=== PATIENT | male | born 1950 | race Caucasian/White ===

== ENCOUNTER 2016-03-21 11:06 | Outpatient (CLI) | payer MEDICARE | END 2016-03-21 11:07 | disposition home or self-care (01) | DX: I48.91 Unspecified atrial fibrillation (principal); I51.7 Cardiomegaly ==

== ENCOUNTER 2016-06-30 17:04 | Outpatient (CLI) | payer MEDICARE | END 2016-06-30 17:05 | disposition EMS.NT | DX: R00.2 Palpitations (principal); R53.83 Other fatigue; R53.1 Weakness ==

== ENCOUNTER 2019-05-25 17:08 | Outpatient (CLI) | payer MEDICARE | END 2019-05-25 17:09 | disposition critical access hospital (66) | LOC: EMS 17:08 | PROVIDERS: ATTEND Surgery | DX: R53.1 Weakness (principal); R29.810 Facial weakness | CPT/HCPCS: A0425; A0427 ==

== ENCOUNTER 2019-05-25 17:23 | Inpatient (IN) | payer MEDICARE, MEDICAID ==
[2019-05-25 17:42] LABS: BASOPHILS # (AUTO) 0.1 10^3/uL (0.0-0.1); BASOPHILS % (AUTO) 0.5 %; EOSINOPHILS # (AUTO) 0.1 10^3/uL (0.0-0.7); EOSINOPHILS % (AUTO) 0.9 %; HGB - HEMOGLOBIN 16.6 g/dL (14.0-18.0); LYMPHOCYTES # (AUTO) 1.1 10^3/uL (1.5-3.5); LYMPHOCYTES % (AUTO) 12.1 %; MEAN CORPUSCULAR HEMOGLOBIN 28.9 pg (27.0-31.0); MEAN CORPUSCULAR HGB CONC 31.9 g/dL (32.0-36.0); MEAN CORPUSCULAR VOLUME 90.6 fL (80.0-94.0); MEAN PLATELET VOLUME 11.2 fL (7.4-11.4); MONOCYTES # (AUTO) 0.8 10^3/uL (0.0-1.0); MONOCYTES % (AUTO) 8.3 %; NEUTROPHILS # (AUTO) 7.1 10^3/uL (1.5-6.6); PLT - PLATELET COUNT 243 10^3/uL (130-450); RED BLOOD COUNT 5.75 10^6/uL (4.70-6.10); RED CELL DISTRIBUTION WIDTH 15.3 % (12.0-15.0); WHITE BLOOD COUNT 9.1 x10^3/uL (4.8-10.8)
--- NOTE | 2019-05-25 17:43 | ED Physician Documentation ---
PD HPI FOCAL NEURO - Stated complaint Stated Complaint: POSS STROKE - Chief complaint Chief Complaint: Neuro - History obtained from History obtained from: Patient, EMS - History of Present Illness Timing - onset: Last night Timing - duration: Hours (19) Timing - details: Abrupt onset Severity of deficit: Severe Weakness: Face, Arm, Hand, Leg, Foot, Left Numbness: No: Face, Arm, Hand, Leg, Foot, Right, Left Associated symptoms: Fall. No: Headache, Nausea / vomiting, Seizure, Syncope, Head injury, Chest pain, Neck pain, Back pain, Fever Contributing factors: positive: Anticoagulated (pt unsure what medication he takes), Atrial fibrillation Baseline status: positive: A&OX3, ambulatory, indep Similar symptoms before: Diagnosis (R sided stroke in 2009 in [place]) Recently seen: Not recently seen Review of Systems Ten Systems: 10 systems reviewed and negative Constitutional: denies: Fever, Chills Ears: denies: Ear pain Nose: denies: Rhinorrhea / runny nose, Congestion GI: denies: Vomiting, Diarrhea Skin: denies: Rash Musculoskeletal: denies: Neck pain, Back pain Neurologic: reports: Focal weakness. denies: Seizure, Confused, Headache PD PAST MEDICAL HISTORY - Past Medical History Past Medical History: Yes Cardiovascular: Hypertension, Atrial fibrillation Neuro: CVA - Present Medications Home Medications: Ambulatory Orders Medication Instructions Recorded Confirmed Amlodipine Besylate 10 mg PO DAILY 01/18/15 01/18/15 lisinopriL [Lisinopril] 20 mg PO DAILY 01/18/15 05/25/19 Carvedilol 12.5 mg PO DAILY 05/25/19 05/25/19 Furosemide 40 mg PO DAILY 05/25/19 05/25/19 Levothyroxine [Synthroid] 100 mcg PO DAILY 05/25/19 05/25/19 Warfarin Sodium 5 mg PO DAILY 05/25/19 05/25/19 amLODIPine [Norvasc] 10 mg PO DAILY 05/25/19 05/25/19 - Allergies Allergies/Adverse Reactions: Allergies Allergy/AdvReac Type Severity Reaction Status Date / Time erythromycin base Allergy Unknown Verified 05/25/19 17:32 - Living Situation Living Arrangement: reports: At home - Social History Does the pt smoke?: No Smoking Status: Never smoker Does the pt have substance abuse?: No - Family History Family history: reports: Non contributory PD ED PE NORMAL - Vitals Vital signs reviewed: Yes - General General: Alert and oriented X 3, No acute distress, Well developed/nourished - HEENT HEENT: PERRL, Ears normal, Moist mucous membranes - Neck Neck: Supple, no meningeal sign - Cardiac Cardiac: RRR, Strong equal pulses - Respiratory Respiratory: No respiratory distress, Clear bilaterally - Abdomen Abdomen: Soft, Non tender, Non distended - Back Back: No spinal TTP - Derm Derm: Warm and dry - Extremities Extremities: No tenderness to palpate - Neuro Neuro: Alert and oriented X 3, No sensory deficit, Other (see NIHSS) Eye Opening: Spontaneous Motor: Obeys Commands Verbal: Oriented GCS Score: 15 - Psych Psych: Normal mood, Normal affect NIHSS - Time Time: 17:40 - Level of Consciousness Level of consciousness: (0) Alert, Keenly responsive LOC Questions: (0) Answers both Q's correct LOC Commands: (0) Performs both correctly - Gaze Best Gaze: (0) Normal - Visual Visual: (0) No loss - Facial Palsy Facial Palsy: (2) Partial paralysis - Motor Arms (both separate) Motor Arm (right): (0) No drift Motor Arm (left): (3) No effort against gravity - Motor Legs (both separate) Motor Leg (right): (0) No drift Motor Leg (left): (2) Some effort against gravity - Limb Ataxia Limb Ataxia: (2) Present in 2 limbs - Sensory Sensory: (0) Normal - Best Language Best Language: (1) [id number] - Dysarthria Dysarthria: (1) [id number] dysarthria - Extinction and Inattention (formally neg Extinction and inattention: (0) No abnormality - Total Score/Results Total Score/Result: 11 Results - Vitals Vitals: Vital Signs - 24 hr 05/25/19 05/25/19 17:32 18:12 Temperature 36.3 C L Heart Rate 134 H 108 H Respiratory 20 14 Rate Blood Pressure 195/156 H O2 Saturation 100 97 Oxygen O2 Source Room air - EKG (time done) 1734 Rate: Rate (enter#) (113) Rhythm: Atrial fibrillation (with RVR) [place]: Normal QRS: LVH - Labs Labs: Laboratory Tests 05/25/19 05/25/19 05/25/19 17:25 17:25 17:25 WBC 9.1 RBC 5.75 Hgb 16.6 Hct 52.1 H MCV 90.6 MCH 28.9 MCHC 31.9 L RDW 15.3 H Plt Count 243 MPV 11.2 Neut # (Auto) 7.1 H Lymph # (Auto) 1.1 L Calloway # (Auto) 0.8 Eos # (Auto) 0.1 Baso # (Auto) 0.1 Absolute Nucleated RBC 0.00 Nucleated RBC % 0.0 PT 14.3 H INR 1.3 H APTT 28.4 Anti-Xa Level Sodium 142 Potassium 3.3 L Chloride 106 Carbon Dioxide 26 Anion Gap 10.0 BUN 33 H Creatinine 1.9 H Estimated GFR (MDRD) 35 L Glucose 82 Calcium 9.1 Magnesium Total Bilirubin 2.1 H AST 19 ALT 15 Alkaline Phosphatase 55 Troponin I High Sens Total Protein 7.6 Albumin 3.9 Globulin 3.7 Albumin/Globulin Ratio 1.1 Lipase 23 Urine Color Urine Clarity Urine pH Ur Specific Terrell Urine Protein Urine Glucose (UA) Urine Ketones Urine Occult Blood Urine Nitrite Urine Bilirubin Urine Urobilinogen Ur Leukocyte Esterase Urine RBC Urine WBC Ur Squamous Epith Cells Urine Bacteria Ur Microscopic Review Urine Culture Comments 05/25/19 05/25/19 05/25/19 17:25 17:25 17:25 WBC RBC Hgb Hct MCV MCH MCHC RDW Plt Count MPV Neut # (Auto) Lymph # (Auto) Calloway # (Auto) Eos # (Auto) Baso # (Auto) Absolute Nucleated RBC Nucleated RBC % PT INR APTT Anti-Xa Level 0.0 Sodium Potassium Chloride Carbon Dioxide Anion Gap BUN Creatinine Estimated GFR (MDRD) Glucose Calcium Magnesium 2.5 Total Bilirubin AST ALT Alkaline Phosphatase Troponin I High Sens 138.9 H* Total Protein Albumin Globulin Albumin/Globulin Ratio Lipase Urine Color Urine Clarity Urine pH Ur Specific Terrell Urine Protein Urine Glucose (UA) Urine Ketones Urine Occult Blood Urine Nitrite Urine Bilirubin Urine Urobilinogen Ur Leukocyte Esterase Urine RBC Urine WBC Ur Squamous Epith Cells Urine Bacteria Ur Microscopic Review Urine Culture Comments 05/25/19 19:15 WBC RBC Hgb Hct MCV MCH MCHC RDW Plt Count MPV Neut # (Auto) Lymph # (Auto) Calloway # (Auto) Eos # (Auto) Baso # (Auto) Absolute Nucleated RBC Nucleated RBC % PT INR APTT Anti-Xa Level Sodium Potassium Chloride Carbon Dioxide Anion Gap BUN Creatinine Estimated GFR (MDRD) Glucose Calcium Magnesium Total Bilirubin AST ALT Alkaline Phosphatase Troponin I High Sens Total Protein Albumin Globulin Albumin/Globulin Ratio Lipase Urine Color YELLOW Urine Clarity CLEAR Urine pH 6.0 Ur Specific Terrell >=1.030 H Urine Protein 100 H Urine Glucose (UA) NEGATIVE Urine Ketones TRACE Urine Occult Blood SMALL H Urine Nitrite NEGATIVE Urine Bilirubin NEGATIVE Urine Urobilinogen 0.2 (NORMAL) Ur Leukocyte Esterase NEGATIVE Urine RBC 0-5 Urine WBC 0-3 Ur Squamous Epith Cells RARE Squamous Urine Bacteria Rare Ur Microscopic Review INDICATED Urine Culture Comments NOT INDICATED - Rads (name of study) head CT Radiology: Prelim report reviewed, EMP read contemporaneously, See rad report (1. There is a small region of white matter abnormality involving the posterior right frontal lobe measuring 15 x 15 mm that may represent a region of late acute to subacute infarct. Consider MR brain for further evaluation. 2. No acute intracranial hemorrhage, mass, hydrocephalus, or midline shift. 3. Small-volume encephalomalacia and gliosis of the right frontal lobe that may represent region of prior infarct. 4. Old chronic lacunar infarcts are seen, as detailed above. There is additional mild to moderate white matter changes that appear chronic suggesting potential sequela of chronic small vessel ischemic disease. ) PD MEDICAL DECISION MAKING - ED course Complexity details: reviewed results, re-evaluated patient, considered differential, d/w patient, d/w [facility] consultant ED course: 69-year-old male with a dense left-sided hemiparesis that occurred approximately 19 to 20 hours prior to arrival. His CT scan shows evidence of a subacute infarct. Discussed the case with [facility] neurology, we will admit the patient here for further evaluation and care. He is also found to be in atrial fibrillation with rapid ventricular response. A diltiazem drip was going to be started, but his rate became controlled on its own. He does not appear to be taking his warfarin at home. Discussed the case with Dr. Call, hospitalist who accepts This document was made in part using voice recognition software. While efforts are made to proofread this document, sound alike and grammatical errors may occur. His friend came to the emergency department and went home to get his medications and his medication list. She states that his warfarin bottle is full and the pills do not appear to have been taken. She states he has a history of depression as well. Departure - Departure Disposition: 66 [facility] DC/Xfer Clinical Impression: Atrial fibrillation with rapid ventricular response Cerebrovascular accident (CVA) Qualifiers: CVA mechanism: unspecified Qualified Code(s): I63.9 - Cerebral infarction, unspecified Hypertension Qualifiers: Hypertension type: essential hypertension Qualified Code(s): I10 - Essential (primary) hypertension Condition: Stable
[2019-05-25 17:48] LABS: INR 1.3 (0.8-1.2); PT - PROTHROMBIN TIME 14.3 secs (9.9-12.6)
[2019-05-25 17:54] LABS: ALBUMIN 3.9 g/dL (3.2-5.5); ALBUMIN/GLOBULIN RATIO 1.1 (1.0-2.2); BILIRUBIN,TOTAL 2.1 mg/dL (0.2-1.0); CALCIUM 9.1 mg/dL (8.5-10.3); CREATININE 1.9 mg/dL (0.6-1.2); TOTAL PROTEIN 7.6 g/dL (6.7-8.2)
[2019-05-25 17:55] LABS: PARTIAL THROMBOPLASTIN TIME 28.4 secs (24.9-33.3)
[2019-05-25] MEDS ORDERED: diltiaZEM INJ 125 MG in DEXTROSE 5% 100 ML IV STA (18:10)
--- NOTE | 2019-05-25 18:12 | CT Report ---
Reason: L sided weakness Procedure Date: 05/25/2019 Accession Number: [id number] / [id number] Procedure: CT - Head W/O Stroke Protocol CPT Code: Final Report FULL RESULT: EXAM: CT HEAD. EXAM DATE: 05/25/2019 05:53 PM. CLINICAL HISTORY: 69-year-old presenting with left-sided weakness and facial droop since 2200 hours on 05/24/2019. Evaluate for intracranial pathology. COMPARISON: HEAD 04/03/2007 1:23 PM. TECHNIQUE: Multiaxial CT images were obtained from the foramen magnum to the vertex. Reformats: Sagittal and coronal. IV contrast: None. In accordance with CT protocol optimization, one or more of the following dose reduction techniques were utilized for this exam: automated exposure control, adjustment of mA and/or KV based on patient size, or use of iterative reconstructive technique. FINDINGS: Parenchyma: There is a region of white matter normality involving the posterior right frontal lobe measuring 15 x 15 mm (series 3, image 20). Small volume encephalomalacia and gliosis of the right frontal lobe. There is old chronic lacunar infarct involving the left thalamus, right putamen, right anterior limb of the right internal capsule, right centrum semiovale, and left centrum semiovale. There is additional mild bilateral areas of white matter hypoattenuation seen that are age-indeterminate but appear chronic. No acute parenchymal hemorrhage, mass, or midline shift. Extraaxial Spaces: Normal for age. No subdural or epidural collections identified. Ventricles: Normal in size and position. Sinuses and Orbits: Imaged paranasal sinuses, orbits, and mastoids show no significant abnormality. Bones: No evidence of fracture or calvarial defect. Other: Vascular calcifications of the cavernous and supraclinoid ICA segments. IMPRESSION: 1. There is a small region of white matter abnormality involving the posterior right frontal lobe measuring 15 x 15 mm that may represent a region of late acute to subacute infarct. Consider MR brain for further evaluation. 2. No acute intracranial hemorrhage, mass, hydrocephalus, or midline shift. 3. Small-volume encephalomalacia and gliosis of the right frontal lobe that may represent region of prior infarct. 4. Old chronic lacunar infarcts are seen, as detailed above. There is additional mild to moderate white matter changes that appear chronic suggesting potential sequela of chronic small vessel ischemic disease. RADIA The critical test notification system was initiated by Dr. Julien Benson at 06:11 PM on 05/25/2019. The above critical test findings were discussed with Sy Schuster by Dr. Julien Benson at 06:12 PM on 05/25/2019.
[2019-05-25] MEDS ORDERED: ACETAMINOPHEN 325 MG TABLET PO PRN (19:23)
[2019-05-25 19:24] LABS: BILIRUBIN,URINE NEGATIVE (NEGATIVE); GLUCOSE, URINE (UA) NEGATIVE (NEGATIVE); KETONES,URINE (UA) TRACE mg/dL (NEGATIVE); LEUKOCYTE ESTERASE, URINE NEGATIVE (NEGATIVE); NITRITE,URINE NEGATIVE (NEGATIVE); OCCULT BLOOD,URINE SMALL (NEGATIVE); PROTEIN,URINE 100 mg/dL (NEGATIVE); UROBILINOGEN,URINE 0.2 (NORMAL) E.U./dL (NORMAL)
[2019-05-25] MEDS ORDERED: ASPIRIN CHEW 81 MG TABLET PO STA (19:27)
[2019-05-25] MEDS ORDERED: POTASSIUM CHLORIDE 20 MEQ TABLET PO STA (19:34)
[2019-05-25 19:36] LABS: CLARITY,URINE CLEAR (CLEAR)
[2019-05-25 19:40] LABS: BACTERIA,URINE Rare /HPF (None Seen); RBC,URINE 0-5 /HPF (0-5); SQUAMOUS EPITHELIAL CELL,UR RARE Squamous (<= Few)
--- NOTE | 2019-05-25 19:40 | HISTORY & PHYSICAL EXAMINATION ---
Chief Complaint - Chief Complaint Chief Complaint: Left side weakness History of Present Illness - Admitted From Admitted From:: Home - History Obtained From Records Reviewed: Yes History obtained from: Patient, ER Physician, EMR - History of Present Illness HPI Comment/Other: This is a 69-year-old male with a past medical history significant for atrial fibrillation, hypertension, hypothyroidism, chronic kidney disease stage III, prior history of stroke who presents today complaining of left-sided weakness that began yesterday at 10 PM. He states he is a prior history of stroke about 10 years ago but has no residual deficits from that. At baseline, he ambulates on his own without a cane or walker. He states his symptoms have not improved today and that is why he sought medical attention. He reports feeling weak in his left arm and left leg. He is unable to move his left upper extremity except for squeezing his hand. He is barely able to lift his left leg off of the bed. He states he kept on falling at home because of the weakness. He reports no headache, blurry vision, numbness. He reports no right-sided weakness. He denies any chest pain, dyspnea. He states he does have hypertension and he is on antihypertensives but he did not take them today. States he is also on Coumadin but he is not always compliant with the medication. A family friend told the emergency department provider that his prescription for warfarin had a full bottle still. She also told the emergency department provider that he has not been himself this past few weeks and that he appears depressed. In the emergency department, he was found to be afebrile with temperature of 36.3 C. He was tachycardic with a heart rate of 134 and in atrial fibrillation. He was also hypertensive with a blood pressure of 195/156. He was not tachypneic and saturating well on room air. CT of the head was obtained which was concerning for an acute subacute 15 x 15 mm infarct in the right posterior frontal lobe. Given these findings, medicine was consulted for admission. I did discuss goals of care with the patient and he would like to be a full code . History - Past Medical History Cardiovascular: reports: Hypertension, Atrial fibrillation Neuro: reports: CVA Endocrine/Autoimmune: reports: HyPOthyroidism : reports: Renal insuffiency MRSA Hx?: No - Family & Social History Family History Comment/Other: He does not recall any family history to his knowledge. He reports both of his parents are . Living arrangement: At home Living Situation: Alone Social History Notes: He lives at home alone. He is now retired but was previously [place] an auto insurance follow [place] He [place]. He also denies alcohol use. - Substance History Use: Uses substance without health or social issues: NONE Meds/Allgy - Home Medications Home Medications: Ambulatory Orders Medication Instructions Recorded Confirmed Amlodipine Besylate 10 mg PO DAILY 01/18/15 01/18/15 lisinopriL [Lisinopril] 20 mg PO DAILY 01/18/15 05/25/19 Carvedilol 12.5 mg PO DAILY 05/25/19 05/25/19 Furosemide 40 mg PO DAILY 05/25/19 05/25/19 Levothyroxine [Synthroid] 100 mcg PO DAILY 05/25/19 05/25/19 Warfarin Sodium 5 mg PO DAILY 05/25/19 05/25/19 amLODIPine [Norvasc] 10 mg PO DAILY 05/25/19 05/25/19 - Allergies Allergies/Adverse Reactions: Allergies Allergy/AdvReac Type Severity Reaction Status Date / Time erythromycin base Allergy Unknown Verified 05/25/19 17:32 Review of Systems - Constitutional Constitutional: reports: Weakness - Eyes Eyes: denies: Blurred vision - Ears, Nose & Throat Ears, Nose & Throat: denies: Nasal congestion, Sore throat - Cardiovascular Cariovascular: reports: Edema. denies: Palpitations, Chest pain, Exertional dyspnea, Decr. exercise tolerance - Respiratory Respiratory: denies: Cough, SOB at rest, SOB with exertion - Gastrointestinal Gastrointestinal: denies: Abdominal pain, Nausea, Vomiting - Genitourinary Genitourinary: denies: Dysuria, Frequency, Hematuria - Musculoskeletal Musculoskeletal: reports: Muscle weakness. denies: Muscle pain - Integumentary Integumentary: denies: Rash - Neurological Neurological: reports: Focal weakness. denies: Headache, Dizziness, Numbness - Hematologic/Lymphatic Hematologic/Lymphatic: denies: Anemia, Bleeding tendencies - All Other Systems All Other Systems: reports: Reviewed and negative Prior Level of Functionality: He was independent with his ADLs prior to this admission. Exam - Vital Signs Reviewed Vital Signs: Yes Vital Signs: Vital Signs x48h Temp Pulse Resp BP Pulse Ox 05/25/19 18:12 108 H 14 97 05/25/19 17:32 36.3 C L 134 H 20 195/156 H 100 - Physical Exam General Appearance: positive: Alert, Mild distress, Other Eyes Bilateral: positive: PERRL, Conjunctivae nml, No scleral icterus Neck: positive: Thyroid nml Respiratory: positive: No respiratory distress, Other (Diminished breath sounds). negative: Wheezes, Rales, Rhonchi Cardiovascular: positive: Irregularly irregular, Tachycardia. negative: Regular rate & rhythm, Bradycardia, Systolic murmur, Diastolic murmur Abdomen: positive: Non-tender, Nml bowel sounds, No distention. negative: Tenderness Skin: positive: Warm, Dry, Other (He has chronic venous stasis changes over his bilateral lower extremities) Extremities: positive: Pedal edema (He has about +2 pitting edema in the bilateral lower extremities.) Neurologic/Psychiatric: positive: Weakness (He has 5 out of 5 motor strength in the right upper and lower extremities. He has 3 out of 5 motor strength in his left lower extremity. He has 1 out of 5 motor strength in left upper extremity. He is able to squeeze his left hand but is unable to shrug his left shoulder or move the extremity otherwise.), Facial droop (He has a left-sided facial droop.), Slurred/abnml speech (Speech is slurred.), Other (There appears to be a cranial nerve VII deficit as he is unable to elevate his left eyebrow. Reports facial sensation is intact.). negative: CN's nml (2-12), Motor nml (He has 5 out of 5 motor strength in his right upper and lower extremities. He has about 1 out of 5 motor strength in his left upper extremity. He is able to squeeze his hands but is unable to shrug his left shoulder or move the hand otherwise. He has about 2 out of 5 motor strength in his left lower extremity. Sensation is intact.), Disoriented to person, Disoriented to place Conclusion/Plan - Problem List (1) Cerebrovascular accident (CVA) Conclusion/Plan: Presents with left-sided hemiparesis and facial droop that began on May 23 at 10 PM. Unfortunately, he did not seek medical evaluation until the following day. CT today shows concern for acute subacute infarct involving the posterior right frontal lobe measuring [id number]. He does have a history of hypertension and atrial fibrillation. He supposed be on Coumadin but his INR is subtherapeutic. No history of diabetes he does not appear to be on a statin at home. We will administer aspirin 325 mg once. Start him on Lipitor 80 mg. Wi ll be continued on aspirin 81 mg daily. Given his symptoms began yesterday, we will allow for permissive hypertension over the next few hours and resume his home antihypertensives in the morning. We will hold off on resuming anticoagulation until MRI of the brain is obtained to evaluate for the size of the stroke. Given he was subtherapeutic on Coumadin, he may benefit from Eliquis or Xarelto on discharge. We will check an A1c and lipid panel in the morning. Obtain echocardiogram and carotid Dopplers. PT and OT have been consulted. We will also consult speech therapy. We will put him on a mechanical soft diet for the time being. Neurochecks every 2 hours. Qualifiers: CVA mechanism: unspecified Qualified Code(s): I63.9 - Cerebral infarction, unspecified (2) Atrial fibrillation with rapid ventricular response Conclusion/Plan: He has a history of atrial fibrillation for which he is taking Coumadin and carvedilol. He presented in rapid regular response with a heart rate in the 130 s and his INR is subtherapeutic at 1.3. He received diltiazem IV in the emerge department with improvement of his heart rate to the 80s to 100s. Given the concern for acute stroke, we would like to allow for permissive hypertension but if it becomes difficult to rate control, we may need to use IV Lopressor or Cardizem. We can also consider digoxin if need be although given his renal insufficiency at baseline, this would only be used in the acute setting. We will check a troponin and monitor him on telemetry. Obtain echocardiogram. (3) Hypertension Conclusion/Plan: He does have a history of hypertension and his blood pressure on arrival to emergency department was 195/156. Given the stroke and the fact that her symptoms began less than 24 hours ago, will allow for permissive hypertension. As he did not receive alteplase, he will keep his systolic blood pressure less than 220 and his diastolic less than 120. His diastolic was in the 150s on arrival and we will recheck this. If it remains elevated, we will administer labetalol IV. We will look to resume his oral antihypertensives tomorrow as long as he remains neurologically stable. Qualifiers: Hypertension type: essential hypertension Qualified Code(s): I10 - Essential (primary) hypertension (4) Chronic kidney disease, stage III (moderate) Conclusion/Plan: He has CKD stage III which appears be secondary to hypertension. His creatinine is currently 1.9 his baseline appears to be around 1.6. We will resume his lisinopril in the morning and continue to monitor his renal function and urine output. (5) Hypokalemia Conclusion/Plan: Potassium is decreased at 3.3. This may be contributing to his atrial fibrillation with rapid ventricular response. We will replace and monitor. (6) Hypothyroidism Conclusion/Plan: We will continue his home Synthroid. Check TSH in the morning. - Lab Results Lab results reviewed: Yes Fish Bones: 05/25/19 17:25 05/25/19 17:25 - Diagnostic Imaging Results Diagnostic Imaging Results: positive: Final report reviewed - EKG Results EKG Interpreted Independently: Yes EKG Comparison: Changed from prior EKG (Prior EKG showed a sinus rhythm. LVH was also present at that time.) EKG Findings: His EKG shows atrial fibrillation with a heart rate in the 110s. There is LVH present. No obvious ST segment changes. There is a PVC. Core Measures - Anticipated LOS I expect patient to be DC'd or transferred within 96 hours.: Yes - Issues Hospital Issues and Management Plan: 69-year-old male with history of atrial fibrillation and prior stroke admitted for new left-sided weakness found to have acute to subacute stroke on CT. He is also in atrial fibrillation with rapid ventricular response. Will admit for MRI, echo, Dopplers. Rate control and resume anticoagulation when appropriate. - DVT/VTE - Prophylaxis VTE/DVT Device ordered at admit?: Yes VTE/DVT Prophylaxis med ordered at admit?: Yes
[2019-05-25] MEDS ORDERED: LABETALOL 20 MG/4 ML SYRINGE IVP STA ×2 (20:26→21:32)
[2019-05-25] MEDS: ATORVASTATIN 40 MG TABLET PO SCH (21:13)
[2019-05-25] MEDS: POTASSIUM CHLOR 10 MEQ/100 ML 10 MEQ/100 ML BAG IV SCH ×2 (21:14→22:21)
[2019-05-25] MEDS: HEPARIN 5,000 UNIT/ML VIAL SUBQ SCH (22:17)
[2019-05-26] MEDS: SODIUM CHLORIDE FLUSH 0.9% 10 ML SYRINGE IVP PRN (00:40)
[2019-05-26] MEDS: SODIUM CHLORIDE FLUSH 0.9% 10 ML SYRINGE IVP SCH ×3 (00:40→20:44)
[2019-05-26] MEDS: MIN OIL/DIMETHICON/COCONUT OIL 92 GM TUBE TOP PRN (03:19)
[2019-05-26 05:22] LABS: BASOPHILS % (AUTO) 0.4 %; EOSINOPHILS # (AUTO) 0.1 10^3/uL (0.0-0.7); EOSINOPHILS % (AUTO) 0.9 %; HGB - HEMOGLOBIN 16.3 g/dL (14.0-18.0); LYMPHOCYTES # (AUTO) 1.2 10^3/uL (1.5-3.5); LYMPHOCYTES % (AUTO) 16.4 %; MEAN CORPUSCULAR HEMOGLOBIN 28.4 pg (27.0-31.0); MEAN CORPUSCULAR VOLUME 88.7 fL (80.0-94.0); MEAN PLATELET VOLUME 11.5 fL (7.4-11.4); MONOCYTES # (AUTO) 0.5 10^3/uL (0.0-1.0); MONOCYTES % (AUTO) 6.6 %; NEUTROPHILS # (AUTO) 5.7 10^3/uL (1.5-6.6); PLT - PLATELET COUNT 240 10^3/uL (130-450); RED BLOOD COUNT 5.74 10^6/uL (4.70-6.10); WHITE BLOOD COUNT 7.5 x10^3/uL (4.8-10.8)
[2019-05-26 05:26] LABS: INR 1.2 (0.8-1.2); PT - PROTHROMBIN TIME 13.5 secs (9.9-12.6)
[2019-05-26 05:40] LABS: HEMOGLOBIN A1C 0.58 g/dL; HEMOGLOBIN A1C % 5.3 % (4.6-6.2)
[2019-05-26 05:45] LABS: BUN - BLOOD UREA NITROGEN 34 mg/dL (6-20); CARBON DIOXIDE - CO2 24 mmol/L (21-32); CHLORIDE 106 mmol/L (101-111); CHOLESTEROL 191 mg/dL; CREATININE 1.8 mg/dL (0.6-1.2); GLUCOSE 94 mg/dL (70-100); HDL CHOLESTEROL 38 mg/dL; MAGNESIUM 2.5 mg/dL (1.7-2.8); PHOSPHORUS 4.2 mg/dL (2.5-4.6); SODIUM 140 mmol/L (135-145)
[2019-05-26 06:04] LABS: LDL CHOLESTEROL,CALCULATED 139 mg/dL; LDL/HDL RATIO 3.7 (<3.6); VLDL CHOLESTEROL 14 mg/dL
[2019-05-26] MEDS: LEVOTHYROXINE 100 MCG TABLET PO SCH (06:32)
[2019-05-26] MEDS ORDERED: POTASSIUM CHLORIDE 20 MEQ TABLET PO ONE (06:56)
[2019-05-26] MEDS: POTASSIUM CHLOR 10 MEQ/100 ML 10 MEQ/100 ML BAG IV SCH ×2 (08:09→09:17)
[2019-05-26] MEDS: lisinopriL 20 MG TABLET PO SCH (08:10)
[2019-05-26] MEDS: SENNA 8.6 MG TABLET PO SCH (08:10)
[2019-05-26] MEDS: ASPIRIN CHEW 81 MG TABLET PO SCH (08:10)
[2019-05-26] MEDS: carvediloL 12.5 MG TABLET PO SCH ×2 (08:10→20:44)
[2019-05-26] MEDS: polyethylene glycoL 3350 17 GM PACKET PO SCH (08:10)
[2019-05-26] MEDS: DOCUSATE SODIUM 250 MG CAPSULE PO SCH (08:10)
[2019-05-26] MEDS: HEPARIN 5,000 UNIT/ML VIAL SUBQ SCH ×2 (08:11→20:44)
[2019-05-26] MEDS: TAMSULOSIN 0.4 MG CAPSULE PO SCH ×2 (09:17→09:48)
--- NOTE | 2019-05-26 10:13 | Ultrasound Report ---
Reason: Stroke. Procedure Date: 05/26/2019 Accession Number: [id number] / [id number] Procedure: US - Carotid Doppler Complete CPT Code: Addended Final Report FULL RESULT: EXAM: BILATERAL CAROTID AND VERTEBRAL ARTERY DUPLEX DOPPLER ULTRASOUND: EXAM DATE: 05/26/2019 10:02 AM CLINICAL HISTORY: Stroke. COMPARISON: HEAD W/O STROKE PROTOCOL 05/25/2019 5:46 PM CAROTID 04/09/2007 11:33 AM. TECHNIQUE: Grayscale imaging, color Doppler, and duplex spectral Doppler were used to evaluate the carotid and vertebral arteries bilaterally. Static images were obtained. FINDINGS: Right internal carotid artery is occluded. There is scattered shadowing plaque within the bilateral carotid arteries. Normal antegrade flow is present in bilateral vertebral arteries. VELOCITIES (cm/s): Transcription to insert worksheet here ICA diameter stenosis: Right: Occluded. Left: IMPRESSION: 1. The right internal carotid artery is occluded. 2. No significant sonographic abnormalities are seen within the left common carotid artery. 3. Vertebral artery flow is antegrade. General Recommendations: Stenosis =50% ICA - Follow-up ultrasound 6-12 months Stenosis Normal Study but High Risk Patient - Follow-up ultrasound 3-5 years Management recommendations and diagnostic criteria are based on current IAC endorsed standards in Carotid Artery Stenosis: Grayscale and Doppler Ultrasound Diagnosis. Validated velocity measurements with angiographic measurements and velocity criteria are extrapolated from diameter data as defined by the Society of Radiologists in Ultrasound Consensus Conference Radiology 2003; 229;340-346. [facility] The call report notification system was initiated by Dr. Lauro Quiroga at 10:11 AM on 05/26/2019. ADDENDUM: 05/26/19 10:20 The above call report findings were discussed with Dr Jimenez by Dr. Lauro Quiroga at 10:20 AM on 05/26/2019.
--- NOTE | 2019-05-26 10:37 | PHARMACY PROGRESS NOTE ---
- Best Possible Medication History Admit Date and Time: 05/25/191922 Processed by: Nursing Medication History completed: Yes Patient Interview: Pt interview ONLY source As the person ultimately responsible for medication therapy, providers are able to order a medication from an existing home medication list in [facility] via the "Reconcile Routine" prior to Confirmation of that medication by production support supervisor. Such practice is discouraged except when the physician, in their clinical judgment, deems that a medical need exists for a medication without regard to previous use.
--- NOTE | 2019-05-26 16:55 | PROVIDER PROGRESS NOTE ---
Subjective - Prog Note Date Prog Note Date: 05/26/19 Prog Note Time: 16:53 - Subjective Pt reports feeling: No change (Patient feels about the same.Unable to move his left side.Denies any confusion, blurry vision, headache.) Current Medications - Current Medications Current Medications: Active Medications Acetaminophen (Tylenol) 650 mg PO Q4HR PRN PRN Reason: Pain 1 to 4 Aspirin ([facility] Ravi Aspirin) 81 mg PO DAILY [facility] Last Admin: 05/26/19 08:10 Dose: 81 mg Atorvastatin Calcium (Lipitor) 80 mg PO QPM [facility] Last Admin: 05/25/19 21:13 Dose: 80 mg Carvedilol (Coreg) 12.5 mg PO BID [facility] Last Admin: 05/26/19 08:10 Dose: 12.5 mg Docusate Sodium (Colace 250mg Capsule) 250 - 500 mg PO DAILY [facility] Last Admin: 05/26/19 08:10 Dose: 500 mg Heparin Sodium (Porcine) () 5,000 unit SUBQ BID [facility] Last Admin: 05/26/19 08:11 Dose: 5,000 unit Levothyroxine Sodium (Synthroid) 100 mcg PO QDAC [facility] Last Admin: 05/26/19 06:32 Dose: 100 mcg Lisinopril (Zestril) 20 mg PO DAILY [facility] Last Admin: 05/26/19 08:10 Dose: 20 mg Mineral Oil (Cavilon) 1 applic TOP PRN PRN PRN Reason: Skin Care Last Admin: 05/26/19 03:19 Dose: 1 applic Polyethylene Glycol (Miralax) 17 gm PO DAILY [facility] Last Admin: 05/26/19 08:10 Dose: 17 gm Senna (Senokot) 8.6 - 17.2 mg PO DAILY [facility] Last Admin: 05/26/19 08:10 Dose: 17.2 mg Sodium Chloride (Normal Saline Flush 0.9%) 10 ml IVP PRN PRN PRN Reason: NEEDED PER PROVIDER ORDERS Last Admin: 05/26/19 00:40 Dose: 10 ml Sodium Chloride (Normal Saline Flush 0.9%) 10 ml IVP 0100,0900,1700 [facility] Last Admin: 05/26/19 08:11 Dose: 10 ml Tamsulosin HCl (Flomax) 0.4 mg PO DAILY [facility] Last Admin: 05/26/19 09:48 Dose: Not Given Amlodipine Besylate 10 mg PO DAILY 01/18/15 lisinopriL [Lisinopril] 20 mg PO DAILY 01/18/15 Carvedilol 12.5 mg PO DAILY 05/25/19 Furosemide 40 mg PO DAILY 05/25/19 Levothyroxine [Synthroid] 100 mcg PO DAILY 05/25/19 Warfarin Sodium 5 mg PO DAILY 05/25/19 amLODIPine [Norvasc] 10 mg PO DAILY 05/25/19 Objective - Vital Signs/Intake & Output Reviewed Vital Signs: Yes Vital Signs: Vital Signs x48h Temp Pulse Pulse Resp BP BP Pulse Ox 05/26/19 13:49 113/73 05/26/19 13:00 37.2 C 96 14 115/86 H 98 05/26/19 11:00 76 135/98 H 05/26/19 10:30 76 135/98 H Intake & Output: Intake & Output 05/23/19 05/24/19 05/25/19 05/26/19 23:59 23:59 23:59 23:59 Intake Total 600 890 Balance 600 890 - Objective General Appearance: positive: Lethargic Eyes Bilateral: positive: Normal inspection Neck: positive: Nml inspection, Thyroid nml, No JVD Cardiovascular: positive: No murmur, No gallop, Irregularly irregular Abdomen: positive: Non-tender, No organomegaly, Nml bowel sounds Skin: positive: Color nml Neurologic/Psychiatric: positive: Oriented x3, Sensation nml, Weakness (Left- sided weakness, flaccid paralysis of the upper and lower extremity.Unable to perform shoulder shrug.Sensation to light touch is intact on left side despite motor weakness.), Slurred/abnml speech, Depressed mood/affect. negative: Motor nml, Mood/affect nml, Sensory loss, Facial droop - Lab Results Fish Bones: 05/26/19 05:03 05/26/19 05:03 Other Labs: Lab Results x24hrs 05/26/19 05/26/19 05/26/19 Range/Units 05:03 05:03 05:03 WBC (4.8-10.8) x10^3/uL RBC (4.70-6.10) 10^6/uL Hgb (14.0-18.0) g/dL Hct (42.0-52.0) % MCV (80.0-94.0) fL MCH (27.0-31.0) pg MCHC (32.0-36.0) g/dL RDW (12.0-15.0) % Plt Count (130-450) 10^3/uL MPV (7.4-11.4) fL Neut # (Auto) (1.5-6.6) 10^3/uL Lymph # (Auto) (1.5-3.5) 10^3/uL Walton # (Auto) (0.0-1.0) 10^3/uL Eos # (Auto) (0.0-0.7) 10^3/uL Baso # (Auto) (0.0-0.1) 10^3/uL Absolute Nucleated RBC x10^3/uL Nucleated RBC % /100WBC PT (9.9-12.6) secs INR (0.8-1.2) APTT (24.9-33.3) secs Anti-Xa Level ( - 0.7) U/mL Sodium 140 (135-145) mmol/L Potassium 3.3 L (3.5-5.0) mmol/L Chloride 106 (101-111) mmol/L Carbon Dioxide 24 (21-32) mmol/L Anion Gap 10.0 (6-13) BUN 34 H (6-20) mg/dL Creatinine 1.8 H (0.6-1.2) mg/dL Estimated GFR (MDRD) 37 L (>89) Glucose 94 (70-100) mg/dL Glycated Hemoglobin 5.3 (4.6-6.2) % Estim Average Glucose 105 H (70-100) Calcium 9.0 (8.5-10.3) mg/dL Phosphorus 4.2 (2.5-4.6) mg/dL Magnesium 2.5 (1.7-2.8) mg/dL Total Bilirubin (0.2-1.0) mg/dL AST (10-42) IU/L ALT (10-60) IU/L Alkaline Phosphatase (42-121) IU/L Troponin I High Sens (2.3-19.7) ng/L Total Protein (6.7-8.2) g/dL Albumin (3.2-5.5) g/dL Globulin (2.1-4.2) g/dL Albumin/Globulin Ratio (1.0-2.2) Triglycerides 70 ( - 149) mg/dL Cholesterol 191 ( - 199) mg/dL LDL Cholesterol, Calc 139 H ( - 129) mg/dL VLDL Cholesterol 14 mg/dL HDL Cholesterol 38 L (60 - ) mg/dL LDL/HDL Ratio 3.7 (<3.6) Cholesterol/HDL Ratio 5.0 (<5.0) Lipase (22-51) U/L TSH 9.51 H (0.34-5.60) uIU/mL Urine Color Urine Clarity (CLEAR) Urine pH (5.0-7.5) PH Ur Specific Bucklin (1.002-1.030) Urine Protein (NEGATIVE) mg/dL Urine Glucose (UA) (NEGATIVE) mg/dL Urine Ketones (NEGATIVE) mg/dL Urine Occult Blood (NEGATIVE) Urine Nitrite (NEGATIVE) Urine Bilirubin (NEGATIVE) Urine Urobilinogen (NORMAL) E.U./dL Ur Leukocyte Esterase (NEGATIVE) Urine RBC (0-5) /HPF Urine WBC (0-3) /HPF Ur Squamous Epith Cells (<= Few) Urine Bacteria (None Seen) /HPF Ur Microscopic Review Urine Culture Comments 05/26/19 05/26/19 05/25/19 Range/Units 05:03 05:03 21:05 WBC 7.5 (4.8-10.8) x10^3/uL RBC 5.74 (4.70-6.10) 10^6/uL Hgb 16.3 (14.0-18.0) g/dL Hct 50.9 (42.0-52.0) % MCV 88.7 (80.0-94.0) fL MCH 28.4 (27.0-31.0) pg MCHC 32.0 (32.0-36.0) g/dL RDW 16.0 H (12.0-15.0) % Plt Count 240 (130-450) 10^3/uL MPV 11.5 H (7.4-11.4) fL Neut # (Auto) 5.7 (1.5-6.6) 10^3/uL Lymph # (Auto) 1.2 L (1.5-3.5) 10^3/uL Walton # (Auto) 0.5 (0.0-1.0) 10^3/uL Eos # (Auto) 0.1 (0.0-0.7) 10^3/uL Baso # (Auto) 0.0 (0.0-0.1) 10^3/uL Absolute Nucleated RBC 0.00 x10^3/uL Nucleated RBC % 0.0 /100WBC PT 13.5 H (9.9-12.6) secs INR 1.2 (0.8-1.2) APTT (24.9-33.3) secs Anti-Xa Level ( - 0.7) U/mL Sodium (135-145) mmol/L Potassium (3.5-5.0) mmol/L Chloride (101-111) mmol/L Carbon Dioxide (21-32) mmol/L Anion Gap (6-13) BUN (6-20) mg/dL Creatinine (0.6-1.2) mg/dL Estimated GFR (MDRD) (>89) Glucose (70-100) mg/dL Glycated Hemoglobin (4.6-6.2) % Estim Average Glucose (70-100) Calcium (8.5-10.3) mg/dL Phosphorus (2.5-4.6) mg/dL Magnesium (1.7-2.8) mg/dL Total Bilirubin (0.2-1.0) mg/dL AST (10-42) IU/L ALT (10-60) IU/L Alkaline Phosphatase (42-121) IU/L Troponin I High Sens 134.5 H* (2.3-19.7) ng/L Total Protein (6.7-8.2) g/dL Albumin (3.2-5.5) g/dL Globulin (2.1-4.2) g/dL Albumin/Globulin Ratio (1.0-2.2) Triglycerides ( - 149) mg/dL Cholesterol ( - 199) mg/dL LDL Cholesterol, Calc ( - 129) mg/dL VLDL Cholesterol mg/dL HDL Cholesterol (60 - ) mg/dL LDL/HDL Ratio (<3.6) Cholesterol/HDL Ratio (<5.0) Lipase (22-51) U/L TSH (0.34-5.60) uIU/mL Urine Color Urine Clarity (CLEAR) Urine pH (5.0-7.5) PH Ur Specific Bucklin (1.002-1.030) Urine Protein (NEGATIVE) mg/dL Urine Glucose (UA) (NEGATIVE) mg/dL Urine Ketones (NEGATIVE) mg/dL Urine Occult Blood (NEGATIVE) Urine Nitrite (NEGATIVE) Urine Bilirubin (NEGATIVE) Urine Urobilinogen (NORMAL) E.U./dL Ur Leukocyte Esterase (NEGATIVE) Urine RBC (0-5) /HPF Urine WBC (0-3) /HPF Ur Squamous Epith Cells (<= Few) Urine Bacteria (None Seen) /HPF Ur Microscopic Review Urine Culture Comments 05/25/19 05/25/19 05/25/19 Range/Units 19:15 17:25 17:25 WBC (4.8-10.8) x10^3/uL RBC (4.70-6.10) 10^6/uL Hgb (14.0-18.0) g/dL Hct (42.0-52.0) % MCV (80.0-94.0) fL MCH (27.0-31.0) pg MCHC (32.0-36.0) g/dL RDW (12.0-15.0) % Plt Count (130-450) 10^3/uL MPV (7.4-11.4) fL Neut # (Auto) (1.5-6.6) 10^3/uL Lymph # (Auto) (1.5-3.5) 10^3/uL Walton # (Auto) (0.0-1.0) 10^3/uL Eos # (Auto) (0.0-0.7) 10^3/uL Baso # (Auto) (0.0-0.1) 10^3/uL Absolute Nucleated RBC x10^3/uL Nucleated RBC % /100WBC PT (9.9-12.6) secs INR (0.8-1.2) APTT (24.9-33.3) secs Anti-Xa Level ( - 0.7) U/mL Sodium (135-145) mmol/L Potassium (3.5-5.0) mmol/L Chloride (101-111) mmol/L Carbon Dioxide (21-32) mmol/L Anion Gap (6-13) BUN (6-20) mg/dL Creatinine (0.6-1.2) mg/dL Estimated GFR (MDRD) (>89) Glucose (70-100) mg/dL Glycated Hemoglobin (4.6-6.2) % Estim Average Glucose (70-100) Calcium (8.5-10.3) mg/dL Phosphorus (2.5-4.6) mg/dL Magnesium 2.5 (1.7-2.8) mg/dL Total Bilirubin (0.2-1.0) mg/dL AST (10-42) IU/L ALT (10-60) IU/L Alkaline Phosphatase (42-121) IU/L Troponin I High Sens 138.9 H* (2.3-19.7) ng/L Total Protein (6.7-8.2) g/dL Albumin (3.2-5.5) g/dL Globulin (2.1-4.2) g/dL Albumin/Globulin Ratio (1.0-2.2) Triglycerides ( - 149) mg/dL Cholesterol ( - 199) mg/dL LDL Cholesterol, Calc ( - 129) mg/dL VLDL Cholesterol mg/dL HDL Cholesterol (60 - ) mg/dL LDL/HDL Ratio (<3.6) Cholesterol/HDL Ratio (<5.0) Lipase (22-51) U/L TSH (0.34-5.60) uIU/mL Urine Color YELLOW Urine Clarity CLEAR (CLEAR) Urine pH 6.0 (5.0-7.5) PH Ur Specific Bucklin >=1.030 H (1.002-1.030) Urine Protein 100 H (NEGATIVE) mg/dL Urine Glucose (UA) NEGATIVE (NEGATIVE) mg/dL Urine Ketones TRACE (NEGATIVE) mg/dL Urine Occult Blood SMALL H (NEGATIVE) Urine Nitrite NEGATIVE (NEGATIVE) Urine Bilirubin NEGATIVE (NEGATIVE) Urine Urobilinogen 0.2 (NORMAL) (NORMAL) E.U./dL Ur Leukocyte Esterase NEGATIVE (NEGATIVE) Urine RBC 0-5 (0-5) /HPF Urine WBC 0-3 (0-3) /HPF Ur Squamous Epith Cells RARE Squamous (<= Few) Urine Bacteria Rare (None Seen) /HPF Ur Microscopic Review INDICATED Urine Culture Comments NOT INDICATED 05/25/19 05/25/19 05/25/19 Range/Units 17:25 17:25 17:25 WBC (4.8-10.8) x10^3/uL RBC (4.70-6.10) 10^6/uL Hgb (14.0-18.0) g/dL Hct (42.0-52.0) % MCV (80.0-94.0) fL MCH (27.0-31.0) pg MCHC (32.0-36.0) g/dL RDW (12.0-15.0) % Plt Count (130-450) 10^3/uL MPV (7.4-11.4) fL Neut # (Auto) (1.5-6.6) 10^3/uL Lymph # (Auto) (1.5-3.5) 10^3/uL Walton # (Auto) (0.0-1.0) 10^3/uL Eos # (Auto) (0.0-0.7) 10^3/uL Baso # (Auto) (0.0-0.1) 10^3/uL Absolute Nucleated RBC x10^3/uL Nucleated RBC % /100WBC PT 14.3 H (9.9-12.6) secs INR 1.3 H (0.8-1.2) APTT 28.4 (24.9-33.3) secs Anti-Xa Level 0.0 ( - 0.7) U/mL Sodium 142 (135-145) mmol/L Potassium 3.3 L (3.5-5.0) mmol/L Chloride 106 (101-111) mmol/L Carbon Dioxide 26 (21-32) mmol/L Anion Gap 10.0 (6-13) BUN 33 H (6-20) mg/dL Creatinine 1.9 H (0.6-1.2) mg/dL Estimated GFR (MDRD) 35 L (>89) Glucose 82 (70-100) mg/dL Glycated Hemoglobin (4.6-6.2) % Estim Average Glucose (70-100) Calcium 9.1 (8.5-10.3) mg/dL Phosphorus (2.5-4.6) mg/dL Magnesium (1.7-2.8) mg/dL Total Bilirubin 2.1 H (0.2-1.0) mg/dL AST 19 (10-42) IU/L ALT 15 (10-60) IU/L Alkaline Phosphatase 55 (42-121) IU/L Troponin I High Sens (2.3-19.7) ng/L Total Protein 7.6 (6.7-8.2) g/dL Albumin 3.9 (3.2-5.5) g/dL Globulin 3.7 (2.1-4.2) g/dL Albumin/Globulin Ratio 1.1 (1.0-2.2) Triglycerides ( - 149) mg/dL Cholesterol ( - 199) mg/dL LDL Cholesterol, Calc ( - 129) mg/dL VLDL Cholesterol mg/dL HDL Cholesterol (60 - ) mg/dL LDL/HDL Ratio (<3.6) Cholesterol/HDL Ratio (<5.0) Lipase 23 (22-51) U/L TSH (0.34-5.60) uIU/mL Urine Color Urine Clarity (CLEAR) Urine pH (5.0-7.5) PH Ur Specific Bucklin (1.002-1.030) Urine Protein (NEGATIVE) mg/dL Urine Glucose (UA) (NEGATIVE) mg/dL Urine Ketones (NEGATIVE) mg/dL Urine Occult Blood (NEGATIVE) Urine Nitrite (NEGATIVE) Urine Bilirubin (NEGATIVE) Urine Urobilinogen (NORMAL) E.U./dL Ur Leukocyte Esterase (NEGATIVE) Urine RBC (0-5) /HPF Urine WBC (0-3) /HPF Ur Squamous Epith Cells (<= Few) Urine Bacteria (None Seen) /HPF Ur Microscopic Review Urine Culture Comments 05/25/19 Range/Units 17:25 WBC 9.1 (4.8-10.8) x10^3/uL RBC 5.75 (4.70-6.10) 10^6/uL Hgb 16.6 (14.0-18.0) g/dL Hct 52.1 H (42.0-52.0) % MCV 90.6 (80.0-94.0) fL MCH 28.9 (27.0-31.0) pg MCHC 31.9 L (32.0-36.0) g/dL RDW 15.3 H (12.0-15.0) % Plt Count 243 (130-450) 10^3/uL MPV 11.2 (7.4-11.4) fL Neut # (Auto) 7.1 H (1.5-6.6) 10^3/uL Lymph # (Auto) 1.1 L (1.5-3.5) 10^3/uL Walton # (Auto) 0.8 (0.0-1.0) 10^3/uL Eos # (Auto) 0.1 (0.0-0.7) 10^3/uL Baso # (Auto) 0.1 (0.0-0.1) 10^3/uL Absolute Nucleated RBC 0.00 x10^3/uL Nucleated RBC % 0.0 /100WBC PT (9.9-12.6) secs INR (0.8-1.2) APTT (24.9-33.3) secs Anti-Xa Level ( - 0.7) U/mL Sodium (135-145) mmol/L Potassium (3.5-5.0) mmol/L Chloride (101-111) mmol/L Carbon Dioxide (21-32) mmol/L Anion Gap (6-13) BUN (6-20) mg/dL Creatinine (0.6-1.2) mg/dL Estimated GFR (MDRD) (>89) Glucose (70-100) mg/dL Glycated Hemoglobin (4.6-6.2) % Estim Average Glucose (70-100) Calcium (8.5-10.3) mg/dL Phosphorus (2.5-4.6) mg/dL Magnesium (1.7-2.8) mg/dL Total Bilirubin (0.2-1.0) mg/dL AST (10-42) IU/L ALT (10-60) IU/L Alkaline Phosphatase (42-121) IU/L Troponin I High Sens (2.3-19.7) ng/L Total Protein (6.7-8.2) g/dL Albumin (3.2-5.5) g/dL Globulin (2.1-4.2) g/dL Albumin/Globulin Ratio (1.0-2.2) Triglycerides ( - 149) mg/dL Cholesterol ( - 199) mg/dL LDL Cholesterol, Calc ( - 129) mg/dL VLDL Cholesterol mg/dL HDL Cholesterol (60 - ) mg/dL LDL/HDL Ratio (<3.6) Cholesterol/HDL Ratio (<5.0) Lipase (22-51) U/L TSH (0.34-5.60) uIU/mL Urine Color Urine Clarity (CLEAR) Urine pH (5.0-7.5) PH Ur Specific Bucklin (1.002-1.030) Urine Protein (NEGATIVE) mg/dL Urine Glucose (UA) (NEGATIVE) mg/dL Urine Ketones (NEGATIVE) mg/dL Urine Occult Blood (NEGATIVE) Urine Nitrite (NEGATIVE) Urine Bilirubin (NEGATIVE) Urine Urobilinogen (NORMAL) E.U./dL Ur Leukocyte Esterase (NEGATIVE) Urine RBC (0-5) /HPF Urine WBC (0-3) /HPF Ur Squamous Epith Cells (<= Few) Urine Bacteria (None Seen) /HPF Ur Microscopic Review Urine Culture Comments - Diagnostic Imaging Diagnostic Imaging Results: positive: Final report reviewed, Discussed with radiologist (Discussed with [facility] radiologist regarding the 100% occlusion of the right ICA. Discussed this finding also with neurologist at [facility]), Critical result Assessment/Plan - Problem List (1) Cerebrovascular accident (CVA) Impression: CT scan shows evidence of 1.5 cm x 1.5 cm white matter abnormality in the posterior right frontal lobe suggestive of an acute versus subacute infarct. There is also small volume encephalomalacia and gliosis of the right frontal lobe representing a region of prior infarct. In addition, there are old chronic lacunar infarct seen as well as findings of chronic small vessel ischemic disease. This coincides with the patient's physical exam findings of complete left-sided paralysis. Carotid ultrasound today revealed a 100% occluded right internal carotid artery above the bifurcation. I discussed these findings with the radiologist regarding the critical nature of the occlusion, and I also reached out to [facility] neurology on-call physician who recommended medical management at this point given that the onset of symptoms was more than 36 hours at the time of these findings and also because the patient presented about a day after the onset of weakness. He is not a candidate for any other interventional procedure and medical management is advised. Recommendation at this point is to continue aspirin, then if there is no significant increase in size on the MRI tomorrow, then the recommendation is 5 to 7 days from now, starting anticoagulation either with warfarin, or perhaps a DO AC given his history of poor compliance. In the meantime, we have reduced his home blood pressure medications in an at tempt at permissive hypertension, however despite this his blood pressure has been slowly dropping. We will continue to monitor closely Echocardiogram was done today and results are pending. Continue to work with physical therapy, Occupational Therapy, and speech therapy with for now recommendations of dysphasia diet. Ultimately he will likely require assisted facility or perhaps even Inpatient rehabilitation for placement. Qualifiers: CVA mechanism: unspecified Qualified Code(s): I63.9 - Cerebral infarction, unspecified (2) Atrial fibrillation with rapid ventricular response Impression: He had a brief episode of rapid ventricular response in the emergency room, but this was resolved with a single dose of diltiazem. Through the day, he had 1 run of V. tach of 7 beats, and mild tachycardia in the low 100s periodically but no clear rapid ventricular response though he continues to be in atrial fibrillation. Continue current medications Monitor closely, and perhaps resume home medication dosing by tomorrow which will help with rate control. (3) Acute myocardial ischemia Impression: Troponin level was elevated on admission, but then trended downward. This is likely related to the stroke, along with the atrial fibrillation with rapid ventricular response. Patient denies any chest pain. Continue telemetry monitoring and follow-up results of echocardiogram. (4) Chronic kidney disease, stage III (moderate) Impression: Kidney function is stable, avoid nephrotoxic agents. (5) Hypokalemia Impression: Potassium level unchanged today at 3.3, potassium replaced by IV, repeat labs in the morning. (6) Hypothyroidism Impression: Stable, continue Synthroid. (7) Malignant hypertension Impression: As above, permissive hypertension with gradual reduction in blood pressure over the next 24 hours.
[2019-05-26] MEDS: ATORVASTATIN 40 MG TABLET PO SCH (20:44)
[2019-05-27] MEDS: SODIUM CHLORIDE FLUSH 0.9% 10 ML SYRINGE IVP SCH ×3 (00:46→19:01)
[2019-05-27 05:38] LABS: BASOPHILS % (AUTO) 0.5 %; EOSINOPHILS # (AUTO) 0.1 10^3/uL (0.0-0.7); EOSINOPHILS % (AUTO) 0.8 %; HGB - HEMOGLOBIN 15.2 g/dL (14.0-18.0); LYMPHOCYTES # (AUTO) 0.8 10^3/uL (1.5-3.5); LYMPHOCYTES % (AUTO) 8.7 %; MEAN CORPUSCULAR HEMOGLOBIN 29.3 pg (27.0-31.0); MEAN CORPUSCULAR HGB CONC 32.5 g/dL (32.0-36.0); MONOCYTES # (AUTO) 0.6 10^3/uL (0.0-1.0); MONOCYTES % (AUTO) 6.9 %; NEUTROPHILS # (AUTO) 7.2 10^3/uL (1.5-6.6); NEUTROPHILS % (AUTO) 82.8 %; PLT - PLATELET COUNT 219 10^3/uL (130-450); RED BLOOD COUNT 5.19 10^6/uL (4.70-6.10); RED CELL DISTRIBUTION WIDTH 15.3 % (12.0-15.0); WHITE BLOOD COUNT 8.7 x10^3/uL (4.8-10.8)
[2019-05-27 05:52] LABS: MAGNESIUM 2.4 mg/dL (1.7-2.8); PHOSPHORUS 3.1 mg/dL (2.5-4.6)
[2019-05-27] MEDS: LEVOTHYROXINE 100 MCG TABLET PO SCH (06:29)
[2019-05-27] MEDS: ASPIRIN CHEW 81 MG TABLET PO SCH (09:00)
[2019-05-27] MEDS: lisinopriL 20 MG TABLET PO SCH (09:00)
[2019-05-27] MEDS: SENNA 8.6 MG TABLET PO SCH (09:00)
[2019-05-27] MEDS: polyethylene glycoL 3350 17 GM PACKET PO SCH (09:00)
[2019-05-27] MEDS: DOCUSATE SODIUM 250 MG CAPSULE PO SCH (09:00)
[2019-05-27] MEDS: TAMSULOSIN 0.4 MG CAPSULE PO SCH (09:01)
[2019-05-27] MEDS: carvediloL 12.5 MG TABLET PO SCH ×2 (09:01→20:47)
[2019-05-27] MEDS: HEPARIN 5,000 UNIT/ML VIAL SUBQ SCH ×2 (09:06→20:41)
--- NOTE | 2019-05-27 09:48 | XRAY Report ---
Reason: New lower abdominal pain, no BM 3 days Procedure Date: 05/27/2019 Accession Number: [id number] / [id number] Procedure: XR - Abdomen 1 View X-Ray CPT Code: 46791 Final Report FULL RESULT: EXAM: ABDOMEN RADIOGRAPHY EXAM DATE: 05/27/2019 09:19 AM. CLINICAL HISTORY: New lower abdominal pain, no BM 3 days. COMPARISON: None. TECHNIQUE: 1 view. FINDINGS: Bowel Gas Pattern: Within normal limits. No dilated loops. No abnormal stool volume. Other: None. IMPRESSION: Negative 1-view abdomen x-ray. [facility]
[2019-05-27] MEDS ORDERED: MAGNESIUM HYDROXIDE 2,400 MG/30 ML UDC PO ONE (10:06)
--- NOTE | 2019-05-27 10:55 | PROVIDER PROGRESS NOTE ---
Subjective - Prog Note Date Prog Note Date: 05/27/19 Prog Note Time: 10:45 - Subjective Pt reports feeling: No change Subjective: 69 yo M with past medical history of atrial fibrillation noncompliant with anticoagulation admitted on 12MAY for right frontal CVA with left hemiparesis. This morning he reports new lower belly pain - described as stiff. He denies fevers, chest pain, urge to have a bowel movement, pain with urination. He does report having trouble urinating but has improved. Nurse reports he is stable from yesterday. She is concerned by lack of participation from patient with nursing staff and PT/OT. She states he hasn't had a BM in 3 days. Objective - Vital Signs/Intake & Output Vital Signs: Vital Signs x48h Temp Pulse Resp BP Pulse Ox 05/27/19 07:49 37.4 C 119 H 20 144/119 H 96 05/27/19 06:21 136/92 H 05/27/19 05:00 36.4 C L 101 H 20 145/114 H 96 Intake & Output: Intake & Output 05/24/19 05/25/19 05/26/19 05/27/19 23:59 23:59 23:59 23:59 Intake Total 600 1550 712 Balance 600 1550 712 - Objective General Appearance: positive: No acute distress, Lethargic Eyes Bilateral: positive: Conjunctivae nml, Other (Pupils equal round. Patient did not track with eyes tot he left side.) Respiratory: positive: No respiratory distress Cardiovascular: positive: Regular rate & rhythm, No murmur, No gallop Abdomen: positive: No distention, Tenderness (tenderness to palpation of LLQ with deep palpation). 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, left shoulder, left elbow, left ankle dorsiflexion), Slurred/abnml speech, Depressed mood/affect (very flat affect) - Lab Results Fish Bones: 05/27/19 05:28 05/27/19 05:28 Other Labs: Lab Results x24hrs 05/27/19 05/27/19 Range/Units 05:28 05:28 WBC 8.7 (4.8-10.8) x10^3/uL RBC 5.19 (4.70-6.10) 10^6/uL Hgb 15.2 (14.0-18.0) g/dL Hct 46.7 (42.0-52.0) % MCV 90.0 (80.0-94.0) fL MCH 29.3 (27.0-31.0) pg MCHC 32.5 (32.0-36.0) g/dL RDW 15.3 H (12.0-15.0) % Plt Count 219 (130-450) 10^3/uL MPV 12.0 H (7.4-11.4) fL Neut # (Auto) 7.2 H (1.5-6.6) 10^3/uL Lymph # (Auto) 0.8 L (1.5-3.5) 10^3/uL [place] # (Auto) 0.6 (0.0-1.0) 10^3/uL Eos # (Auto) 0.1 (0.0-0.7) 10^3/uL Baso # (Auto) 0.0 (0.0-0.1) 10^3/uL Absolute Nucleated RBC 0.00 x10^3/uL Nucleated RBC % 0.0 /100WBC Sodium 140 (135-145) mmol/L Potassium 3.6 (3.5-5.0) mmol/L Chloride 110 (101-111) mmol/L Carbon Dioxide 23 (21-32) mmol/L Anion Gap 7.0 (6-13) BUN 33 H (6-20) mg/dL Creatinine 2.0 H (0.6-1.2) mg/dL Estimated GFR (MDRD) 33 L (>89) Glucose 111 H (70-100) mg/dL Calcium 9.0 (8.5-10.3) mg/dL Phosphorus 3.1 (2.5-4.6) mg/dL Magnesium 2.4 (1.7-2.8) mg/dL - Diagnostic Imaging Diagnostic Imaging Comments: Portable KUB - negative ABX Reporting Has patient been on IV antibiotics over the past 48 hours?: No Assessment/Plan - Problem List (1) Cerebrovascular accident (CVA) Impression: Left hemiparesis due to right frontal lobe CVA: stable - Unclear if thrombotic or embolic. 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 - Rads: MRI of brain today - if infarct is stable in size then consider start anticoagulation in 5-7 days; if enlarging then delay anticoagulation for 10-14 days. Consider switching to a DOAC to improve compliance. - Treatment: Continue physical therapy, occupational therapy, speech therapy - Medication: continue aspirin and statin therapy. -- Consider starting SSRI - fluoxetine 20mg daily with outpatient titration weekly. Qualifiers: CVA mechanism: thrombosis Laterality of affected vessel: right (2) Atrial fibrillation with rapid ventricular response Impression: persistent atrial fibrillation: CHADsVasc2 4pt. Rate controlled with carvedilol. - Stroke Prevention: currently aspirin and statin. Pending MRI result to determine when to initiate anticoagulation. I recommend switching to the DOAC to improve compliance. (3) Acute myocardial ischemia Impression: 69 yo M found to have an elevated troponin in the setting of A.fib with RVR concerning for NSTEMI due to demand. TTE from 12APR with mild concentric left ventricular hypertrophy; overall left ventricular systolic function severely impaired with ejection fraction of 25-30%. No atrial shunt. - Patient is currently asymptomatic and rate controlled. (4) Left ventricular dysfunction with reduced left ventricular function Impression: Left venticular dysfunction found to have EF 25-30% on admission: - Euvolemic on exam. Not in acute decompensated heart failure. - Continue neurohoromonal blockade - carvedilol, lisinopril. - As an outpatient recomend repeat TTE in 3-6 months. (5) Abdominal pain Impression: Left Lower Abdominal pain without signs of peritonitis: - Differential diagnoses include but are not limited to: symptomatic constipation, MSK abdominal pain, medication side effect, referred pain due to significant change in mobility. - Rads: Portable KUB - personal read normal bowel gas pattern no gas at rectal area. - Treatment: Fleets saline Enema X1 (6) Constipation Impression: Constipation: - Continue nurse driven bowel movement protocol - Fleets saline enema X1. (7) Hypertension Impression: Continue current medications. Does not need permissive hypertension anymore. Qualifiers: Hypertension type: essential hypertension Qualified Code(s): I10 - Essential (primary) hypertension (8) Chronic kidney disease, stage III (moderate) Impression: Continue to monitor renal function with daily BMPs.
[2019-05-27] MEDS ORDERED: SALINE ENEMA 133 ML BOTTLE RC SCH (13:00)
--- NOTE | 2019-05-27 16:59 | MRI Report ---
Reason: Neuro deficit. Stroke. Procedure Date: 05/27/2019 Accession Number: [id number] / [id number] Procedure: MRI - Brain W/O CPT Code: Addended Final Report FULL RESULT: EXAM: MRI BRAIN WITHOUT CONTRAST EXAM DATE: 05/27/2019 04:12 PM. CLINICAL HISTORY: Neuro deficit. Stroke. Left-sided weakness. Prior stroke 10 years ago. COMPARISON: HEAD W/O STROKE PROTOCOL 05/25/2019 5:46 PM. TECHNIQUE: Multiplanar, multisequence T1-weighted and fluid-sensitive MR sequences of the brain were performed. Sequences optimized for routine evaluation. Other: None. IV Contrast: None. FINDINGS: (Study is somewhat limited by motion artifact.) Brain Volume: Age-related volume loss is present. Parenchyma/Dura: Patchy acute infarct is seen in right anterior choroidal artery distribution. This involves the amygdala at the level of the uncus, genu and posterior limb of the internal capsule, and posterior body of the caudate nucleus. Associated decreased T1 with increased T2/FLAIR signal is present. No associated hemorrhage. Scattered cystic foci are seen in the basal ganglia and thalami bilaterally. Patchy involvement of the ramirez radiata is seen. Moderate patchy periventricular and deep white matter T2/FLAIR bright signal is seen. Wedge-shaped focus of encephalomalacia and hypointense magnetic susceptibility consistent with hemosiderin staining is seen anterolaterally in the right frontal lobe. Smaller foci of cortical based encephalomalacia are seen laterally in the right frontal lobe and operculum as well as anterior left parietal lobe. Ventricles/Cisterns: No hydrocephalus. No abnormal extra-axial fluid collection or hemorrhage. Orbits: Symmetric and unremarkable. Sella [place]: The pituitary gland, cavernous sinuses, suprasellar cistern and optic chiasm are unremarkable. IAC: Symmetric and unremarkable. Vasculature: Abnormal increased T2 and FLAIR signal are seen involving the visualized distal cervical and intracranial right ICA. Normal signal flow void is seen in right MCA and RANDY. Normal signal flow void is seen in left carotid and vertebrobasilar systems. The left vertebral artery is dominant. Sinuses: No acute appearing sinus disease. Bones: No focal pathologic appearing marrow signal changes. Other: The visualized nasopharynx and infratemporal fossa are unremarkable. IMPRESSION: 1. Acute infarct in right anterior choroidal artery vascular territory. This involves the amygdala, genu and posterior limb of the internal capsule, and posterior body of the caudate nucleus. 2. Abnormal increased T2/FLAIR signal involving visualized right ICA. This could be secondary to slow flow or occlusion. Age is indeterminate. 3. Scattered cystic foci in the deep nuclear region bilaterally. Moderate patchy T2/FLAIR bright white matter signal is seen. Cortical based areas of encephalomalacia are seen laterally in the cerebral hemispheres bilaterally. Findings are consistent with sequela of old ischemia. RADIA The call report notification system was initiated by Dr. Paul Casanova at 04:48 PM on 05/27/2019. ADDENDUM: 05/27/19 17:35 The above call report findings were discussed with Yarelis Benavidez by Dr. Paul Casanova at 05:35 PM on 05/27/2019.
[2019-05-27] MEDS: MIN OIL/DIMETHICON/COCONUT OIL 92 GM TUBE TOP PRN (19:02)
[2019-05-27] MEDS: ATORVASTATIN 40 MG TABLET PO SCH (20:47)
[2019-05-28] MEDS: SODIUM CHLORIDE FLUSH 0.9% 10 ML SYRINGE IVP SCH ×3 (00:02→19:19)
[2019-05-28 04:38] LABS: BASOPHILS % (AUTO) 0.3 %; EOSINOPHILS % (AUTO) 0.2 %; HGB - HEMOGLOBIN 15.1 g/dL (14.0-18.0); LYMPHOCYTES # (AUTO) 0.7 10^3/uL (1.5-3.5); LYMPHOCYTES % (AUTO) 5.2 %; MEAN CORPUSCULAR VOLUME 90.8 fL (80.0-94.0); MEAN PLATELET VOLUME 11.6 fL (7.4-11.4); MONOCYTES # (AUTO) 1.1 10^3/uL (0.0-1.0); MONOCYTES % (AUTO) 8.1 %; NEUTROPHILS # (AUTO) 11.3 10^3/uL (1.5-6.6); NEUTROPHILS % (AUTO) 85.4 %; PLT - PLATELET COUNT 192 10^3/uL (130-450); RED CELL DISTRIBUTION WIDTH 15.4 % (12.0-15.0); WHITE BLOOD COUNT 13.2 x10^3/uL (4.8-10.8)
[2019-05-28 04:45] LABS: CALCIUM 8.7 mg/dL (8.5-10.3); MAGNESIUM 2.4 mg/dL (1.7-2.8); PHOSPHORUS 3.5 mg/dL (2.5-4.6)
[2019-05-28] MEDS: LEVOTHYROXINE 100 MCG TABLET PO SCH (06:47)
[2019-05-28] MEDS: DOCUSATE SODIUM 250 MG CAPSULE PO SCH (09:22)
[2019-05-28] MEDS: polyethylene glycoL 3350 17 GM PACKET PO SCH (09:22)
[2019-05-28] MEDS: TAMSULOSIN 0.4 MG CAPSULE PO SCH (09:45)
[2019-05-28] MEDS: SENNA 8.6 MG TABLET PO SCH (09:45)
[2019-05-28] MEDS: ASPIRIN CHEW 81 MG TABLET PO SCH (09:45)
[2019-05-28] MEDS: lisinopriL 20 MG TABLET PO SCH (09:45)
[2019-05-28] MEDS: carvediloL 12.5 MG TABLET PO SCH ×2 (09:45→19:19)
[2019-05-28] MEDS: HEPARIN 5,000 UNIT/ML VIAL SUBQ SCH ×2 (09:49→20:57)
--- NOTE | 2019-05-28 10:18 | PROVIDER PROGRESS NOTE ---
Subjective - Prog Note Date Prog Note Date: 05/28/19 Prog Note Time: 10:16 - Subjective Pt reports feeling: No change Subjective: Patient is s/p CVA with left hemiplegia and is more somnolent per nursing. He is unable to give much history. He is eating pureed diet, but per HYDROGEOLOGY PROFESSOR report, pt is holding food in his mouth, no choking. He has a leukocytosis this morning on bloodwork but remains afebrile. He is waiting placement for rehabilitation facility, [facility] and are considering him, but require negative COVID testing for him to be placed. Per nursing, pt did have 2 solid BM's last night. He is urinating without any issue. Objective - Vital Signs/Intake & Output Vital Signs: Vital Signs x48h Temp Pulse Pulse Resp BP Pulse Ox 05/28/19 07:53 36.4 C L 99 22 147/110 H 98 05/28/19 05:00 36.3 C L 79 18 139/104 H 95 Intake & Output: Intake & Output 05/25/19 05/26/19 05/27/19 05/28/19 23:59 23:59 23:59 23:59 Intake Total 600 1550 772 0 Balance 600 1550 772 0 - Objective General Appearance: positive: No acute distress, Lethargic Eyes Bilateral: positive: Other (PT was sleeping) Neck: positive: Nml inspection Respiratory: positive: No respiratory distress Cardiovascular: positive: Irregularly irregular Abdomen: positive: Non-tender, Nml bowel sounds Neurologic/Psychiatric: positive: Weakness, Facial droop, Slurred/abnml speech - Lab Results Fish Bones: 05/28/19 04:20 05/28/19 04:20 Other Labs: Lab Results x24hrs 05/28/19 05/28/19 05/28/19 Range/Units 07:37 04:20 04:20 WBC 13.2 H (4.8-10.8) x10^3/uL RBC 5.20 (4.70-6.10) 10^6/uL Hgb 15.1 (14.0-18.0) g/dL Hct 47.2 (42.0-52.0) % MCV 90.8 (80.0-94.0) fL MCH 29.0 (27.0-31.0) pg MCHC 32.0 (32.0-36.0) g/dL RDW 15.4 H (12.0-15.0) % Plt Count 192 (130-450) 10^3/uL MPV 11.6 H (7.4-11.4) fL Neut # (Auto) 11.3 H (1.5-6.6) 10^3/uL Lymph # (Auto) 0.7 L (1.5-3.5) 10^3/uL [place] # (Auto) 1.1 H (0.0-1.0) 10^3/uL Eos # (Auto) 0.0 (0.0-0.7) 10^3/uL Baso # (Auto) 0.0 (0.0-0.1) 10^3/uL Absolute Nucleated RBC 0.00 x10^3/uL Nucleated RBC % 0.0 /100WBC Sodium 141 (135-145) mmol/L Potassium 3.5 (3.5-5.0) mmol/L Chloride 108 (101-111) mmol/L Carbon Dioxide 24 (21-32) mmol/L Anion Gap 9.0 (6-13) BUN 35 H (6-20) mg/dL Creatinine 2.0 H (0.6-1.2) mg/dL Estimated GFR (MDRD) 33 L (>89) Glucose 117 H (70-100) mg/dL POC Whole Bld Glucose 99 (70 - 100) mg/dL Calcium 8.7 (8.5-10.3) mg/dL Phosphorus 3.5 (2.5-4.6) mg/dL Magnesium 2.4 (1.7-2.8) mg/dL 05/27/19 05/27/19 05/27/19 Range/Units 20:34 16:33 11:01 WBC (4.8-10.8) x10^3/uL RBC (4.70-6.10) 10^6/uL Hgb (14.0-18.0) g/dL Hct (42.0-52.0) % MCV (80.0-94.0) fL MCH (27.0-31.0) pg MCHC (32.0-36.0) g/dL RDW (12.0-15.0) % Plt Count (130-450) 10^3/uL MPV (7.4-11.4) fL Neut # (Auto) (1.5-6.6) 10^3/uL Lymph # (Auto) (1.5-3.5) 10^3/uL [place] # (Auto) (0.0-1.0) 10^3/uL Eos # (Auto) (0.0-0.7) 10^3/uL Baso # (Auto) (0.0-0.1) 10^3/uL Absolute Nucleated RBC x10^3/uL Nucleated RBC % /100WBC Sodium (135-145) mmol/L Potassium (3.5-5.0) mmol/L Chloride (101-111) mmol/L Carbon Dioxide (21-32) mmol/L Anion Gap (6-13) BUN (6-20) mg/dL Creatinine (0.6-1.2) mg/dL Estimated GFR (MDRD) (>89) Glucose (70-100) mg/dL POC Whole Bld Glucose 115 H 121 H 118 H (70 - 100) mg/dL Calcium (8.5-10.3) mg/dL Phosphorus (2.5-4.6) mg/dL Magnesium (1.7-2.8) mg/dL 05/27/19 05/26/19 05/26/19 Range/Units 07:35 20:32 16:39 WBC (4.8-10.8) x10^3/uL RBC (4.70-6.10) 10^6/uL Hgb (14.0-18.0) g/dL Hct (42.0-52.0) % MCV (80.0-94.0) fL MCH (27.0-31.0) pg MCHC (32.0-36.0) g/dL RDW (12.0-15.0) % Plt Count (130-450) 10^3/uL MPV (7.4-11.4) fL Neut # (Auto) (1.5-6.6) 10^3/uL Lymph # (Auto) (1.5-3.5) 10^3/uL [place] # (Auto) (0.0-1.0) 10^3/uL Eos # (Auto) (0.0-0.7) 10^3/uL Baso # (Auto) (0.0-0.1) 10^3/uL Absolute Nucleated RBC x10^3/uL Nucleated RBC % /100WBC Sodium (135-145) mmol/L Potassium (3.5-5.0) mmol/L Chloride (101-111) mmol/L Carbon Dioxide (21-32) mmol/L Anion Gap (6-13) BUN (6-20) mg/dL Creatinine (0.6-1.2) mg/dL Estimated GFR (MDRD) (>89) Glucose (70-100) mg/dL POC Whole Bld Glucose 98 97 86 (70 - 100) mg/dL Calcium (8.5-10.3) mg/dL Phosphorus (2.5-4.6) mg/dL Magnesium (1.7-2.8) mg/dL 05/26/19 05/26/19 05/26/19 Range/Units 11:50 07:03 01:11 WBC (4.8-10.8) x10^3/uL RBC (4.70-6.10) 10^6/uL Hgb (14.0-18.0) g/dL Hct (42.0-52.0) % MCV (80.0-94.0) fL MCH (27.0-31.0) pg MCHC (32.0-36.0) g/dL RDW (12.0-15.0) % Plt Count (130-450) 10^3/uL MPV (7.4-11.4) fL Neut # (Auto) (1.5-6.6) 10^3/uL Lymph # (Auto) (1.5-3.5) 10^3/uL [place] # (Auto) (0.0-1.0) 10^3/uL Eos # (Auto) (0.0-0.7) 10^3/uL Baso # (Auto) (0.0-0.1) 10^3/uL Absolute Nucleated RBC x10^3/uL Nucleated RBC % /100WBC Sodium (135-145) mmol/L Potassium (3.5-5.0) mmol/L Chloride (101-111) mmol/L Carbon Dioxide (21-32) mmol/L Anion Gap (6-13) BUN (6-20) mg/dL Creatinine (0.6-1.2) mg/dL Estimated GFR (MDRD) (>89) Glucose (70-100) mg/dL POC Whole Bld Glucose 114 H 87 106 H (70 - 100) mg/dL Calcium (8.5-10.3) mg/dL Phosphorus (2.5-4.6) mg/dL Magnesium (1.7-2.8) mg/dL 05/25/19 05/25/19 05/25/19 Range/Units 21:23 21:21 21:00 WBC (4.8-10.8) x10^3/uL RBC (4.70-6.10) 10^6/uL Hgb (14.0-18.0) g/dL Hct (42.0-52.0) % MCV (80.0-94.0) fL MCH (27.0-31.0) pg MCHC (32.0-36.0) g/dL RDW (12.0-15.0) % Plt Count (130-450) 10^3/uL MPV (7.4-11.4) fL Neut # (Auto) (1.5-6.6) 10^3/uL Lymph # (Auto) (1.5-3.5) 10^3/uL [place] # (Auto) (0.0-1.0) 10^3/uL Eos # (Auto) (0.0-0.7) 10^3/uL Baso # (Auto) (0.0-0.1) 10^3/uL Absolute Nucleated RBC x10^3/uL Nucleated RBC % /100WBC Sodium (135-145) mmol/L Potassium (3.5-5.0) mmol/L Chloride (101-111) mmol/L Carbon Dioxide (21-32) mmol/L Anion Gap (6-13) BUN (6-20) mg/dL Creatinine (0.6-1.2) mg/dL Estimated GFR (MDRD) (>89) Glucose (70-100) mg/dL POC Whole Bld Glucose 84 58 L* 65 L (70 - 100) mg/dL Calcium (8.5-10.3) mg/dL Phosphorus (2.5-4.6) mg/dL Magnesium (1.7-2.8) mg/dL - Diagnostic Imaging Diagnostic Imaging Results: positive: Final report reviewed ABX Reporting Has patient been on IV antibiotics over the past 48 hours?: No Assessment/Plan - Problem List (1) Leukocytosis Impression: Will get CXR to r/o PNA, he is afebrile, but want to r/o any aspiration PNA with holding food while eating Pt will also need COVID test negative in order for rehab placement (2) Cerebrovascular accident (CVA) Impression: REviewed MRI results. He is on aspirin 325 mg, high dose statin. He has complete occlusion of right carotid artery. There was no progression on MRI noted, so could start eliquis or xarelto in 5-7 days or near discharge. No hemorrhagic findings. PT was also non-compliant with coumadin in the past. Qualifiers: CVA mechanism: thrombosis Laterality of affected vessel: right (3) Acute myocardial ischemia Impression: REviewed pts echo, he appears asymptomatic. Medical management to continue (4) Hypertension Impression: Given his lower systolic EF, his BP is not well controlled, will start low dose spironolactone for BP control as well. Monitor potassium. Qualifiers: Hypertension type: essential hypertension Qualified Code(s): I10 - Essential (primary) hypertension (5) Chronic kidney disease, stage III (moderate) Impression: This has been stable. Due to HTN. (6) Left ventricular dysfunction with reduced left ventricular function Impression: Given his Bp is slightly higher, will start low dose of spironolactone and monitor BP as well. Pts weight appears stable, euvolemic on exam. (7) Constipation Impression: Nursing reports pt had 2 BM's. He remains on bowel protocol and abdominal pain seems to have resolved with BM's. (8) Atrial fibrillation with rapid ventricular response Impression: Patient is rate controlled on carvedilol now.
--- NOTE | 2019-05-28 10:32 | XRAY Report ---
Reason: leukocytosis, CVA Procedure Date: 05/28/2019 Accession Number: [id number] / [id number] Procedure: XR - Chest 1 View X-Ray CPT Code: 44173 Final Report FULL RESULT: EXAM: CHEST RADIOGRAPHY EXAM DATE: 05/28/2019 10:24 AM. CLINICAL HISTORY: Leukocytosis, CVA. COMPARISON: CHEST 2 VIEW PA/LAT 01/17/2015 8:35 AM ABDOMEN 1 VIEW 05/27/2019 8:37 AM BRAIN W/O 05/27/2019 3:16 PM. TECHNIQUE: 1 view. FINDINGS: Lungs/Pleura: Lung volumes are within normal limits. The medial lung apices were not imaged. There is mild increased opacity within the right lung base. No evidence of pleural effusion. No pneumothorax. Mediastinum: There is cardiomegaly. There is a right infrahilar calcified lymph node. Other: None. IMPRESSION: 1. There is cardiomegaly. 2. There is increased opacity within the right lung base. Differential considerations include infiltrate or artifact secondary to overlapping structures. 3. No evidence of large effusion. 4. Visualized lungs demonstrate no pneumothorax. [facility]
[2019-05-28] MEDS ORDERED: SPIRONOLACTONE 25 MG TABLET PO SCH (11:00)
[2019-05-28] MEDS: DEXTROSE 5%-0.45% NACL 1,000 ML IV SCH (12:56)
[2019-05-28] MEDS: SODIUM CHLORIDE FLUSH 0.9% 10 ML SYRINGE IVP PRN (12:57)
[2019-05-28] MEDS ORDERED: levoFLOXacin 750 MG/150 ML 750 MG/150 ML BAG IV SCH (13:00)
--- NOTE | 2019-05-28 15:49 | CT Report ---
Reason: ALTERED, CONCERN FOR CVA Procedure Date: 05/28/2019 Accession Number: [id number] / [id number] Procedure: CT - HEAD WO CPT Code: Final Report FULL RESULT: EXAM: CT HEAD EXAM DATE: 05/28/2019 02:14 PM. CLINICAL HISTORY: ALTERED, CONCERN FOR CVA. COMPARISON: HEAD W/O STROKE PROTOCOL 05/25/2019 5:46 PM BRAIN W/O 05/27/2019 3:16 PM. TECHNIQUE: Multiaxial CT images were obtained from the foramen magnum to the vertex. Reformats: Sagittal and coronal. IV contrast: None. In accordance with CT protocol optimization, one or more of the following dose reduction techniques were utilized for this exam: automated exposure control, adjustment of mA and/or KV based on patient size, or use of iterative reconstructive technique. FINDINGS: Parenchyma: No intraparenchymal hemorrhage. No evidence of mass, midline shift, or CT findings of an acute territorial infarct. The small infarcts in the medial right temporal lobe and right basal ganglia are similar in appearance to the prior CT and better delineated on prior MR. Multiple old lacunar infarcts are similar in appearance. Old right frontal lobe infarct is unchanged. Garcia-white differentiation is otherwise distinct. Extraaxial Spaces: Mild volume loss. No subdural or epidural hemorrhage. Ventricles: Stable in size and position. Sinuses and Orbits: Imaged paranasal sinuses, orbits, and mastoids show no significant abnormality. Bones: No evidence of fracture or calvarial defect. Other: None. IMPRESSION: No significant change. No acute hemorrhage. RADIA
[2019-05-28] MEDS: ATORVASTATIN 40 MG TABLET PO SCH (19:19)
[2019-05-29] MEDS: DEXTROSE 5%-0.45% NACL 1,000 ML IV SCH ×2 (01:14→12:45)
[2019-05-29] MEDS: SODIUM CHLORIDE FLUSH 0.9% 10 ML SYRINGE IVP SCH ×3 (01:26→16:29)
[2019-05-29 04:59] LABS: BASOPHILS % (AUTO) 0.2 %; EOSINOPHILS % (AUTO) 0.1 %; HGB - HEMOGLOBIN 14.4 g/dL (14.0-18.0); LYMPHOCYTES # (AUTO) 0.8 10^3/uL (1.5-3.5); LYMPHOCYTES % (AUTO) 5.9 %; MEAN CORPUSCULAR HEMOGLOBIN 28.9 pg (27.0-31.0); MEAN CORPUSCULAR HGB CONC 31.8 g/dL (32.0-36.0); MEAN PLATELET VOLUME 12.5 fL (7.4-11.4); MONOCYTES # (AUTO) 1.1 10^3/uL (0.0-1.0); NEUTROPHILS # (AUTO) 11.9 10^3/uL (1.5-6.6); NEUTROPHILS % (AUTO) 85.2 %; PLT - PLATELET COUNT 178 10^3/uL (130-450); RED BLOOD COUNT 4.98 10^6/uL (4.70-6.10); RED CELL DISTRIBUTION WIDTH 15.7 % (12.0-15.0)
[2019-05-29 05:05] LABS: CALCIUM 7.9 mg/dL (8.5-10.3); CREATININE 2.2 mg/dL (0.6-1.2)
[2019-05-29] MEDS: POTASSIUM CHLOR 10 MEQ/100 ML 10 MEQ/100 ML BAG IV SCH ×3 (08:41→11:03)
[2019-05-29 08:43] LABS: INR 1.5 (0.8-1.2); PT - PROTHROMBIN TIME 16.4 secs (9.9-12.6)
[2019-05-29] MEDS ORDERED: ASPIRIN 300 MG SUPP PR SCH (09:00)
[2019-05-29] MEDS ORDERED: levoFLOXacin 750 MG/150 ML 750 MG/150 ML BAG IV SCH (09:00)
[2019-05-29] MEDS ORDERED: WARFARIN 5 MG TABLET PO SCH (09:00)
[2019-05-29] MEDS ORDERED: METOPROLOL 5 MG/5 ML VIAL IVP ONE (09:00)
[2019-05-29] MEDS: HEPARIN 5,000 UNIT/ML VIAL SUBQ SCH ×2 (11:05→20:42)
--- NOTE | 2019-05-29 11:23 | PROVIDER PROGRESS NOTE ---
Subjective - Prog Note Date Prog Note Date: 05/29/19 - Subjective Pt reports feeling: Worse Subjective: pt is alert but some confused today. pt denies fever, chill, chest pain. I called pt's person, to be notified in [facility], Ivelisse Parker, pt's caregiver, and she came to hospital to visit pt. I also consulted with Palliative care provider Cleo Zarate. As Ms. Parker report, pt has poor family support. hopefully we will figure out the best option for pt's care. 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 overall, his prognosis is poor. Current Medications - Current Medications Current Medications: Active Medications Acetaminophen (Tylenol) 650 mg PO Q4HR PRN PRN Reason: Pain 1 to 4 Last Admin: 05/28/19 10:32 Dose: 650 mg Aspirin () [address] DAILY [facility] Atorvastatin Calcium (Lipitor) 80 mg PO QPM [facility] Last Admin: 05/28/19 19:19 Dose: Not Given Docusate Sodium (Colace 250mg Capsule) 250 - 500 mg PO DAILY [facility] Last Admin: 05/28/19 09:22 Dose: Not Given Heparin Sodium (Porcine) () 5,000 unit SUBQ BID [facility] Last Admin: 05/29/19 11:05 Dose: 5,000 unit Hydralazine HCl (Apresoline Inj) 10 mg IVP QID PRN PRN Reason: Hypertensive Emergency Levofloxacin (Levaquin 750 Mg/150 Ml) 750 mg in 150 mls @ 100 mls/hr IV Q48H [facility] Last Infusion: 05/28/19 15:57 Dose: Infused Dextrose/Sodium Chloride (D5.45ns) 1,000 mls @ 83.333 mls/hr IV .Q12H [facility] Last Admin: 05/29/19 01:14 Dose: 83.333 mls/hr Levothyroxine Sodium (Synthroid) 100 mcg PO QDAC [facility] Last Admin: 05/28/19 06:47 Dose: Not Given Lisinopril (Zestril) 20 mg PO DAILY [facility] Last Admin: 05/28/19 09:45 Dose: 20 mg Metoprolol Tartrate (Lopressor Inj) 5 mg IVP Q6HR [facility] Mineral Oil (Cavilon) 1 applic TOP PRN PRN PRN Reason: Skin Care Last Admin: 05/27/19 19:02 Dose: 1 applic Polyethylene Glycol (Miralax) 17 gm PO DAILY [facility] Last Admin: 05/28/19 09:22 Dose: Not Given Senna (Senokot) 8.6 - 17.2 mg PO DAILY [facility] Last Admin: 05/28/19 09:45 Dose: 17.2 mg Sodium Chloride (Normal Saline Flush 0.9%) 10 ml IVP PRN PRN PRN Reason: NEEDED PER PROVIDER ORDERS Last Admin: 05/28/19 12:57 Dose: 10 ml Sodium Chloride (Normal Saline Flush 0.9%) 10 ml IVP 0100,0900,1700 [facility] Last Admin: 05/29/19 01:26 Dose: 10 ml Tamsulosin HCl (Flomax) 0.4 mg PO DAILY [facility] Last Admin: 05/28/19 09:45 Dose: 0.4 mg Warfarin Sodium (Coumadin) 5 mg PO DAILY [facility] Amlodipine Besylate 10 mg PO DAILY 01/18/15 lisinopriL [Lisinopril] 20 mg PO DAILY 01/18/15 Carvedilol 12.5 mg PO DAILY 05/25/19 Furosemide 40 mg PO DAILY 05/25/19 Levothyroxine [Synthroid] 100 mcg PO DAILY 05/25/19 Warfarin Sodium 5 mg PO DAILY 05/25/19 amLODIPine [Norvasc] 10 mg PO DAILY 05/25/19 Objective - Vital Signs/Intake & Output Vital Signs: Vital Signs x48h Pulse Resp BP BP Pulse Ox 05/29/19 09:17 84 152/96 H 05/29/19 09:02 78 157/93 H 05/29/19 08:47 77 138/81 H 05/29/19 08:30 94 147/93 H 05/29/19 08:25 84 169/62 H 05/29/19 08:20 92 167/99 H 05/29/19 08:16 149/104 H 05/29/19 07:33 89 20 128/94 H 97 Intake & Output: Intake & Output 05/26/19 05/27/19 05/28/19 05/29/19 23:59 23:59 23:59 23:59 Intake Total 1550 772 046.029 6397 Output Total 50 Balance 1550 772 635.315 9394 - Objective General Appearance: positive: Alert, Mild distress. negative: Lethargic Eyes Bilateral: positive: Normal inspection, PERRL, No lid inflammation ENT: positive: ENT inspection nml, Pharynx nml, No signs of dehydration. negative: Purulent nasal drainage Neck: positive: Nml inspection, Thyroid nml, Trachea midline. negative: Thyromegaly, Stiff neck, Kernig's sign Respiratory: positive: Chest non-tender, No respiratory distress. negative: Breath sounds nml, Wheezes, Rales, Rhonchi Cardiovascular: positive: No murmur, No gallop, Irregularly irregular. negative: Extrasystoles, Tachycardia, Bradycardia, Systolic murmur, Diastolic murmur Peripheral Pulses: 2+ Radial (R), 2+ Radial (L) Abdomen: positive: Non-tender, No organomegaly, Nml bowel sounds, No distention. negative: Tenderness, Guarding, Rebound Back: positive: Nml inspection. negative: CVA tenderness (R), CVA tenderness (L) Skin: positive: Color nml, No rash, Warm, Dry. negative: Cyanosis, Diaphoresis, Pallor Extremities: positive: Non-tender, Nml appearance. negative: Calf tenderness Neurologic/Psychiatric: positive: Weakness, Sensory loss, Slurred/abnml speech. negative: Facial droop - Lab Results Fish Bones: 05/29/19 04:15 05/29/19 04:15 Other Labs: Lab Results x24hrs 05/29/19 05/29/19 05/29/19 Range/Units 11:13 08:20 07:26 WBC (4.8-10.8) x10^3/uL RBC (4.70-6.10) 10^6/uL Hgb (14.0-18.0) g/dL Hct (42.0-52.0) % MCV (80.0-94.0) fL MCH (27.0-31.0) pg MCHC (32.0-36.0) g/dL RDW (12.0-15.0) % Plt Count (130-450) 10^3/uL MPV (7.4-11.4) fL Neut # (Auto) (1.5-6.6) 10^3/uL Lymph # (Auto) (1.5-3.5) 10^3/uL Vance # (Auto) (0.0-1.0) 10^3/uL Eos # (Auto) (0.0-0.7) 10^3/uL Baso # (Auto) (0.0-0.1) 10^3/uL Absolute Nucleated RBC x10^3/uL Nucleated RBC % /100WBC PT 16.4 H (9.9-12.6) secs INR 1.5 H (0.8-1.2) Sodium (135-145) mmol/L Potassium (3.5-5.0) mmol/L Chloride (101-111) mmol/L Carbon Dioxide (21-32) mmol/L Anion Gap (6-13) BUN (6-20) mg/dL Creatinine (0.6-1.2) mg/dL Estimated GFR (MDRD) (>89) Glucose (70-100) mg/dL POC Whole Bld Glucose 86 88 (70 - 100) mg/dL Calcium (8.5-10.3) mg/dL Coronavirus (PCR) 05/29/19 05/29/19 05/28/19 Range/Units 04:15 04:15 16:23 WBC 14.0 H (4.8-10.8) x10^3/uL RBC 4.98 (4.70-6.10) 10^6/uL Hgb 14.4 (14.0-18.0) g/dL Hct 45.3 (42.0-52.0) % MCV 91.0 (80.0-94.0) fL MCH 28.9 (27.0-31.0) pg MCHC 31.8 L (32.0-36.0) g/dL RDW 15.7 H (12.0-15.0) % Plt Count 178 (130-450) 10^3/uL MPV 12.5 H (7.4-11.4) fL Neut # (Auto) 11.9 H (1.5-6.6) 10^3/uL Lymph # (Auto) 0.8 L (1.5-3.5) 10^3/uL Vance # (Auto) 1.1 H (0.0-1.0) 10^3/uL Eos # (Auto) 0.0 (0.0-0.7) 10^3/uL Baso # (Auto) 0.0 (0.0-0.1) 10^3/uL Absolute Nucleated RBC 0.00 x10^3/uL Nucleated RBC % 0.0 /100WBC PT (9.9-12.6) secs INR (0.8-1.2) Sodium 141 (135-145) mmol/L Potassium 3.2 L (3.5-5.0) mmol/L Chloride 111 (101-111) mmol/L Carbon Dioxide 23 (21-32) mmol/L Anion Gap 7.0 (6-13) BUN 37 H (6-20) mg/dL Creatinine 2.2 H (0.6-1.2) mg/dL Estimated GFR (MDRD) 30 L (>89) Glucose 101 H (70-100) mg/dL POC Whole Bld Glucose 109 H (70 - 100) mg/dL Calcium 7.9 L (8.5-10.3) mg/dL Coronavirus (PCR) 05/28/19 05/28/19 Range/Units 12:22 10:26 WBC (4.8-10.8) x10^3/uL RBC (4.70-6.10) 10^6/uL Hgb (14.0-18.0) g/dL Hct (42.0-52.0) % MCV (80.0-94.0) fL MCH (27.0-31.0) pg MCHC (32.0-36.0) g/dL RDW (12.0-15.0) % Plt Count (130-450) 10^3/uL MPV (7.4-11.4) fL Neut # (Auto) (1.5-6.6) 10^3/uL Lymph # (Auto) (1.5-3.5) 10^3/uL Vance # (Auto) (0.0-1.0) 10^3/uL Eos # (Auto) (0.0-0.7) 10^3/uL Baso # (Auto) (0.0-0.1) 10^3/uL Absolute Nucleated RBC x10^3/uL Nucleated RBC % /100WBC PT (9.9-12.6) secs INR (0.8-1.2) Sodium (135-145) mmol/L Potassium (3.5-5.0) mmol/L Chloride (101-111) mmol/L Carbon Dioxide (21-32) mmol/L Anion Gap (6-13) BUN (6-20) mg/dL Creatinine (0.6-1.2) mg/dL Estimated GFR (MDRD) (>89) Glucose (70-100) mg/dL POC Whole Bld Glucose 107 H (70 - 100) mg/dL Calcium (8.5-10.3) mg/dL Coronavirus (PCR) NEGATIVE ABX Reporting Has patient been on IV antibiotics over the past 48 hours?: Yes Assessment/Plan - Problem List (1) Cerebrovascular accident (CVA) Impression: Left hemiparesis due to right frontal lobe CVA, Unclear if thrombotic or embolic. known atrial fibrillation with noncompliance to his Coumadin INR was 1.3 at the admission. 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 plan: Continue physical therapy, occupational therapy, speech therapy - Medication: continue aspirin and statin therapy. since infarct is stable in size as secondary CT reveals, then consider start anticoagulation in 5-7 days (2)dysphagia pt can not swallow now because of his stroke. pt had issue for dysphagia from his first stroke consult with ST NPO with IVF (3)aspiration pneumonia pt presented aspiration from his stroke and dysphagia. CXR reveals right infiltrate and elevated WBC plan: unasyn for PNA, continue IVF (4) Atrial fibrillation with rapid ventricular response Impression: stable now. Carvedilol was switched to Metoprolol IV because his dysphagia. pt had Coumadin at home, will start after pt's acute stroke is stable (5) Acute myocardial ischemia Impression: stable, Patient is currently asymptomatic and rate controlled. pt is on Aspirin, statin, and metoprolol. continue tele and vital monitor (6) Left ventricular dysfunction with reduced left ventricular function Impression: Left venticular dysfunction found to have EF 25-30% on admission, pt is on Aspirin, statin, and metoprolol, will add Lisinopril. pt is dysphagia and NPO now (7) Constipation Continue nurse driven bowel movement protocol (8) Hypertension Impression: Continue current medications. Does not need permissive hypertension anymore. add PRN of hydralazine (9) Chronic kidney disease, stage III (moderate) Impression: slight increased creatinine, start on gently IVF, daily lab and vital monitor (10)medical noncompliance pt did not take his Coumadin, pt has hx of afib and CHADsVasc2 4. it is likely reason pt had another stroke advise pt for medical compliance and discussed with pt's caregiver Ms. 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 overall, his prognosis is poor. Qualifiers: CVA mechanism: thrombosis Laterality of affected vessel: right
[2019-05-29] MEDS ORDERED: METOPROLOL 5 MG/5 ML VIAL IVP SCH ×2 (12:00→16:00)
[2019-05-29] MEDS: SODIUM CHLORIDE FLUSH 0.9% 10 ML SYRINGE IVP PRN (12:55)
[2019-05-29] MEDS: AMPICILLIN/SULBACTAM 1.5 GM in SODIUM CHLORIDE 0.9% MINIBAG 100 ML IV SCH ×2 (12:55→18:36)
[2019-05-29] MEDS: LEVOTHYROXINE 100 MCG TABLET PO SCH (13:25)
[2019-05-29] MEDS: DOCUSATE SODIUM 250 MG CAPSULE PO SCH (13:25)
[2019-05-29] MEDS: lisinopriL 20 MG TABLET PO SCH (13:29)
[2019-05-29] MEDS: SENNA 8.6 MG TABLET PO SCH (13:29)
[2019-05-29] MEDS: polyethylene glycoL 3350 17 GM PACKET PO SCH (13:29)
[2019-05-29] MEDS: TAMSULOSIN 0.4 MG CAPSULE PO SCH (13:31)
--- NOTE | 2019-05-29 15:28 | CONSULTATION NOTE ---
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 He had had a stroke 10 years previously, with some residual left-sided weakness, some difficulty with swallowing, delay in verbal response, but still was managing running a business, his own affairs, driving, and does have a known history of hypertension and atrial fibrillation. Patient does report was to be on warfarin, but when asked if he was having ongoing blood draws, he reports he had not. Ivelisse is wondering if he had not had an event prior to finding him with his acute event, as he had seem to be declining more so over the last couple weeks. She found he was not eating regularly or taking his medications. Follow-up history was provided by his friend Ivelisse, who has been helping him over the last year. 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 She reports when he first met him, he was somewhat suicidal, not doing well secondary to losing his significant other of 40 years. She about 3 years ago, and he was somewhat isolated, though still managing his business. 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 He did have a twin brother, who had 5 to 6 years ago, he has an older brother in [place] which they are trying to locate, and reports he has another brother whom has some underlying concerns for dementia/mental health issues. Patient has had a complicated few days, with low energy, sleeping a significant amount, and difficulty participating in therapy, the most recently he was diagnosed now with a infiltrate, with increased leukocytosis, and currently on antibiotics. He has "pepped up some", he is able to engage in conversation, though is slow to respond, he is answering questions appropriately. He is very much engaged with Ivelisse, talking about the business, payments, accounts, and asking follow-up questions. Patient has very poor understanding or insight into his current medical situation, we did review patient has had a series stroke, concern about most likely his left hemiparesis will have limited recovery, though he is "working his right leg" and moving his right arm during our visit. We discussed his worsening heart function, with ejection fraction 25%, as well as his new diagnosis of pneumonia. When asked what he worries about most, he reports dying too young. Palliative care meeting with patient and friend, to help assist and define goals of care as well as CODE STATUS. Medical/Surgical History - Past Medical History Cardiovascular: reports: Hypertension, Atrial fibrillation Respiratory: reports: Pneumonia Neuro: CVA Endocrine/Autoimmune: reports: HyPOthyroidism : reports: Renal insuffiency Psych: reports: Depression Musculoskeletal: reports: Osteoarthritis, Hemiplegia (lefet), Gout, Fatigue MRSA Hx?: No Other Past Medical History: Renal insufficiency. LE edema w/rubor, mid tibial area to ankles, B LE's (L>R). - Substance History Use: Uses substance without health or social issues: NONE Social History - Living Situation Living arrangement: At home Living Situation: Alone Support System: Patient has been living alone, and manages his own affairs. Most recently with the stay at home order, his friend Ivelisse has bringing meals over twice a day. She reports he was not consistently eating, but was drinking adequate fluids. He had been managing his household, business, and driving previous to his current decline. He does not have any children, there is a stepdaughter, but no one to take on caregiving. Patient has limited financial resources, and is at this point in time putting together a Medicaid application. The house who lives in, is owned by "the family". Family History - Family History Family History: Mother: , Father: , Brother: Medications/Allergies - Medications Active Medication List: Active Medications Acetaminophen (Tylenol) 650 mg PO Q4HR PRN PRN Reason: Pain 1 to 4 Last Admin: 05/28/19 10:32 Dose: 650 mg Aspirin () 300 mg NE DAILY [facility] Last Admin: 05/29/19 14:43 Dose: Not Given Atorvastatin Calcium (Lipitor) 80 mg PO QPM [facility] Last Admin: 05/28/19 19:19 Dose: Not Given Docusate Sodium (Colace 250mg Capsule) 250 - 500 mg PO DAILY [facility] Last Admin: 05/29/19 13:25 Dose: Not Given Heparin Sodium (Porcine) () 5,000 unit SUBQ BID [facility] Last Admin: 05/29/19 11:05 Dose: 5,000 unit Hydralazine HCl (Apresoline Inj) 10 mg IVP QID PRN PRN Reason: Hypertensive Emergency Dextrose/Sodium Chloride (D5.45ns) 1,000 mls @ 83.333 mls/hr IV .Q12H [facility] Last Infusion: 05/29/19 14:43 Dose: 83.333 mls/hr Ampicillin Sodium/Sulbactam (Sodium 1.5 gm/ Sodium Chloride) 100 mls @ 200 mls/hr IV Q6HR [facility] Last Infusion: 05/29/19 14:43 Dose: Infused Levothyroxine Sodium (Synthroid) 100 mcg PO QDAC [facility] Last Admin: 05/29/19 13:25 Dose: Not Given Lisinopril (Zestril) 20 mg PO DAILY [facility] Last Admin: 05/29/19 13:29 Dose: Not Given Metoprolol Tartrate (Lopressor Inj) 5 mg IVP Q6HR [facility] Mineral Oil (Cavilon) 1 applic TOP PRN PRN PRN Reason: Skin Care Last Admin: 05/27/19 19:02 Dose: 1 applic Polyethylene Glycol (Miralax) 17 gm PO DAILY [facility] Last Admin: 05/29/19 13:29 Dose: Not Given Senna (Senokot) 8.6 - 17.2 mg PO DAILY [facility] Last Admin: 05/29/19 13:29 Dose: Not Given Sodium Chloride (Normal Saline Flush 0.9%) 10 ml IVP PRN PRN PRN Reason: NEEDED PER PROVIDER ORDERS Last Admin: 05/29/19 12:55 Dose: 10 ml Sodium Chloride (Normal Saline Flush 0.9%) 10 ml IVP 0100,0900,1700 [facility] Last Admin: 05/29/19 13:31 Dose: Not Given Tamsulosin HCl (Flomax) 0.4 mg PO DAILY [facility] Last Admin: 05/29/19 13:31 Dose: Not Given Amlodipine Besylate 10 mg PO DAILY 01/18/15 lisinopriL [Lisinopril] 20 mg PO DAILY 01/18/15 Carvedilol 12.5 mg PO DAILY 05/25/19 Furosemide 40 mg PO DAILY 05/25/19 Levothyroxine [Synthroid] 100 mcg PO DAILY 05/25/19 Warfarin Sodium 5 mg PO DAILY 05/25/19 amLODIPine [Norvasc] 10 mg PO DAILY 05/25/19 - Allergies Allergies/Adverse Reactions: Allergies Allergy/AdvReac Type Severity Reaction Status Date / Time erythromycin base Allergy Unknown Verified 05/25/19 17:32 Review of Systems - Constitutional Constitutional: reports: Fatigue (has been weak and nonparticipatory), Weakness, Other (patient had been NPO; working with speech) - Eyes Eyes: reports: Vision loss, Other (difficulty focusing; did engage by end of vi sit) - Ears, Nose & Throat Ears, Nose & Throat: reports: Other (drooping left side) - Cardiovascular Cardiovascular: reports: Irregular heart rate, Edema (improved from baseline). denies: Chest pain - Gastrointestinal Gastrointestinal: reports: Constipation, Other (NPO) - Musculoskeletal Musculoskeletal: reports: Stiffness, Limited range of motion, Muscle weakness, Other (left hemiparesis; left arm limp/left leg unable to move on command; Swinging right leg during visit; right arm moved on command) - Integumentary Integumentary: reports: Dryness - Neurological Neurological: reports: General weakness, Memory problems (poor recall of) - Psychiatric Psychiatric: reports: Depression, Anxiety - Endocrine Endocrine: reports: Hypothyroidism - Hematologic/Lymphatic Hematologic/Lymphatic: reports: Recurrent infections (bacterial pneumonia) - All Other Systems All Other Systems: reports: Other (limited ROS) Physical Exam - Vital Signs Vital Signs: Vital Signs x48h Temp Pulse Resp BP BP Pulse Ox 05/29/19 12:53 36.6 C 90 20 107/80 93 05/29/19 11:36 131/89 H 05/29/19 09:17 84 152/96 H 05/29/19 09:02 78 157/93 H 05/29/19 08:47 77 138/81 H 05/29/19 08:30 94 147/93 H 05/29/19 08:25 84 169/62 H 05/29/19 08:20 92 167/99 H 05/29/19 08:16 149/104 H 05/29/19 07:33 89 20 128/94 H 97 - Physical Exam General Appearance: positive: Anxious, Other (slow to responds but not lethargic during conversation) Eyes Bilateral: positive: Other (periorbital edema; difficult staying focused- leans to the right) ENT: positive: Other (some left sided droop and drooling) Neck: positive: Other (large thickened neck) Cardiovascular: positive: Irregularly irregular Respiratory: positive: Diminished throughout (anteriorly; large habitus), Other (intermittent breathlessness noted at rest;) Skin: positive: Pallor, Dryness, Other (LE dry and scaling;) Extremities: positive: Pedal edema (trace; appear was larger early; friend said baseline is swollen) Neurologic/Psychiatric: positive: Disoriented to time, Weakness, Facial droop, Slurred/abnml speech, Depressed mood/affect, Flat affect Palliative Care - POLST Patient has POLST: No POLST Status: Full Code Pain: No pain Tiredness/Fatigue: Severe (7-10) Drowsiness/Sedation: Severe (7-10) Nausea: None Performance Status: Patient previously had been ambulatory, though friend reports was quite slow and most likely would have benefited from a cane/walker. Because patient was intentional, she is not aware of any falls. He was managing his own ADLs including driving. Today he presents with severe left hemiparesis, he is kicking his right leg around though to visit today. He is able to reposition himself in the chair, but is totally dependent on caregivers. He is quite a large man, and needs 2 person assist for any kind of transfers or bed mobility. - Palliative Care Discussion: Spent time with patient and friend Ivelisse, patient does not recall or understand why he is in the hospital. He does understand he is had a stroke, we did review concerns regarding his health, with a recent severe stroke, resulting in left- sided weakness, that he has been very sleepy, and not participating much in therapy, currently he is awaiting speech therapy for a swallow eval, she is comi ng right after our visit. Ivelisse did spend time talking about the relationship, patient had multiple questions and engaged regarding business, counts, and was worried about paying his bills. When asked patient what he fears most, it is "I am not ready to ". Discussed the seriousness of his illness, and concern regarding question of CODE STATUS. Ivelisse does not want responsibility of this. Patient in discussion regarding what is most important, would be CPR, would be being on ventilator, even if there was a poor outcome he would want us to try. Patient has recovered from his stroke in the past, and this would be consistent with sharing his values. Patient has little insight into his deficits, but is able to express his values. He very much does want to go home, we discussed in the context of his current deficits that this would not be possible. He would need to go someplace where he could be taking care of. Ivelisse encouraged him to participate in therapy, and hoping for the best. Did reapproach several times, patient was consistent in his messaging for Attempt resuscitation. Ivelisse is supportive of patient's choices, she is quite relieved that she does not want to be the one to make decisions around CODE STATUS, and very much wants to get hold of his brother in case further serious decisions are needed to be made. He is also okay with going to a longterm, and with contacting his brother in [place]. Ivelisse was getting ready to transition and take care of the busi ness, as it was recently sold to her as patient is retiring. He is obviously very engaged in fond of Ivelisse, with nice rapport. He was able to tell her where to find phone number for his brother Ryan Prince in [place], at this point in time decision making would fall to him. Ivelisse is so helping with application. In discussion further patient would like to pursue therapy, had been to therapy previously with his previous stroke. Does have some insight into what to expect. Results - Lab Results Lab results reviewed: Yes Fish Bones: 05/29/19 04:15 05/29/19 04:15 Lab and Imaging Results: Lab Results x24hrs 05/29/19 05/29/19 05/29/19 Range/Units 11:13 08:20 07:26 WBC (4.8-10.8) x10^3/uL RBC (4.70-6.10) 10^6/uL Hgb (14.0-18.0) g/dL Hct (42.0-52.0) % MCV (80.0-94.0) fL MCH (27.0-31.0) pg MCHC (32.0-36.0) g/dL RDW (12.0-15.0) % Plt Count (130-450) 10^3/uL MPV (7.4-11.4) fL Neut # (Auto) (1.5-6.6) 10^3/uL Lymph # (Auto) (1.5-3.5) 10^3/uL Labette # (Auto) (0.0-1.0) 10^3/uL Eos # (Auto) (0.0-0.7) 10^3/uL Baso # (Auto) (0.0-0.1) 10^3/uL Absolute Nucleated RBC x10^3/uL Nucleated RBC % /100WBC PT 16.4 H (9.9-12.6) secs INR 1.5 H (0.8-1.2) Sodium (135-145) mmol/L Potassium (3.5-5.0) mmol/L Chloride (101-111) mmol/L Carbon Dioxide (21-32) mmol/L Anion Gap (6-13) BUN (6-20) mg/dL Creatinine (0.6-1.2) mg/dL Estimated GFR (MDRD) (>89) Glucose (70-100) mg/dL POC Whole Bld Glucose 86 88 (70 - 100) mg/dL Calcium (8.5-10.3) mg/dL Coronavirus (PCR) 05/29/19 05/29/19 05/28/19 Range/Units 04:15 04:15 16:23 WBC 14.0 H (4.8-10.8) x10^3/uL RBC 4.98 (4.70-6.10) 10^6/uL Hgb 14.4 (14.0-18.0) g/dL Hct 45.3 (42.0-52.0) % MCV 91.0 (80.0-94.0) fL MCH 28.9 (27.0-31.0) pg MCHC 31.8 L (32.0-36.0) g/dL RDW 15.7 H (12.0-15.0) % Plt Count 178 (130-450) 10^3/uL MPV 12.5 H (7.4-11.4) fL Neut # (Auto) 11.9 H (1.5-6.6) 10^3/uL Lymph # (Auto) 0.8 L (1.5-3.5) 10^3/uL Labette # (Auto) 1.1 H (0.0-1.0) 10^3/uL Eos # (Auto) 0.0 (0.0-0.7) 10^3/uL Baso # (Auto) 0.0 (0.0-0.1) 10^3/uL Absolute Nucleated RBC 0.00 x10^3/uL Nucleated RBC % 0.0 /100WBC PT (9.9-12.6) secs INR (0.8-1.2) Sodium 141 (135-145) mmol/L Potassium 3.2 L (3.5-5.0) mmol/L Chloride 111 (101-111) mmol/L Carbon Dioxide 23 (21-32) mmol/L Anion Gap 7.0 (6-13) BUN 37 H (6-20) mg/dL Creatinine 2.2 H (0.6-1.2) mg/dL Estimated GFR (MDRD) 30 L (>89) Glucose 101 H (70-100) mg/dL POC Whole Bld Glucose 109 H (70 - 100) mg/dL Calcium 7.9 L (8.5-10.3) mg/dL Coronavirus (PCR) 05/28/19 Range/Units 10:26 WBC (4.8-10.8) x10^3/uL RBC (4.70-6.10) 10^6/uL Hgb (14.0-18.0) g/dL Hct (42.0-52.0) % MCV (80.0-94.0) fL MCH (27.0-31.0) pg MCHC (32.0-36.0) g/dL RDW (12.0-15.0) % Plt Count (130-450) 10^3/uL MPV (7.4-11.4) fL Neut # (Auto) (1.5-6.6) 10^3/uL Lymph # (Auto) (1.5-3.5) 10^3/uL Labette # (Auto) (0.0-1.0) 10^3/uL Eos # (Auto) (0.0-0.7) 10^3/uL Baso # (Auto) (0.0-0.1) 10^3/uL Absolute Nucleated RBC x10^3/uL Nucleated RBC % /100WBC PT (9.9-12.6) secs INR (0.8-1.2) Sodium (135-145) mmol/L Potassium (3.5-5.0) mmol/L Chloride (101-111) mmol/L Carbon Dioxide (21-32) mmol/L Anion Gap (6-13) BUN (6-20) mg/dL Creatinine (0.6-1.2) mg/dL Estimated GFR (MDRD) (>89) Glucose (70-100) mg/dL POC Whole Bld Glucose (70 - 100) mg/dL Calcium (8.5-10.3) mg/dL Coronavirus (PCR) NEGATIVE Impression and Recommendations - Palliative Care Impression: This is a 69-year-old gentleman who unfortunately has had acute CVA with severe left hemiparesis. He now presents most likely with aspiration pneumonia, currently receiving antibiotics with some improvement in cognitive status and a aUnfortunately patient does not have strong supportive network, his friend Ivelisse is helping him try to navigate next steps with Medicaid application. They are trying to locate his brother, as he would be by default the most appropriate DPOAE. Patient consistently both subdued and is not interested in anything less than full code and intubation, this is revisited several times. Palliative care providing support regarding goals of clarification, and facilitation family conference with Ivelisse. Recommendations/Counseling Done: 1. CVA with resulting left hemiparesis. Patient with high complexity, now presents with bacterial pneumonia, had been concern of patient's lethargy and lack of responsiveness, though still presents with some lethargy able to engage in conversation and exam. Patient with severe deficits, with dense left hemiplegia, will need maximum care and SNF/long-term care most likely. Currently in process for [facility] application for placement, patient's original stroke 10 years ago. Patient's expectations he would continue with rehab therapy, Ivelisse his friend encouraged him to engage, as there had been question regarding patient's ability and interest in participating. Patient does report he wants to go home, Ivelisse myself providing information regarding this is not possible particularly at this juncture. He did tell Ivelisse he did want to try and "get better". Given the severity of his stroke and concern for ability to eat/support his nutritional needs, will need to revisit expectations and trans ition plan. 2. Advanced care planning. Ivelisse trying to locate brother Ryan Prince in [place], was told he does have a business down there, and number at office. She is willing to provide support, does not want to make CODE STATUS decision, patient actually able to express his values and wishes for full code, intubation, and longterm placement is okay. I did not approach regarding tube feedings as the eval had not been done yet, prior to our conversation. I think it would be reasonable at this point in time to wait and see what patient's baseline status develops into, as well has identify D POA.Please see palliative care discussion. This was shared with hospitalist.Ivelisse has been given my contact information, I am more than happy to speak to the brother or provide further counseling regarding goals of care. Time Spent: 75 minutes with greater than 50% of this done in counseling regarding goals of care, eliciting patient story and history with friend, as well as coordination of care with hospitalist team
[2019-05-29] MEDS: METOPROLOL 5 MG/5 ML VIAL IVP SCH ×2 (16:25→18:37)
[2019-05-29] MEDS: ATORVASTATIN 40 MG TABLET PO SCH (20:42)
[2019-05-30] MEDS: METOPROLOL 5 MG/5 ML VIAL IVP SCH ×5 (00:54→23:58)
[2019-05-30] MEDS: AMPICILLIN/SULBACTAM 1.5 GM in SODIUM CHLORIDE 0.9% MINIBAG 100 ML IV SCH ×5 (00:54→23:57)
[2019-05-30] MEDS: DEXTROSE 5%-0.45% NACL 1,000 ML IV SCH (00:56)
[2019-05-30] MEDS: SODIUM CHLORIDE FLUSH 0.9% 10 ML SYRINGE IVP SCH ×4 (00:57→17:12)
[2019-05-30 05:25] LABS: BASOPHILS % (AUTO) 0.2 %; EOSINOPHILS # (AUTO) 0.1 10^3/uL (0.0-0.7); EOSINOPHILS % (AUTO) 0.4 %; HGB - HEMOGLOBIN 14.5 g/dL (14.0-18.0); LYMPHOCYTES # (AUTO) 0.8 10^3/uL (1.5-3.5); MEAN CORPUSCULAR HEMOGLOBIN 28.9 pg (27.0-31.0); MEAN CORPUSCULAR HGB CONC 31.8 g/dL (32.0-36.0); MEAN PLATELET VOLUME 12.9 fL (7.4-11.4); MONOCYTES % (AUTO) 8.2 %; NEUTROPHILS % (AUTO) 83.5 %; PLT - PLATELET COUNT 200 10^3/uL (130-450); RED BLOOD COUNT 5.01 10^6/uL (4.70-6.10); RED CELL DISTRIBUTION WIDTH 15.8 % (12.0-15.0)
[2019-05-30 05:28] LABS: INR 1.4 (0.8-1.2); PT - PROTHROMBIN TIME 15.5 secs (9.9-12.6)
[2019-05-30 05:32] LABS: CALCIUM 8.6 mg/dL (8.5-10.3)
[2019-05-30] MEDS: LEVOTHYROXINE 100 MCG TABLET PO SCH (06:44)
[2019-05-30] MEDS ORDERED: METOPROLOL 5 MG/5 ML VIAL IVP PRN (07:44)
[2019-05-30] MEDS ORDERED: ASPIRIN 325 MG TABLET PO SCH (08:00)
[2019-05-30] MEDS: hydrALAZINE INJ 20 MG/ML VIAL IVP PRN ×2 (08:07→19:40)
[2019-05-30] MEDS ORDERED: WARFARIN 5 MG TABLET PO SCH (09:00)
[2019-05-30] MEDS: lisinopriL 20 MG TABLET PO SCH (11:46)
[2019-05-30] MEDS: TAMSULOSIN 0.4 MG CAPSULE PO SCH (11:46)
[2019-05-30] MEDS: SENNA 8.6 MG TABLET PO SCH (11:46)
[2019-05-30] MEDS: DOCUSATE SODIUM 250 MG CAPSULE PO SCH (11:46)
[2019-05-30] MEDS: polyethylene glycoL 3350 17 GM PACKET PO SCH (11:46)
[2019-05-30] MEDS: carvediloL 12.5 MG TABLET PO SCH (11:46)
[2019-05-30] MEDS ORDERED: ENALAPRILAT 1.25 MG/ML VIAL IVP SCH (12:00)
--- NOTE | 2019-05-30 12:09 | PROVIDER PROGRESS NOTE ---
Subjective - Prog Note Date Prog Note Date: 05/30/19 - Subjective Pt reports feeling: No change Subjective: PT report pt participate PT evaluation and treatment. Nurse report pt still had difficult to swallow his medication due to his dysphagia. pt does not answer my question if you consider alternative feeding due to his dysphagia. I called pt's brother Ryan Prince at [phone], I update pt's medical conditions to him. Ryan talked with pt in the phone, urgently asked pt followup medical advise to have PEG tube. But pt still insist he can swallow. pt state he will try to eat puree diet today. if he still fail, he agree to have PEG tube on tomorrow. Current Medications - Current Medications Current Medications: Active Medications Acetaminophen (Tylenol) 650 mg PO Q4HR PRN PRN Reason: Pain 1 to 4 Last Admin: 05/28/19 10:32 Dose: 650 mg Aspirin () 300 mg [place] DAILY [facility] Atorvastatin Calcium (Lipitor) 80 mg PO QPM [facility] Last Admin: 05/29/19 20:42 Dose: 80 mg Carvedilol (Coreg) 12.5 mg PO DAILY [facility] Last Admin: 05/30/19 11:46 Dose: Not Given Docusate Sodium (Colace 250mg Capsule) 250 - 500 mg PO DAILY [facility] Last Admin: 05/30/19 11:46 Dose: Not Given Heparin Sodium (Porcine) () 5,000 unit SUBQ BID [facility] Last Admin: 05/30/19 12:14 Dose: 5,000 unit Hydralazine HCl (Apresoline Inj) 10 mg IVP QID PRN PRN Reason: Hypertensive Emergency Last Admin: 05/30/19 08:07 Dose: 10 mg Ampicillin Sodium/Sulbactam (Sodium 1.5 gm/ Sodium Chloride) 100 mls @ 200 mls/hr IV Q6HR [facility] Last Admin: 05/30/19 11:55 Dose: 200 mls/hr Potassium Chloride/Dextrose/Sod Cl (D5.45ns W/20 Meq Kcl) 1,000 mls @ 83.333 mls/hr IV .Q12H [facility] Stop: 05/31/19 09:59 Levothyroxine Sodium (Synthroid) 100 mcg PO QDAC [facility] Last Admin: 05/30/19 06:44 Dose: Not Given Lisinopril (Zestril) 30 mg PO DAILY [facility] Last Admin: 05/30/19 11:46 Dose: Not Given Metoprolol Tartrate (Lopressor Inj) 5 mg IVP Q6HR [facility] Last Admin: 05/30/19 12:03 Dose: 5 mg Mineral Oil (Cavilon) 1 applic TOP PRN PRN PRN Reason: Skin Care Last Admin: 05/27/19 19:02 Dose: 1 applic Polyethylene Glycol (Miralax) 17 gm PO DAILY [facility] Last Admin: 05/30/19 11:46 Dose: Not Given Senna (Senokot) 8.6 - 17.2 mg PO DAILY [facility] Last Admin: 05/30/19 11:46 Dose: Not Given Sodium Chloride (Normal Saline Flush 0.9%) 10 ml IVP PRN PRN PRN Reason: NEEDED PER PROVIDER ORDERS Last Admin: 05/29/19 12:55 Dose: 10 ml Sodium Chloride (Normal Saline Flush 0.9%) 10 ml IVP 0100,0900,1700 [facility] Last Admin: 05/30/19 09:20 Dose: Not Given Tamsulosin HCl (Flomax) 0.4 mg PO DAILY [facility] Last Admin: 05/30/19 11:46 Dose: Not Given Amlodipine Besylate 10 mg PO DAILY 01/18/15 lisinopriL [Lisinopril] 20 mg PO DAILY 01/18/15 Carvedilol 12.5 mg PO DAILY 05/25/19 Furosemide 40 mg PO DAILY 05/25/19 Levothyroxine [Synthroid] 100 mcg PO DAILY 05/25/19 Warfarin Sodium 5 mg PO DAILY 05/25/19 amLODIPine [Norvasc] 10 mg PO DAILY 05/25/19 Objective - Vital Signs/Intake & Output Vital Signs: Vital Signs x48h Temp Pulse Resp BP BP Pulse Ox 05/30/19 11:15 37.4 C 86 20 149/104 H 97 05/30/19 08:37 150/89 H 05/30/19 08:21 150/89 H 05/30/19 08:14 168/145 H 05/30/19 08:07 172/117 H 05/30/19 07:20 36.4 C L 86 18 178/101 H 93 05/30/19 06:40 89 148/103 H 05/30/19 06:35 87 159/108 H 05/30/19 06:30 108 H 187/122 H 05/30/19 06:20 131 H 154/112 H Intake & Output: Intake & Output 05/27/19 05/28/19 05/29/19 05/30/19 23:59 23:59 23:59 23:59 Intake Total 772 001.958 6408.606 1036.112 Output Total 50 Balance 772 664.083 2987.606 1036.112 - Objective General Appearance: positive: No acute distress, Alert. negative: Lethargic Eyes Bilateral: positive: Normal inspection, PERRL, No lid inflammation ENT: positive: ENT inspection nml, Pharynx nml, Dry mucous membranes. negative: Purulent nasal drainage Neck: positive: Nml inspection, Thyroid nml, No JVD, Trachea midline. negative: Thyromegaly, Stiff neck, Tracheal deviation Respiratory: positive: Chest non-tender, No respiratory distress. negative: Wheezes, Rales Cardiovascular: positive: No murmur, No gallop, Irregularly irregular. negative: Extrasystoles, Tachycardia, Bradycardia, Systolic murmur, Diastolic murmur Peripheral Pulses: 2+ Radial (R), 2+ Radial (L) Abdomen: positive: Non-tender, No organomegaly, Nml bowel sounds. negative: Tenderness, Guarding, Rebound Back: positive: Nml inspection Skin: positive: Warm, Dry. negative: Cyanosis, Diaphoresis, Pallor Extremities: positive: Non-tender. negative: Calf tenderness, Tawnya's sign/cords Neurologic/Psychiatric: positive: Oriented x3, Weakness, Sensory loss, Facial droop, Slurred/abnml speech - Lab Results Fish Bones: 05/30/19 04:40 05/30/19 04:40 Other Labs: Lab Results x24hrs 05/30/19 05/30/19 05/30/19 Range/Units 11:17 07:21 04:40 WBC (4.8-10.8) x10^3/uL RBC (4.70-6.10) 10^6/uL Hgb (14.0-18.0) g/dL Hct (42.0-52.0) % MCV (80.0-94.0) fL MCH (27.0-31.0) pg MCHC (32.0-36.0) g/dL RDW (12.0-15.0) % Plt Count (130-450) 10^3/uL MPV (7.4-11.4) fL Neut # (Auto) (1.5-6.6) 10^3/uL Lymph # (Auto) (1.5-3.5) 10^3/uL [place] # (Auto) (0.0-1.0) 10^3/uL Eos # (Auto) (0.0-0.7) 10^3/uL Baso # (Auto) (0.0-0.1) 10^3/uL Absolute Nucleated RBC x10^3/uL Nucleated RBC % /100WBC PT 15.5 H (9.9-12.6) secs INR 1.4 H (0.8-1.2) Sodium (135-145) mmol/L Potassium (3.5-5.0) mmol/L Chloride (101-111) mmol/L Carbon Dioxide (21-32) mmol/L Anion Gap (6-13) BUN (6-20) mg/dL Creatinine (0.6-1.2) mg/dL Estimated GFR (MDRD) (>89) Glucose (70-100) mg/dL POC Whole Bld Glucose 81 99 (70 - 100) mg/dL Calcium (8.5-10.3) mg/dL B-Natriuretic Peptide (5-100) pg/mL Free T4 (0.58-1.64) ng/dL 05/30/19 05/30/19 05/30/19 Range/Units 04:40 04:40 04:40 WBC (4.8-10.8) x10^3/uL RBC (4.70-6.10) 10^6/uL Hgb (14.0-18.0) g/dL Hct (42.0-52.0) % MCV (80.0-94.0) fL MCH (27.0-31.0) pg MCHC (32.0-36.0) g/dL RDW (12.0-15.0) % Plt Count (130-450) 10^3/uL MPV (7.4-11.4) fL Neut # (Auto) (1.5-6.6) 10^3/uL Lymph # (Auto) (1.5-3.5) 10^3/uL [place] # (Auto) (0.0-1.0) 10^3/uL Eos # (Auto) (0.0-0.7) 10^3/uL Baso # (Auto) (0.0-0.1) 10^3/uL Absolute Nucleated RBC x10^3/uL Nucleated RBC % /100WBC PT (9.9-12.6) secs INR (0.8-1.2) Sodium 144 (135-145) mmol/L Potassium 3.6 (3.5-5.0) mmol/L Chloride 112 H (101-111) mmol/L Carbon Dioxide 23 (21-32) mmol/L Anion Gap 9.0 (6-13) BUN 37 H (6-20) mg/dL Creatinine 2.0 H (0.6-1.2) mg/dL Estimated GFR (MDRD) 33 L (>89) Glucose 104 H (70-100) mg/dL POC Whole Bld Glucose (70 - 100) mg/dL Calcium 8.6 (8.5-10.3) mg/dL B-Natriuretic Peptide 471 H (5-100) pg/mL Free T4 0.68 (0.58-1.64) ng/dL 05/30/19 05/29/19 05/29/19 Range/Units 04:40 20:48 16:47 WBC 12.0 H (4.8-10.8) x10^3/uL RBC 5.01 (4.70-6.10) 10^6/uL Hgb 14.5 (14.0-18.0) g/dL Hct 45.6 (42.0-52.0) % MCV 91.0 (80.0-94.0) fL MCH 28.9 (27.0-31.0) pg MCHC 31.8 L (32.0-36.0) g/dL RDW 15.8 H (12.0-15.0) % Plt Count 200 (130-450) 10^3/uL MPV 12.9 H (7.4-11.4) fL Neut # (Auto) 10.0 H (1.5-6.6) 10^3/uL Lymph # (Auto) 0.8 L (1.5-3.5) 10^3/uL [place] # (Auto) 1.0 (0.0-1.0) 10^3/uL Eos # (Auto) 0.1 (0.0-0.7) 10^3/uL Baso # (Auto) 0.0 (0.0-0.1) 10^3/uL Absolute Nucleated RBC 0.00 x10^3/uL Nucleated RBC % 0.0 /100WBC PT (9.9-12.6) secs INR (0.8-1.2) Sodium (135-145) mmol/L Potassium (3.5-5.0) mmol/L Chloride (101-111) mmol/L Carbon Dioxide (21-32) mmol/L Anion Gap (6-13) BUN (6-20) mg/dL Creatinine (0.6-1.2) mg/dL Estimated GFR (MDRD) (>89) Glucose (70-100) mg/dL POC Whole Bld Glucose 94 97 (70 - 100) mg/dL Calcium (8.5-10.3) mg/dL B-Natriuretic Peptide (5-100) pg/mL Free T4 (0.58-1.64) ng/dL ABX Reporting Has patient been on IV antibiotics over the past 48 hours?: Yes Assessment/Plan - Problem List (1) Cerebrovascular accident (CVA) Impression: 05/29 PT evaluated and treated pt, and report pt participate the assessment and treatment. I called pt's brother and updated pt's medical conditions. 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 known atrial fibrillation with noncompliance to his Coumadin INR was 1.3 at the admission. 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 plan: Continue physical therapy, occupational therapy, speech therapy - Medication: continue aspirin and statin therapy. since infarct is stable in size as secondary CT reveals, then consider start anticoagulation in 5-7 days (2)dysphagia 05/29 pt reject alternate feeding again, and want to try puree diet today. pt still has this issue and discussed with pt and his brother, pt agree to have PEG on tomorrow if he still fail swallowing. pt can not swallow now because of his stroke. pt had issue for dysphagia from his first stroke consult with ST NPO with IVF (3)aspiration pneumonia 05/29 improved. pt's WBC is running down and pt has no fever. continue antibiotics pt presented aspiration from his stroke and dysphagia. CXR reveals right inf iltrate and elevated WBC plan: unasyn for PNA, continue IVF (4) Atrial fibrillation with rapid ventricular response Impression: stable now. Carvedilol was switched to Metoprolol IV because his dysphagia. pt had Coumadin at home, will start after pt's acute stroke is stable (5) Acute myocardial ischemia Impression: stable, Patient is currently asymptomatic and rate controlled. pt is on Aspirin, statin, and metoprolol. continue tele and vital monitor (6) Left ventricular dysfunction with reduced left ventricular function Impression: 05/29 pt has IVF at 83.3cc/h for his dysphagia. continue Metoprolol, aspirin and tele and vital monitor. his BNP is 471. Left venticular dysfunction found to have EF 25-30% on admission, pt is on Aspirin, statin, and metoprolol, will add Lisinopril. pt is dysphagia and NPO now (7) Constipation Continue nurse driven bowel movement protocol (8) Hypertension Impression: 05/29 elevated BP, continue Metoprolol and hydralazine PRN. pt is difficult to swallow his BP meds Continue current medications. Does not need permissive hypertension anymore. add PRN of hydralazine (9) Chronic kidney disease, stage III (moderate) Impression: 05/29 improved. continue slight IVF, and lab monitor slight increased creatinine, start on gently IVF, daily lab and vital monitor (10)medical noncompliance pt did not take his Coumadin, pt has hx of afib and CHADsVasc2 4. it is likely reason pt had another stroke advise pt for medical compliance and discussed with pt's caregiver Ms. Parker (11) palliative care 05/29 pt insist his code status, full code, pt had palliative care consult. 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 overall, his prognosis is poor. Qualifiers: CVA mechanism: thrombosis Laterality of affected vessel: right
[2019-05-30] MEDS: HEPARIN 5,000 UNIT/ML VIAL SUBQ SCH ×2 (12:14→21:01)
[2019-05-30] MEDS: D5.45NS W/20 MEQ KCL 1,000 ML IV SCH (13:40)
[2019-05-30] MEDS: ASPIRIN 300 MG SUPP PR SCH (14:29)
[2019-05-30] MEDS: SODIUM CHLORIDE FLUSH 0.9% 10 ML SYRINGE IVP PRN (19:40)
[2019-05-30] MEDS: ATORVASTATIN 40 MG TABLET PO SCH (19:41)
[2019-05-31] MEDS: SODIUM CHLORIDE FLUSH 0.9% 10 ML SYRINGE IVP SCH ×3 (00:21→18:00)
[2019-05-31] MEDS: SODIUM CHLORIDE FLUSH 0.9% 10 ML SYRINGE IVP PRN ×2 (00:25→04:55)
[2019-05-31] MEDS: D5.45NS W/20 MEQ KCL 1,000 ML IV SCH (01:51)
[2019-05-31] MEDS: METOPROLOL 5 MG/5 ML VIAL IVP SCH ×3 (05:00→18:02)
[2019-05-31] MEDS: AMPICILLIN/SULBACTAM 1.5 GM in SODIUM CHLORIDE 0.9% MINIBAG 100 ML IV SCH ×3 (05:01→18:00)
[2019-05-31 05:40] LABS: BASOPHILS % (AUTO) 0.3 %; EOSINOPHILS # (AUTO) 0.1 10^3/uL (0.0-0.7); EOSINOPHILS % (AUTO) 0.5 %; HGB - HEMOGLOBIN 14.9 g/dL (14.0-18.0); LYMPHOCYTES # (AUTO) 0.7 10^3/uL (1.5-3.5); LYMPHOCYTES % (AUTO) 6.4 %; MEAN CORPUSCULAR VOLUME 90.7 fL (80.0-94.0); MONOCYTES # (AUTO) 1.1 10^3/uL (0.0-1.0); MONOCYTES % (AUTO) 9.6 %; NEUTROPHILS # (AUTO) 9.4 10^3/uL (1.5-6.6); NEUTROPHILS % (AUTO) 82.2 %; PLT - PLATELET COUNT 210 10^3/uL (130-450); RED BLOOD COUNT 5.14 10^6/uL (4.70-6.10); RED CELL DISTRIBUTION WIDTH 15.7 % (12.0-15.0); WHITE BLOOD COUNT 11.4 x10^3/uL (4.8-10.8)
[2019-05-31 05:43] LABS: INR 1.4 (0.8-1.2)
[2019-05-31 05:49] LABS: CALCIUM 8.5 mg/dL (8.5-10.3); CREATININE 1.6 mg/dL (0.6-1.2); MAGNESIUM 2.3 mg/dL (1.7-2.8)
[2019-05-31] MEDS: LEVOTHYROXINE 100 MCG TABLET PO SCH (06:19)
[2019-05-31] MEDS: TAMSULOSIN 0.4 MG CAPSULE PO SCH (08:23)
[2019-05-31] MEDS: carvediloL 12.5 MG TABLET PO SCH ×2 (08:23→21:13)
[2019-05-31] MEDS: polyethylene glycoL 3350 17 GM PACKET PO SCH (08:24)
[2019-05-31] MEDS: HEPARIN 5,000 UNIT/ML VIAL SUBQ SCH ×2 (08:24→21:13)
[2019-05-31] MEDS: SENNA 8.6 MG TABLET PO SCH (08:24)
[2019-05-31] MEDS: ASPIRIN 300 MG SUPP PR SCH (08:26)
[2019-05-31] MEDS: DOCUSATE SODIUM 250 MG CAPSULE PO SCH (08:26)
[2019-05-31] MEDS: lisinopriL 20 MG TABLET PO SCH (08:26)
--- NOTE | 2019-05-31 08:45 | PROVIDER PROGRESS NOTE ---
Assessment/Plan - Problem List (1) Cerebrovascular accident (CVA) Qualifiers: CVA mechanism: thrombosis Laterality of affected vessel: right Assessment/Plan: With left hemiparesis due to right frontal lobe CVA. Patient has history of atrial fibrillation with noncompliance to Coumadin. INR was 1.3 at admission. Patient found to have 100% occlusion of the right internal carotid artery above the bifurcation. Physical therapy working with patient. Patient has failed attempts to swallow his food. As a result I discussed with general surgery Dr. Rahman today about possible PEG tube placement. We will discuss this further on Sunday June 02, 2019. (2) Dysphagia Qualifiers: Dysphagia type: unspecified Qualified Code(s): R13.10 - Dysphagia, unspecified Assessment/Plan: Likely related to his CVA. Potential plan for PEG tube on Sunday, June 02, 2019 (3) Aspiration pneumonia Assessment/Plan: Likely related to dysphasia which in turn is related to CVA. Patient is on Unasyn. He has been afebrile and his white blood cell count is trending down. We will continue therapy. (4) Atrial fibrillation with rapid ventricular response Assessment/Plan: RVR improved/resolved. Patient on Coreg 12.5 mg p.o. daily. Will adjust dose to Coreg 12.5 mg p.o. twice daily. Patient on aspirin suppository 300 mg daily. We will evaluate and starting xarelto or eliquis when appropriate to do so (5) Chronic kidney disease, stage III (moderate) Assessment/Plan: Patient's renal function has been steadily improving. His GFR today is 43. Yes terday it was 33 (6) Hypothyroidism Assessment/Plan: Continue patient's Synthroid (7) Hypertension Qualifiers: Hypertension type: essential hypertension Qualified Code(s): I10 - Essential (primary) hypertension Assessment/Plan: Patient is on Coreg, hydralazine and lisinopril (8) Left ventricular dysfunction with reduced left ventricular function Assessment/Plan: Ejection fraction at time of admission was 25 to 30%. Patient is on aspirin, statin, Coreg and lisinopril. We will continue to monitor and consider adding Lasix when appropriate to do so - Current Meds Current Meds: Current Medications Generic Name Dose Route Start Last Admin Trade Name Freq PRN Reason Stop Dose Admin Acetaminophen 650 mg 05/25/19 19:23 05/28/19 10:32 Tylenol PO 650 mg Q4HR PRN Administration Pain 1 to 4 Aspirin 300 mg 05/30/19 10:00 05/31/19 08:26 [place] 300 mg DAILY [facility] Administration Atorvastatin Calcium 80 mg 05/25/19 21:00 05/30/19 19:41 Lipitor PO Not Given QPM [facility] Carvedilol 12.5 mg 05/30/19 09:00 05/31/19 08:23 Coreg PO 12.5 mg DAILY [facility] Administration Docusate Sodium 250 - 500 mg 05/26/19 09:00 05/31/19 08:26 Colace 250mg Capsule PO 250 mg DAILY [facility] Administration Heparin Sodium (Porcine) 5,000 unit 05/25/19 21:00 05/31/19 08:24 SUBQ 5,000 unit BID [facility] Administration Hydralazine HCl 10 mg 05/29/19 11:01 05/30/19 19:40 Apresoline Inj IVP 10 mg QID PRN Administration Hypertensive Emergency Ampicillin Sodium/Sulbactam 100 mls @ 200 mls/hr 05/29/19 12:30 05/31/19 06:14 Sodium 1.5 gm/ Sodium Chloride IV Infused Q6HR [facility] Infusion Potassium Chloride/Dextrose/Sod Cl 1,000 mls @ 83.333 mls/hr 05/30/19 10:00 05/31/19 01:51 D5.45ns W/20 Meq Kcl IV 05/31/19 09:59 83.333 mls/hr .Q12H [facility] Administration Levothyroxine Sodium 100 mcg 05/26/19 07:00 05/31/19 06:19 Synthroid PO 100 mcg QDAC [facility] Administration Lisinopril 30 mg 05/30/19 09:00 05/31/19 08:26 Zestril PO 30 mg DAILY [facility] Administration Metoprolol Tartrate 5 mg 05/30/19 12:00 05/31/19 05:00 Lopressor Inj IVP 5 mg Q6HR [facility] Administration Mineral Oil 1 applic 05/26/19 01:27 05/27/19 19:02 Cavilon TOP 1 applic PRN PRN Administration Skin Care Polyethylene Glycol 17 gm 05/26/19 09:00 05/31/19 08:24 Miralax PO 17 gm DAILY [facility] Administration Senna 8.6 - 17.2 mg 05/26/19 09:00 05/31/19 08:24 Senokot PO 8.6 mg DAILY [facility] Administration Sodium Chloride 10 ml 05/25/19 19:23 05/31/19 04:55 Normal Saline Flush 0.9% IVP 10 ml PRN PRN Administration NEEDED PER PROVIDER ORDERS Sodium Chloride 10 ml 05/26/19 01:00 05/31/19 08:24 Normal Saline Flush 0.9% IVP 10 ml 0100,0900,1700 [facility] Administration Tamsulosin HCl 0.4 mg 05/26/19 08:34 05/31/19 08:23 Flomax PO 0.4 mg DAILY [facility] Administration - Lab Result Fish Bone Diagrams: 05/31/19 05:18 05/31/19 05:18 Subjective - Subjective Patient Reports: Other (Patient was seen and examined this afternoon. On the time of my exam he was sound asleep. However just before then he had been working with physical therapy. He was arousableWith significant prompting. He would follow some commands then fall back to sleep. He seemed to be weaker on his left side. It was reported by nursing staff that he was not able to eat his meals. After chewing for a while he would leave the food in his mouth for period of time then spit it out.) Objective Vital Signs: Vital Signs - 24 hr 05/30/19 05/30/19 05/30/19 11:15 12:03 12:19 Temperature 37.4 C Heart Rate [ 86 Brachial] Respiratory 20 Rate Blood Pressure 162/120 H Blood Pressure 149/104 H 138/90 H [Right Brachial artery] O2 Saturation 97 05/30/19 05/30/19 05/30/19 16:10 17:16 19:40 Temperature 36.5 C Heart Rate [ 92 Brachial] Respiratory 20 Rate Blood Pressure 160/89 H 166/106 H Blood Pressure 160/89 H [Right Brachial artery] O2 Saturation 95 05/30/19 05/30/19 05/30/19 19:55 19:57 20:10 Temperature 36.4 C L Heart Rate [ 100 Brachial] Respiratory 20 Rate Blood Pressure 144/98 H Blood Pressure 157/123 H 166/106 H [Right Brachial artery] O2 Saturation 96 05/30/19 05/30/19 05/31/19 23:55 23:58 05:00 Temperature 37.3 C 36.8 C Heart Rate [ 103 H 79 Brachial] Respiratory 22 24 Rate Blood Pressure 148/85 H 156/110 H Blood Pressure 159/100 H 156/110 H [Right Brachial artery] O2 Saturation 97 98 05/31/19 06:43 Temperature Heart Rate [ 84 Brachial] Respiratory Rate Blood Pressure Blood Pressure 140/99 H [Right Brachial artery] O2 Saturation Oxygen O2 Source Room air I&O (Last 24 Hrs): Intake and Output Totals x24h 05/29/19 05/30/19 05/31/19 23:59 23:59 23:59 Intake Total 2803.606 2436.112 1200 Output Total 475 Balance 2803.606 2436.112 725 General: Other (Very sleepy) HEENT: Atraumatic, PERRLA, EOMI Neck: Supple, No JVD Neuro: Focal Deficits (Left sided weakness) Cardiovascular: Regular rate, Normal S1, Normal S2 Respiratory: Chest non-tender, No respiratory distress, Breath sounds nml Abdomen: Normal bowel sounds, Soft, No tenderness, Other (Obese abdomen) Extremities: No clubbing, No cyanosis, No edema Skin: No rashes - Results Results: Laboratory Results WBC 11.4 x10^3/uL (4.8-10.8) H 05/31/19 05:18 RBC 5.14 10^6/uL (4.70-6.10) 05/31/19 05:18 Hgb 14.9 g/dL (14.0-18.0) 05/31/19 05:18 Hct 46.6 % (42.0-52.0) 05/31/19 05:18 MCV 90.7 fL (80.0-94.0) 05/31/19 05:18 MCH 29.0 pg (27.0-31.0) 05/31/19 05:18 MCHC 32.0 g/dL (32.0-36.0) 05/31/19 05:18 RDW 15.7 % (12.0-15.0) H 05/31/19 05:18 Plt Count 210 10^3/uL (130-450) 05/31/19 05:18 MPV 12.0 fL (7.4-11.4) H 05/31/19 05:18 Neut # (Auto) 9.4 10^3/uL (1.5-6.6) H 05/31/19 05:18 Lymph # (Auto) 0.7 10^3/uL (1.5-3.5) L 05/31/19 05:18 [place] # (Auto) 1.1 10^3/uL (0.0-1.0) H 05/31/19 05:18 Eos # (Auto) 0.1 10^3/uL (0.0-0.7) 05/31/19 05:18 Baso # (Auto) 0.0 10^3/uL (0.0-0.1) 05/31/19 05:18 Absolute Nucleated RBC 0.00 x10^3/uL 05/31/19 05:18 Nucleated RBC % 0.0 /100WBC 05/31/19 05:18 PT 16.0 secs (9.9-12.6) H 05/31/19 05:18 INR 1.4 (0.8-1.2) H 05/31/19 05:18 APTT 28.4 secs (24.9-33.3) 05/25/19 17:25 Anti-Xa Level 0.0 U/mL (-0.7) 05/25/19 17:25 Sodium 141 mmol/L (135-145) 05/31/19 05:18 Potassium 3.6 mmol/L (3.5-5.0) 05/31/19 05:18 Chloride 112 mmol/L (101-111) H 05/31/19 05:18 Carbon Dioxide 20 mmol/L (21-32) L 05/31/19 05:18 Anion Gap 9.0 (6-13) 05/31/19 05:18 BUN 28 mg/dL (6-20) H 05/31/19 05:18 Creatinine 1.6 mg/dL (0.6-1.2) H 05/31/19 05:18 Estimated GFR (MDRD) 43 (>89) L 05/31/19 05:18 Glucose 100 mg/dL (70-100) 05/31/19 05:18 POC Whole Bld Glucose 105 mg/dL (70 - 100) H 05/31/19 07:51 Glycated Hemoglobin 5.3 % (4.6-6.2) 05/26/19 05:03 Estim Average Glucose 105 (70-100) H 05/26/19 05:03 Calcium 8.5 mg/dL (8.5-10.3) 05/31/19 05:18 Phosphorus 3.5 mg/dL (2.5-4.6) 05/28/19 04:20 Magnesium 2.3 mg/dL (1.7-2.8) 05/31/19 05:18 Total Bilirubin 2.1 mg/dL (0.2-1.0) H 05/25/19 17:25 AST 19 IU/L (10-42) 05/25/19 17:25 ALT 15 IU/L (10-60) 05/25/19 17:25 Alkaline Phosphatase 55 IU/L (42-121) 05/25/19 17:25 Troponin I High Sens 134.5 ng/L (2.3-19.7) H* 05/25/19 21:05 B-Natriuretic Peptide 471 pg/mL (5-100) H 05/30/19 04:40 Total Protein 7.6 g/dL (6.7-8.2) 05/25/19 17:25 Albumin 3.9 g/dL (3.2-5.5) 05/25/19 17:25 Globulin 3.7 g/dL (2.1-4.2) 05/25/19 17:25 Albumin/Globulin Ratio 1.1 (1.0-2.2) 05/25/19 17:25 Triglycerides 70 mg/dL (-149) 05/26/19 05:03 Cholesterol 191 mg/dL (-199) 05/26/19 05:03 LDL Cholesterol, Calc 139 mg/dL (-129) H 05/26/19 05:03 VLDL Cholesterol 14 mg/dL 05/26/19 05:03 HDL Cholesterol 38 mg/dL (60-) L 05/26/19 05:03 LDL/HDL Ratio 3.7 (<3.6) 05/26/19 05:03 Cholesterol/HDL Ratio 5.0 (<5.0) 05/26/19 05:03 Lipase 23 U/L (22-51) 05/25/19 17:25 TSH 9.51 uIU/mL (0.34-5.60) H 05/26/19 05:03 Free T4 0.68 ng/dL (0.58-1.64) 05/30/19 04:40 Urine Color YELLOW 05/25/19 19:15 Urine Clarity CLEAR (CLEAR) 05/25/19 19:15 Urine pH 6.0 PH (5.0-7.5) 05/25/19 19:15 Ur Specific [place] >=1.030 (1.002-1.030) H 05/25/19 19:15 Urine Protein 100 mg/dL (NEGATIVE) H 05/25/19 19:15 Urine Glucose (UA) NEGATIVE mg/dL (NEGATIVE) 05/25/19 19:15 Urine Ketones TRACE mg/dL (NEGATIVE) 05/25/19 19:15 Urine Occult Blood SMALL (NEGATIVE) H 05/25/19 19:15 Urine Nitrite NEGATIVE (NEGATIVE) 05/25/19 19:15 Urine Bilirubin NEGATIVE (NEGATIVE) 05/25/19 19:15 Urine Urobilinogen 0.2 (NORMAL) E.U./dL (NORMAL) 05/25/19 19:15 Ur Leukocyte Esterase NEGATIVE (NEGATIVE) 05/25/19 19:15 Urine RBC 0-5 /HPF (0-5) 05/25/19 19:15 Urine WBC 0-3 /HPF (0-3) 05/25/19 19:15 Ur Squamous Epith Cells RARE Squamous (<= Few) 05/25/19 19:15 Urine Bacteria Rare /HPF (None Seen) 05/25/19 19:15 Ur Microscopic Review INDICATED 05/25/19 19:15 Urine Culture Comments NOT INDICATED 05/25/19 19:15 Coronavirus (PCR) NEGATIVE 05/28/19 10:26 ABX Reporting Has patient been on IV antibiotics over the past 48 hours?: No
[2019-05-31] MEDS: hydrALAZINE INJ 20 MG/ML VIAL IVP PRN (09:15)
[2019-05-31] MEDS: ATORVASTATIN 40 MG TABLET PO SCH (21:13)
[2019-06-01] MEDS: AMPICILLIN/SULBACTAM 1.5 GM in SODIUM CHLORIDE 0.9% MINIBAG 100 ML IV SCH ×4 (00:40→17:56)
[2019-06-01] MEDS: METOPROLOL 5 MG/5 ML VIAL IVP SCH ×4 (00:41→17:56)
[2019-06-01] MEDS: SODIUM CHLORIDE FLUSH 0.9% 10 ML SYRINGE IVP SCH ×3 (00:44→17:57)
[2019-06-01] MEDS: SODIUM CHLORIDE FLUSH 0.9% 10 ML SYRINGE IVP PRN ×3 (00:51→05:16)
[2019-06-01 05:05] LABS: BASOPHILS % (AUTO) 0.2 %; EOSINOPHILS # (AUTO) 0.1 10^3/uL (0.0-0.7); EOSINOPHILS % (AUTO) 1.2 %; HGB - HEMOGLOBIN 14.3 g/dL (14.0-18.0); LYMPHOCYTES # (AUTO) 0.9 10^3/uL (1.5-3.5); LYMPHOCYTES % (AUTO) 8.3 %; MEAN CORPUSCULAR HEMOGLOBIN 28.5 pg (27.0-31.0); MEAN CORPUSCULAR HGB CONC 31.6 g/dL (32.0-36.0); MEAN CORPUSCULAR VOLUME 90.4 fL (80.0-94.0); MEAN PLATELET VOLUME 11.7 fL (7.4-11.4); MONOCYTES # (AUTO) 0.9 10^3/uL (0.0-1.0); MONOCYTES % (AUTO) 8.3 %; NEUTROPHILS # (AUTO) 8.8 10^3/uL (1.5-6.6); NEUTROPHILS % (AUTO) 81.3 %; PLT - PLATELET COUNT 219 10^3/uL (130-450); RED BLOOD COUNT 5.01 10^6/uL (4.70-6.10); WHITE BLOOD COUNT 10.8 x10^3/uL (4.8-10.8)
[2019-06-01 05:10] LABS: INR 1.4 (0.8-1.2); PT - PROTHROMBIN TIME 15.5 secs (9.9-12.6)
[2019-06-01 05:13] LABS: CALCIUM 8.3 mg/dL (8.5-10.3); CREATININE 1.7 mg/dL (0.6-1.2)
[2019-06-01] MEDS: LEVOTHYROXINE 100 MCG TABLET PO SCH (06:24)
[2019-06-01] MEDS ORDERED: DEXTROSE 5%-0.45% NACL 1,000 ML IV SCH (08:00)
[2019-06-01] MEDS: DOCUSATE SODIUM 250 MG CAPSULE PO SCH (08:12)
[2019-06-01] MEDS: polyethylene glycoL 3350 17 GM PACKET PO SCH (08:13)
[2019-06-01] MEDS: DEXTROSE 5%-0.45% NACL 1,000 ML IV SCH ×2 (09:03→20:36)
[2019-06-01] MEDS: ASPIRIN 300 MG SUPP PR SCH (09:03)
[2019-06-01] MEDS: TAMSULOSIN 0.4 MG CAPSULE PO SCH (09:11)
[2019-06-01] MEDS: lisinopriL 20 MG TABLET PO SCH (09:11)
[2019-06-01] MEDS: SENNA 8.6 MG TABLET PO SCH (09:11)
[2019-06-01] MEDS: carvediloL 12.5 MG TABLET PO SCH ×2 (09:11→20:37)
[2019-06-01] MEDS: HEPARIN 5,000 UNIT/ML VIAL SUBQ SCH ×2 (09:52→20:35)
--- NOTE | 2019-06-01 12:00 | PROVIDER PROGRESS NOTE ---
Assessment/Plan - Problem List (1) Cerebrovascular accident (CVA) Qualifiers: CVA mechanism: thrombosis Laterality of affected vessel: right Assessment/Plan: Patient made n.p.o. today. D5 half-normal saline started at 100 mils per hour Patient worked with physical therapy today. Anticipated PEG tube placement tomorrow. (2) Dysphagia Qualifiers: Dysphagia type: unspecified Qualified Code(s): R13.10 - Dysphagia, unspecified Assessment/Plan: Patient n.p.o. PEG tube placement tomorrow (3) Aspiration pneumonia Assessment/Plan: Today is day #4 of IV antibiotics. Patient's white blood cell count has normalized. Patient continues to be afebrile. We will reevaluate antibiotic for discontinuation after completion tomorrow which should be day #5 (4) Atrial fibrillation with rapid ventricular response Assessment/Plan: RVR resolved/improved. Patient's Coreg held for now due to dysphasia. Patient is on metoprolol IV every 6 hours. We will resume Coreg tomorrow when PEG tube placed (6) Hypothyroidism Assessment/Plan: On Synthroid 100 mcg daily (7) Hypertension Qualifiers: Hypertension type: essential hypertension Qualified Code(s): I10 - Essential (primary) hypertension Assessment/Plan: Currently on metoprolol 5 mgIV every 6 hours and hydralazine 10 mg IV 4 times daily as needed We will continue patient's Coreg and lisinopril once PEG tube placed tomorrow (8) Left ventricular dysfunction with reduced left ventricular function Assessment/Plan: Currently not in exacerbation. Continue current treatment - Current Meds Current Meds: Current Medications Generic Name Dose Route Start Last Admin Trade Name Rashaadq PRN Reason Stop Dose Admin Acetaminophen 650 mg 05/25/19 19:23 05/28/19 10:32 Tylenol PO 650 mg Q4HR PRN Administration Pain 1 to 4 Aspirin 300 mg 05/30/19 10:00 06/01/19 09:03 [place] 300 mg DAILY LUIS Administration Atorvastatin Calcium 80 mg 05/25/19 21:00 05/31/19 21:13 Lipitor PO 80 mg QPM LUIS Administration Carvedilol 12.5 mg 05/31/19 21:00 06/01/19 09:11 Coreg PO Not Given BID LUIS Docusate Sodium 250 - 500 mg 05/26/19 09:00 06/01/19 08:12 Colace 250mg Capsule PO Not Given DAILY [facility] Heparin Sodium (Porcine) 5,000 unit 05/25/19 21:00 06/01/19 09:52 SUBQ 5,000 unit BID LUIS Administration Hydralazine HCl 10 mg 05/29/19 11:01 05/31/19 09:15 Apresoline Inj IVP 10 mg QID PRN Administration Hypertensive Emergency Ampicillin Sodium/Sulbactam 100 mls @ 200 mls/hr 05/29/19 12:30 06/01/19 05:59 Sodium 1.5 gm/ Sodium Chloride IV Infused Q6HR LUIS Infusion Dextrose/Sodium Chloride 1,000 mls @ 100 mls/hr 06/01/19 08:48 06/01/19 09:03 D5.45ns IV 100 mls/hr .Q10H LUIS Administration Levothyroxine Sodium 100 mcg 05/26/19 07:00 06/01/19 06:24 Synthroid PO 100 mcg QDAC LUIS Administration Lisinopril 30 mg 05/30/19 09:00 06/01/19 09:11 Zestril PO Not Given DAILY [facility] Metoprolol Tartrate 5 mg 05/30/19 12:00 06/01/19 05:10 Lopressor Inj IVP 5 mg Q6HR LUIS Administration Mineral Oil 1 applic 05/26/19 01:27 05/27/19 19:02 Cavilon TOP 1 applic PRN PRN Administration Skin Care Polyethylene Glycol 17 gm 05/26/19 09:00 06/01/19 08:13 Miralax PO Not Given DAILY [facility] Senna 8.6 - 17.2 mg 05/26/19 09:00 06/01/19 09:11 Senokot PO Not Given DAILY [facility] Sodium Chloride 10 ml 05/25/19 19:23 06/01/19 05:16 Normal Saline Flush 0.9% IVP 10 ml PRN PRN Administration NEEDED PER PROVIDER ORDERS Sodium Chloride 10 ml 05/26/19 01:00 06/01/19 09:11 Normal Saline Flush 0.9% IVP 10 ml 0100,0900,1700 LUIS Administration Tamsulosin HCl 0.4 mg 05/26/19 08:34 06/01/19 09:11 Flomax PO Not Given DAILY LUIS - Lab Result Fish Bone Diagrams: 06/01/19 04:47 06/01/19 04:47 - Additional Planning Condition/Complexity: Stable My Orders: My Active Orders 05/31/19 12:04 Rust Insertion [RC] QSHIFT 05/31/19 21:00 carvediloL [Coreg] 12.5 mg PO BID 06/01/19 08:48 Dextrose 5%-0.45% NaCl [D5.45ns] 1,000 ml IV 100 mls/hr 06/01/19 08:50 NPO except Meds [DIET] Time Spent: 15-30 minutes Subjective - Subjective Patient Reports: Other Objective Vital Signs: Vital Signs - 24 hr 05/31/19 05/31/19 05/31/19 11:59 15:24 18:02 Temperature 36.3 C L Heart Rate [ Brachial] Heart Rate [ 79 Monitoring electrodes] Respiratory 17 Rate Blood Pressure 143/95 H 134/86 H Blood Pressure 133/75 H [Right Brachial artery] O2 Saturation 99 05/31/19 05/31/19 05/31/19 18:05 18:11 18:15 Temperature Heart Rate [ 68 74 62 Brachial] Heart Rate [ Monitoring electrodes] Respiratory Rate Blood Pressure Blood Pressure 123/72 118/82 H 119/84 H [Right Brachial artery] O2 Saturation 05/31/19 05/31/19 05/31/19 18:17 18:31 18:47 Temperature Heart Rate [ 75 60 84 Brachial] Heart Rate [ Monitoring electrodes] Respiratory Rate Blood Pressure Blood Pressure 112/55 L 123/94 H 116/71 [Right Brachial artery] O2 Saturation 05/31/19 05/31/19 05/31/19 19:01 19:06 23:43 Temperature 36.3 C L Heart Rate [ 61 76 80 Brachial] Heart Rate [ Monitoring electrodes] Respiratory 16 22 Rate Blood Pressure Blood Pressure 130/75 130/75 140/97 H [Right Brachial artery] O2 Saturation 97 96 06/01/19 06/01/19 06/01/19 00:41 04:30 05:10 Temperature 37 C Heart Rate [ 62 Brachial] Heart Rate [ Monitoring electrodes] Respiratory 18 Rate Blood Pressure 132/87 H 133/89 H Blood Pressure 122/88 H [Right Brachial artery] O2 Saturation 97 06/01/19 06/01/19 07:40 11:56 Temperature 36.6 C 36.5 C Heart Rate [ Brachial] Heart Rate [ 56 L 72 Monitoring electrodes] Respiratory 14 16 Rate Blood Pressure Blood Pressure 142/99 H 143/95 H [Right Brachial artery] O2 Saturation 98 98 Oxygen O2 Source Room air I&O (Last 24 Hrs): Intake and Output Totals x24h 05/30/19 05/31/19 06/01/19 23:59 23:59 23:59 Intake Total 2436.112 2540 200 Output Total 825 300 Balance 2436.112 1715 -100 General: Alert, Oriented x3, Cooperative, No acute distress HEENT: Atraumatic, PERRLA, EOMI Neck: Supple, No JVD Neuro: Alert, Focal Deficits (left-sided weakness), Other (dysphagia) Cardiovascular: Other (irregularly irregular) Respiratory: Chest non-tender, No respiratory distress, Breath sounds nml Abdomen: Normal bowel sounds, Soft, No tenderness Extremities: No clubbing, No cyanosis, No edema Skin: No rashes - Results Results: Laboratory Results WBC 10.8 x10^3/uL (4.8-10.8) 06/01/19 04:47 RBC 5.01 10^6/uL (4.70-6.10) 06/01/19 04:47 Hgb 14.3 g/dL (14.0-18.0) 06/01/19 04:47 Hct 45.3 % (42.0-52.0) 06/01/19 04:47 MCV 90.4 fL (80.0-94.0) 06/01/19 04:47 MCH 28.5 pg (27.0-31.0) 06/01/19 04:47 MCHC 31.6 g/dL (32.0-36.0) L 06/01/19 04:47 RDW 16.0 % (12.0-15.0) H 06/01/19 04:47 Plt Count 219 10^3/uL (130-450) 06/01/19 04:47 MPV 11.7 fL (7.4-11.4) H 06/01/19 04:47 Neut # (Auto) 8.8 10^3/uL (1.5-6.6) H 06/01/19 04:47 Lymph # (Auto) 0.9 10^3/uL (1.5-3.5) L 06/01/19 04:47 [place] # (Auto) 0.9 10^3/uL (0.0-1.0) 06/01/19 04:47 Eos # (Auto) 0.1 10^3/uL (0.0-0.7) 06/01/19 04:47 Baso # (Auto) 0.0 10^3/uL (0.0-0.1) 06/01/19 04:47 Absolute Nucleated RBC 0.00 x10^3/uL 06/01/19 04:47 Nucleated RBC % 0.0 /100WBC 06/01/19 04:47 PT 15.5 secs (9.9-12.6) H 06/01/19 04:47 INR 1.4 (0.8-1.2) H 06/01/19 04:47 APTT 28.4 secs (24.9-33.3) 05/25/19 17:25 Anti-Xa Level 0.0 U/mL (-0.7) 05/25/19 17:25 Sodium 141 mmol/L (135-145) 06/01/19 04:47 Potassium 3.5 mmol/L (3.5-5.0) 06/01/19 04:47 Chloride 112 mmol/L (101-111) H 06/01/19 04:47 Carbon Dioxide 19 mmol/L (21-32) L 06/01/19 04:47 Anion Gap 10.0 (6-13) 06/01/19 04:47 BUN 35 mg/dL (6-20) H 06/01/19 04:47 Creatinine 1.7 mg/dL (0.6-1.2) H 06/01/19 04:47 Estimated GFR (MDRD) 40 (>89) L 06/01/19 04:47 Glucose 91 mg/dL (70-100) 06/01/19 04:47 POC Whole Bld Glucose 105 mg/dL (70 - 100) H 06/01/19 11:35 Glycated Hemoglobin 5.3 % (4.6-6.2) 05/26/19 05:03 Estim Average Glucose 105 (70-100) H 05/26/19 05:03 Calcium 8.3 mg/dL (8.5-10.3) L 06/01/19 04:47 Phosphorus 3.5 mg/dL (2.5-4.6) 05/28/19 04:20 Magnesium 2.3 mg/dL (1.7-2.8) 05/31/19 05:18 Total Bilirubin 2.1 mg/dL (0.2-1.0) H 05/25/19 17:25 AST 19 IU/L (10-42) 05/25/19 17:25 ALT 15 IU/L (10-60) 05/25/19 17:25 Alkaline Phosphatase 55 IU/L (42-121) 05/25/19 17:25 Troponin I High Sens 134.5 ng/L (2.3-19.7) H* 05/25/19 21:05 B-Natriuretic Peptide 471 pg/mL (5-100) H 05/30/19 04:40 Total Protein 7.6 g/dL (6.7-8.2) 05/25/19 17:25 Albumin 3.9 g/dL (3.2-5.5) 05/25/19 17:25 Globulin 3.7 g/dL (2.1-4.2) 05/25/19 17:25 Albumin/Globulin Ratio 1.1 (1.0-2.2) 05/25/19 17:25 Triglycerides 70 mg/dL (-149) 05/26/19 05:03 Cholesterol 191 mg/dL (-199) 05/26/19 05:03 LDL Cholesterol, Calc 139 mg/dL (-129) H 05/26/19 05:03 VLDL Cholesterol 14 mg/dL 05/26/19 05:03 HDL Cholesterol 38 mg/dL (60-) L 05/26/19 05:03 LDL/HDL Ratio 3.7 (<3.6) 05/26/19 05:03 Cholesterol/HDL Ratio 5.0 (<5.0) 05/26/19 05:03 Lipase 23 U/L (22-51) 05/25/19 17:25 TSH 9.51 uIU/mL (0.34-5.60) H 05/26/19 05:03 Free T4 0.68 ng/dL (0.58-1.64) 05/30/19 04:40 Urine Color YELLOW 05/25/19 19:15 Urine Clarity CLEAR (CLEAR) 05/25/19 19:15 Urine pH 6.0 PH (5.0-7.5) 05/25/19 19:15 Ur Specific [place] >=1.030 (1.002-1.030) H 05/25/19 19:15 Urine Protein 100 mg/dL (NEGATIVE) H 05/25/19 19:15 Urine Glucose (UA) NEGATIVE mg/dL (NEGATIVE) 05/25/19 19:15 Urine Ketones TRACE mg/dL (NEGATIVE) 05/25/19 19:15 Urine Occult Blood SMALL (NEGATIVE) H 05/25/19 19:15 Urine Nitrite NEGATIVE (NEGATIVE) 05/25/19 19:15 Urine Bilirubin NEGATIVE (NEGATIVE) 05/25/19 19:15 Urine Urobilinogen 0.2 (NORMAL) E.U./dL (NORMAL) 05/25/19 19:15 Ur Leukocyte Esterase NEGATIVE (NEGATIVE) 05/25/19 19:15 Urine RBC 0-5 /HPF (0-5) 05/25/19 19:15 Urine WBC 0-3 /HPF (0-3) 05/25/19 19:15 Ur Squamous Epith Cells RARE Squamous (<= Few) 05/25/19 19:15 Urine Bacteria Rare /HPF (None Seen) 05/25/19 19:15 Ur Microscopic Review INDICATED 05/25/19 19:15 Urine Culture Comments NOT INDICATED 05/25/19 19:15 Coronavirus (PCR) NEGATIVE 05/28/19 10:26 ABX Reporting Has patient been on IV antibiotics over the past 48 hours?: No
[2019-06-01] MEDS: ATORVASTATIN 40 MG TABLET PO SCH (20:37)
[2019-06-02] MEDS: METOPROLOL 5 MG/5 ML VIAL IVP SCH ×4 (00:09→16:43)
[2019-06-02] MEDS: SODIUM CHLORIDE FLUSH 0.9% 10 ML SYRINGE IVP SCH ×3 (00:10→16:43)
[2019-06-02] MEDS: AMPICILLIN/SULBACTAM 1.5 GM in SODIUM CHLORIDE 0.9% MINIBAG 100 ML IV SCH ×4 (00:10→18:37)
[2019-06-02 05:07] LABS: BASOPHILS % (AUTO) 0.3 %; EOSINOPHILS # (AUTO) 0.2 10^3/uL (0.0-0.7); EOSINOPHILS % (AUTO) 1.6 %; HGB - HEMOGLOBIN 15.4 g/dL (14.0-18.0); LYMPHOCYTES % (AUTO) 8.8 %; MEAN CORPUSCULAR HEMOGLOBIN 28.2 pg (27.0-31.0); MEAN CORPUSCULAR HGB CONC 31.2 g/dL (32.0-36.0); MEAN CORPUSCULAR VOLUME 90.3 fL (80.0-94.0); MEAN PLATELET VOLUME 12.6 fL (7.4-11.4); MONOCYTES # (AUTO) 0.8 10^3/uL (0.0-1.0); MONOCYTES % (AUTO) 7.3 %; NEUTROPHILS # (AUTO) 8.9 10^3/uL (1.5-6.6); NEUTROPHILS % (AUTO) 81.4 %; PLT - PLATELET COUNT 221 10^3/uL (130-450); RED BLOOD COUNT 5.47 10^6/uL (4.70-6.10); RED CELL DISTRIBUTION WIDTH 16.5 % (12.0-15.0); WHITE BLOOD COUNT 10.9 x10^3/uL (4.8-10.8)
[2019-06-02 05:12] LABS: INR 1.4 (0.8-1.2); PT - PROTHROMBIN TIME 15.3 secs (9.9-12.6)
[2019-06-02 05:14] LABS: CALCIUM 8.5 mg/dL (8.5-10.3); CREATININE 1.6 mg/dL (0.6-1.2)
[2019-06-02] MEDS: DEXTROSE 5%-0.45% NACL 1,000 ML IV SCH (05:53)
[2019-06-02] MEDS ORDERED: METOPROLOL 5 MG/5 ML VIAL IVP SCH (06:00)
[2019-06-02] MEDS: LEVOTHYROXINE 100 MCG TABLET PO SCH (06:06)
--- NOTE | 2019-06-02 07:26 | PROVIDER PROGRESS NOTE ---
Assessment/Plan - Problem List (1) Cerebrovascular accident (CVA) Qualifiers: CVA mechanism: thrombosis Laterality of affected vessel: right Assessment/Plan: Patient had PEG tube placed today. Tube feeds ordered and in process. Physical therapy working with patient. Patient's oral medications resumed. Case management is working on placement. (2) Dysphagia Qualifiers: Dysphagia type: unspecified Qualified Code(s): R13.10 - Dysphagia, unspecified Assessment/Plan: PEG tube placed today. Tube feeding ordered. (3) Aspiration pneumonia Assessment/Plan: Will discontinue Unasyn today. Patient would have completed 5 days of treatment. Patient has been afebrile for the past 3 days. Patient's white blood cell count has normalized. (4) Atrial fibrillation with rapid ventricular response Assessment/Plan: Patient had an episode of RVR this morning which required administration of an extra dose of metoprolol and diltiazem. Patient responded well to the medication. A PEG tube was placed today. As a result we will resume patient's Coreg. (6) Hypothyroidism Assessment/Plan: On Synthroid 100 mcg daily (7) Hypertension Qualifiers: Hypertension type: essential hypertension Qualified Code(s): I10 - Essential (primary) hypertension Assessment/Plan: Continue patient's current medications Coreg 12.5 mg via feeding tube twice daily. Lisinopril daily. Hydralazine as needed. (8) Left ventricular dysfunction with reduced left ventricular function Assessment/Plan: Continue current treatment - Current Meds Current Meds: Current Medications Generic Name Dose Route Start Last Admin Trade Name Freq PRN Reason Stop Dose Admin Acetaminophen 650 mg 05/25/19 19:23 05/28/19 10:32 Tylenol PO 650 mg Q4HR PRN Administration Pain 1 to 4 Aspirin 300 mg 05/30/19 10:00 06/01/19 09:03 [place] 300 mg DAILY LUIS Administration Atorvastatin Calcium 80 mg 05/25/19 21:00 06/01/19 20:37 Lipitor PO Not Given QPM LUIS Carvedilol 12.5 mg 05/31/19 21:00 06/01/19 20:37 Coreg PO Not Given BID [facility] [place] Docusate Sodium 250 - 500 mg 05/26/19 09:00 06/01/19 08:12 Colace 250mg Capsule PO Not Given DAILY [facility] Heparin Sodium (Porcine) 5,000 unit 05/25/19 21:00 06/01/19 20:35 SUBQ 5,000 unit BID LUIS Administration Hydralazine HCl 10 mg 05/29/19 11:01 05/31/19 09:15 Apresoline Inj IVP 10 mg QID PRN Administration Hypertensive Emergency Ampicillin Sodium/Sulbactam 100 mls @ 200 mls/hr 05/29/19 12:30 06/02/19 06:45 Sodium 1.5 gm/ Sodium Chloride IV Infused Q6HR LUIS Infusion Dextrose/Sodium Chloride 1,000 mls @ 100 mls/hr 06/01/19 08:48 06/02/19 06:45 D5.45ns IV 100 mls/hr .Q10H LUIS Infusion Levothyroxine Sodium 100 mcg 05/26/19 07:00 06/02/19 06:06 Synthroid PO Not Given QDAC LUIS Lisinopril 30 mg 05/30/19 09:00 06/01/19 09:11 Zestril PO Not Given DAILY [facility] Metoprolol Tartrate 5 mg 05/30/19 12:00 06/02/19 04:07 Lopressor Inj IVP 5 mg Q6HR LUIS Administration Metoprolol Tartrate 10 mg 06/02/19 06:00 06/02/19 05:33 Lopressor Inj IVP 06/02/19 10:00 10 mg ONCE LUIS Administration Mineral Oil 1 applic 05/26/19 01:27 05/27/19 19:02 Cavilon TOP 1 applic PRN PRN Administration Skin Care Polyethylene Glycol 17 gm 05/26/19 09:00 06/01/19 08:13 Miralax PO Not Given DAILY [facility] Senna 8.6 - 17.2 mg 05/26/19 09:00 06/01/19 09:11 Senokot PO Not Given DAILY [facility] Sodium Chloride 10 ml 05/25/19 19:23 06/01/19 05:16 Normal Saline Flush 0.9% IVP 10 ml PRN PRN Administration NEEDED PER PROVIDER ORDERS Sodium Chloride 10 ml 05/26/19 01:00 06/02/19 00:10 Normal Saline Flush 0.9% IVP 10 ml 0100,0900,1700 LUIS Administration Tamsulosin HCl 0.4 mg 05/26/19 08:34 06/01/19 09:11 Flomax PO Not Given DAILY [facility] - Lab Result Fish Bone Diagrams: 06/02/19 04:38 06/02/19 04:38 - Additional Planning Condition/Complexity: Stable My Orders: My Active Orders 06/01/19 08:48 Dextrose 5%-0.45% NaCl [D5.45ns] 1,000 ml IV 100 mls/hr 06/01/19 08:50 NPO except Meds [DIET] 06/02/19 07:18 General Surgery Consult [CONS] Routine Time Spent: 15-30 minutes Subjective - Subjective Patient Reports: Other (Patient seen and examined this morning. He was awake at time of the exam. He denied any new complaints today.) Objective Vital Signs: Vital Signs - 24 hr 06/01/19 06/01/19 06/01/19 07:40 11:56 12:58 Temperature 36.6 C 36.5 C Heart Rate [ Brachial] Heart Rate [ 56 L 72 Monitoring electrodes] Respiratory 14 16 Rate Blood Pressure 136/99 H Blood Pressure [Left Brachial artery] Blood Pressure 142/99 H 143/95 H [Right Brachial artery] O2 Saturation 98 98 06/01/19 06/01/19 06/01/19 13:04 13:18 13:34 Temperature Heart Rate [ Brachial] Heart Rate [ 93 81 83 Monitoring electrodes] Respiratory Rate Blood Pressure Blood Pressure [Left Brachial artery] Blood Pressure 149/103 H 134/94 H 154/99 H [Right Brachial artery] O2 Saturation 06/01/19 06/01/19 06/01/19 15:48 17:56 21:00 Temperature 35.6 C L 36.6 C Heart Rate [ Brachial] Heart Rate [ 93 95 Monitoring electrodes] Respiratory 16 18 Rate Blood Pressure 155/116 H Blood Pressure [Left Brachial artery] Blood Pressure 145/108 H 172/129 H [Right Brachial artery] O2 Saturation 99 96 06/01/19 06/01/19 06/02/19 21:46 23:54 00:09 Temperature 37.3 C Heart Rate [ 98 Brachial] Heart Rate [ 60 Monitoring electrodes] Respiratory 18 Rate Blood Pressure 164/122 H Blood Pressure 164/122 H [Left Brachial artery] Blood Pressure 158/100 H [Right Brachial artery] O2 Saturation 97 06/02/19 06/02/19 06/02/19 01:18 04:07 05:00 Temperature 37.2 C Heart Rate [ 84 Brachial] Heart Rate [ 99 Monitoring electrodes] Respiratory 20 Rate Blood Pressure 163/126 H Blood Pressure 159/102 H [Left Brachial artery] Blood Pressure 168/128 H [Right Brachial artery] O2 Saturation 94 06/02/19 06/02/19 06/02/19 05:33 05:51 06:01 Temperature Heart Rate [ 110 H Brachial] Heart Rate [ Monitoring electrodes] Respiratory Rate Blood Pressure 170/120 H Blood Pressure [Left Brachial artery] Blood Pressure 163/107 H 166/103 H [Right Brachial artery] O2 Saturation 06/02/19 06:02 Temperature Heart Rate [ Brachial] Heart Rate [ Monitoring electrodes] Respiratory Rate Blood Pressure Blood Pressure [Left Brachial artery] Blood Pressure 156/112 H [Right Brachial artery] O2 Saturation Oxygen O2 Source Room air I&O (Last 24 Hrs): Intake and Output Totals x24h 05/31/19 06/01/19 06/02/19 23:59 23:59 23:59 Intake Total 2540 1295 1061.667 Output Total 825 800 475 Balance 1715 495 586.667 General: Alert, Oriented x3, No acute distress HEENT: Atraumatic, PERRLA, EOMI Neck: Supple, No JVD Neuro: Alert, Focal Deficits (left hemiparesis, dysphagia) Cardiovascular: Other (irregularly irregular tachycardia) Respiratory: Chest non-tender, No respiratory distress, Breath sounds nml Abdomen: Normal bowel sounds, Soft, No tenderness Extremities: No clubbing, No cyanosis, No edema Skin: No rashes - Results Results: Laboratory Results WBC 10.9 x10^3/uL (4.8-10.8) H 06/02/19 04:38 RBC 5.47 10^6/uL (4.70-6.10) 06/02/19 04:38 Hgb 15.4 g/dL (14.0-18.0) 06/02/19 04:38 Hct 49.4 % (42.0-52.0) 06/02/19 04:38 MCV 90.3 fL (80.0-94.0) 06/02/19 04:38 MCH 28.2 pg (27.0-31.0) 06/02/19 04:38 MCHC 31.2 g/dL (32.0-36.0) L 06/02/19 04:38 RDW 16.5 % (12.0-15.0) H 06/02/19 04:38 Plt Count 221 10^3/uL (130-450) 06/02/19 04:38 MPV 12.6 fL (7.4-11.4) H 06/02/19 04:38 Neut # (Auto) 8.9 10^3/uL (1.5-6.6) H 06/02/19 04:38 Lymph # (Auto) 1.0 10^3/uL (1.5-3.5) L 06/02/19 04:38 [place] # (Auto) 0.8 10^3/uL (0.0-1.0) 06/02/19 04:38 Eos # (Auto) 0.2 10^3/uL (0.0-0.7) 06/02/19 04:38 Baso # (Auto) 0.0 10^3/uL (0.0-0.1) 06/02/19 04:38 Absolute Nucleated RBC 0.00 x10^3/uL 06/02/19 04:38 Nucleated RBC % 0.0 /100WBC 06/02/19 04:38 PT 15.3 secs (9.9-12.6) H 06/02/19 04:38 INR 1.4 (0.8-1.2) H 06/02/19 04:38 APTT 28.4 secs (24.9-33.3) 05/25/19 17:25 Anti-Xa Level 0.0 U/mL (-0.7) 05/25/19 17:25 Sodium 142 mmol/L (135-145) 06/02/19 04:38 Potassium 3.4 mmol/L (3.5-5.0) L 06/02/19 04:38 Chloride 111 mmol/L (101-111) 06/02/19 04:38 Carbon Dioxide 20 mmol/L (21-32) L 06/02/19 04:38 Anion Gap 11.0 (6-13) 06/02/19 04:38 BUN 30 mg/dL (6-20) H 06/02/19 04:38 Creatinine 1.6 mg/dL (0.6-1.2) H 06/02/19 04:38 Estimated GFR (MDRD) 43 (>89) L 06/02/19 04:38 Glucose 109 mg/dL (70-100) H 06/02/19 04:38 POC Whole Bld Glucose 101 mg/dL (70 - 100) H 06/02/19 05:17 Glycated Hemoglobin 5.3 % (4.6-6.2) 05/26/19 05:03 Estim Average Glucose 105 (70-100) H 05/26/19 05:03 Calcium 8.5 mg/dL (8.5-10.3) 06/02/19 04:38 Phosphorus 3.5 mg/dL (2.5-4.6) 05/28/19 04:20 Magnesium 2.3 mg/dL (1.7-2.8) 05/31/19 05:18 Total Bilirubin 2.1 mg/dL (0.2-1.0) H 05/25/19 17:25 AST 19 IU/L (10-42) 05/25/19 17:25 ALT 15 IU/L (10-60) 05/25/19 17:25 Alkaline Phosphatase 55 IU/L (42-121) 05/25/19 17:25 Troponin I High Sens 134.5 ng/L (2.3-19.7) H* 05/25/19 21:05 B-Natriuretic Peptide 471 pg/mL (5-100) H 05/30/19 04:40 Total Protein 7.6 g/dL (6.7-8.2) 05/25/19 17:25 Albumin 3.9 g/dL (3.2-5.5) 05/25/19 17:25 Globulin 3.7 g/dL (2.1-4.2) 05/25/19 17:25 Albumin/Globulin Ratio 1.1 (1.0-2.2) 05/25/19 17:25 Triglycerides 70 mg/dL (-149) 05/26/19 05:03 Cholesterol 191 mg/dL (-199) 05/26/19 05:03 LDL Cholesterol, Calc 139 mg/dL (-129) H 05/26/19 05:03 VLDL Cholesterol 14 mg/dL 05/26/19 05:03 HDL Cholesterol 38 mg/dL (60-) L 05/26/19 05:03 LDL/HDL Ratio 3.7 (<3.6) 05/26/19 05:03 Cholesterol/HDL Ratio 5.0 (<5.0) 05/26/19 05:03 Lipase 23 U/L (22-51) 05/25/19 17:25 TSH 9.51 uIU/mL (0.34-5.60) H 05/26/19 05:03 Free T4 0.68 ng/dL (0.58-1.64) 05/30/19 04:40 Urine Color YELLOW 05/25/19 19:15 Urine Clarity CLEAR (CLEAR) 05/25/19 19:15 Urine pH 6.0 PH (5.0-7.5) 05/25/19 19:15 Ur Specific [place] >=1.030 (1.002-1.030) H 05/25/19 19:15 Urine Protein 100 mg/dL (NEGATIVE) H 05/25/19 19:15 Urine Glucose (UA) NEGATIVE mg/dL (NEGATIVE) 05/25/19 19:15 Urine Ketones TRACE mg/dL (NEGATIVE) 05/25/19 19:15 Urine Occult Blood SMALL (NEGATIVE) H 05/25/19 19:15 Urine Nitrite NEGATIVE (NEGATIVE) 05/25/19 19:15 Urine Bilirubin NEGATIVE (NEGATIVE) 05/25/19 19:15 Urine Urobilinogen 0.2 (NORMAL) E.U./dL (NORMAL) 05/25/19 19:15 Ur Leukocyte Esterase NEGATIVE (NEGATIVE) 05/25/19 19:15 Urine RBC 0-5 /HPF (0-5) 05/25/19 19:15 Urine WBC 0-3 /HPF (0-3) 05/25/19 19:15 Ur Squamous Epith Cells RARE Squamous (<= Few) 05/25/19 19:15 Urine Bacteria Rare /HPF (None Seen) 05/25/19 19:15 Ur Microscopic Review INDICATED 05/25/19 19:15 Urine Culture Comments NOT INDICATED 05/25/19 19:15 Coronavirus (PCR) NEGATIVE 05/28/19 10:26 ABX Reporting Has patient been on IV antibiotics over the past 48 hours?: Yes
[2019-06-02] MEDS ORDERED: DEXTROSE 5%-0.45% NACL 1,000 ML IV SCH (07:37)
[2019-06-02] MEDS ORDERED: DILTIAZEM 50 MG/10 ML VIAL IVP ONE (08:00)
[2019-06-02] MEDS: HEPARIN 5,000 UNIT/ML VIAL SUBQ SCH ×2 (08:32→21:36)
[2019-06-02] MEDS: POTASSIUM CHLOR 10 MEQ/100 ML 10 MEQ/100 ML BAG IV SCH ×4 (08:49→16:35)
--- NOTE | 2019-06-02 10:14 | CONSULTATION NOTE ---
Referring Provider Consult Date: 06/02/19 Chief Complaint - Chief Complaint Chief Complaint: request for PEG tube placement History of Present Illness - Admitted From Admitted From:: ED - History Obtained From Records Reviewed: medical records History obtained from: medical records, the hospitalist, the RN, the patient's brother, the patien Exam Limitations: recent CVA - History of Present Illness HPI Comment/Other: This is a 69-year-old male who was recently admitted for CVA who has significant new onset dysphagia and has failed his swallow studies and a PEG tube placement was requested. Admission history: Patient has a past medical history significant for atrial fibrillation, hypertension, hypothyroidism, chronic kidney disease stage III, prior history of stroke who presents today complaining of left-sided weakness that began yesterday at 10 PM. He states he is a prior history of stroke about 10 years ago but has no residual deficits from that. At baseline, he ambulates on his own without a cane or walker. He states his symptoms have not improved today and that is why he sought medical attention. He reports feeling weak in his left arm and left leg. He is unable to move his left upper extremity except for squeezing his hand. He is barely able to lift his left leg off of the bed. He states he kept on falling at home because of the weakness. He reports no headache, blurry vision, numbness. He reports no right-sided weakness. He denies any chest pain, dyspnea. He states he does have hypertension and he is on antihypertensives but he did not take them today. States he is also on Coumadin but he is not always compliant with the medication. A family friend told the emergency department provider that his prescription for warfarin had a full bottle still. She also told the emergency department provider that he has not been himself this past few weeks and that he appears depressed. History - Past Medical History Cardiovascular: reports: Hypertension, Atrial fibrillation Respiratory: reports: Pneumonia Neuro: reports: CVA Endocrine/Autoimmune: reports: HyPOthyroidism : reports: Renal insuffiency Psych: reports: Depression Musculoskeletal: reports: Osteoarthritis, Hemiplegia (lefet), Gout, Fatigue MRSA Hx?: No Other Past Medical History: Renal insufficiency. LE edema w/rubor, mid tibial area to ankles, B LE's (L>R). - Family & Social History Family History: Mother: , Father: , Brother: Family History Comment/Other: He does not recall any family history to his knowledge. He reports both of his parents are . Living arrangement: At home Living Situation: Alone Social History Notes: He lives at home alone. 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 He also denies alcohol use. - Substance History Use: Uses substance without health or social issues: NONE - POLST Patient has POLST: No Meds/Allgy - Home Medications Home Medications: Ambulatory Orders Medication Instructions Recorded Confirmed Amlodipine Besylate 10 mg PO DAILY 01/18/15 01/18/15 lisinopriL [Lisinopril] 20 mg PO DAILY 01/18/15 05/25/19 Carvedilol 12.5 mg PO DAILY 05/25/19 05/25/19 Furosemide 40 mg PO DAILY 05/25/19 05/25/19 Levothyroxine [Synthroid] 100 mcg PO DAILY 05/25/19 05/25/19 Warfarin Sodium 5 mg PO DAILY 05/25/19 05/25/19 amLODIPine [Norvasc] 10 mg PO DAILY 05/25/19 05/25/19 - Allergies Allergies/Adverse Reactions: Allergies Allergy/AdvReac Type Severity Reaction Status Date / Time erythromycin base Allergy Unknown Verified 05/25/19 17:32 Review of Systems - Constitutional Constitutional: denies: Fever, Chills - Cardiovascular Cariovascular: reports: Irregular heart rate - Neurological Neurological: reports: General weakness, Focal weakness, Other (dysphagia, difficult to understand) - All Other Systems All Other Systems: reports: Other (all others unobtainable at this time) Exam - Vital Signs Reviewed Vital Signs: Yes Vital Signs: Vital Signs x48h Temp Pulse Pulse Resp BP BP BP 06/02/19 08:14 105 H 154/109 H 06/02/19 08:00 36.2 C L 120 H 24 151/128 H 06/02/19 06:02 156/112 H 06/02/19 06:01 166/103 H 06/02/19 05:51 110 H 163/107 H 06/02/19 05:33 170/120 H 06/02/19 05:00 37.2 C 99 20 168/128 H 06/02/19 04:07 163/126 H Pulse Ox 06/02/19 08:14 06/02/19 08:00 98 06/02/19 06:02 06/02/19 06:01 06/02/19 05:51 06/02/19 05:33 06/02/19 05:00 94 06/02/19 04:07 - Physical Exam General Appearance: positive: No acute distress (sitting in bed reading the news paper, minimal interaction, some eye contact, some yes no answers, patient without a gown on, RN states he won't leave it on) Eyes Bilateral: positive: Normal inspection Respiratory: positive: No respiratory distress Cardiovascular: positive: Irregularly irregular Skin: positive: Color nml, No rash Neurologic/Psychiatric: positive: Weakness, Slurred/abnml speech Conclusion and Plan - Lab Results Laboratory Results 06/02/19 05:17: POC Whole Bld Glucose 101 H 06/02/19 04:38: Magnesium 2.5 06/02/19 04:38: WBC 10.9 H, RBC 5.47, Hgb 15.4, Hct 49.4, MCV 90.3, MCH 28.2, MCHC 31.2 L, RDW 16.5 H, Plt Count 221, MPV 12.6 H, Neut # (Auto) 8.9 H, Lymph # (Auto) 1.0 L, [place] # (Auto) 0.8, Eos # (Auto) 0.2, Baso # (Auto) 0.0, Absolute Nucleated RBC 0.00, Nucleated RBC % 0.0 06/02/19 04:38: PT 15.3 H, INR 1.4 H 06/02/19 04:38: Sodium 142, Potassium 3.4 L, Chloride 111, Carbon Dioxide 20 L, Anion Gap 11.0, BUN 30 H, Creatinine 1.6 H, Estimated GFR (MDRD) 43 L, Glucose 109 H, Calcium 8.5 06/01/19 23:39: POC Whole Bld Glucose 91 06/01/19 17:46: POC Whole Bld Glucose 88 06/01/19 11:35: POC Whole Bld Glucose 105 H 06/01/19 07:29: POC Whole Bld Glucose 76 06/01/19 04:47: WBC 10.8, RBC 5.01, Hgb 14.3, Hct 45.3, MCV 90.4, MCH 28.5, MCHC 31.6 L, RDW 16.0 H, Plt Count 219, MPV 11.7 H, Neut # (Auto) 8.8 H, Lymph # (Auto) 0.9 L, [place] # (Auto) 0.9, Eos # (Auto) 0.1, Baso # (Auto) 0.0, Absolute Nucleated RBC 0.00, Nucleated RBC % 0.0 06/01/19 04:47: PT 15.5 H, INR 1.4 H 06/01/19 04:47: Sodium 141, Potassium 3.5, Chloride 112 H, Carbon Dioxide 19 L, Anion Gap 10.0, BUN 35 H, Creatinine 1.7 H, Estimated GFR (MDRD) 40 L, Glucose 91, Calcium 8.3 L 05/31/19 20:43: POC Whole Bld Glucose 94 05/31/19 16:40: POC Whole Bld Glucose 82 05/31/19 11:38: POC Whole Bld Glucose 101 H - Diagnosis Diagnosis: CVA with dysphagia and risk of aspiration - Plan Plan: Discussion with the patient and his brother Ryan Prince (Dusty) was held. We discussed the indications for the placement of a feeding tube, the options for placement endoscopically, laparoscopically and open surgically. We went through the steps of each and the risk, benefits, and short term and half-way complications of each option. They understand the tube will hopefully serve as a bridge until he can have his full swallowing function return and then it can be removed, but if not it can stay on a more permanent basis with watermelon harvesting supervisor care. They were interested in the PEG tube placement. Indications, alternatives, risks and potential complications of the endoscopy placed feeding tube including but not limited to bleeding, infection, incomplete exam, perforation of the esophagus or bowel requiring hospitalization or emergency surgery, placement of the tube with injury to another portion of the bowel such as the transverse colon and possible need for further surgery to repair, the tube being dislodge or removed in the early and late time frames and possible surgery needed to repair, follow-up exams, as well as anesthetic complications including fall in blood pressure, fall in heart rate, fall in respirations/oxygen saturation and were explained to the patient and his brother. The patient and his brother understands and accepts these risks. Any and all questions were answered to the their satisfaction. Informed consent was obtained. The patient's RN was present and witnessed the discussion and consent while speaking with the brother on the phone.
--- NOTE | 2019-06-02 10:32 | ANESTHESIA ---
Pre-Anesthesia VS, & Labs - Diagnosis Diagnosis CVA with dysphagia and risk of aspiration - Procedure Placement of PEG tube Vital Signs: Temp Pulse Resp BP Pulse Ox 36.2 C L 105 H 24 154/109 H 98 06/02/19 08:00 06/02/19 08:14 06/02/19 08:00 06/02/19 08:14 06/02/19 08:00 Height 5 ft 9 in Weight (kg) 113.398 kg Body Mass Index 36.9 - NPO >8 hours - Lab Results Current Lab Results: Laboratory Tests 06/02/19 05:17: POC Whole Bld Glucose 101 H 06/02/19 04:38: Magnesium 2.5 06/02/19 04:38: WBC 10.9 H, RBC 5.47, Hgb 15.4, Hct 49.4, MCV 90.3, MCH 28.2, M CHC 31.2 L, RDW 16.5 H, Plt Count 221, MPV 12.6 H, Neut # (Auto) 8.9 H, Lymph # (Auto) 1.0 L, [place] # (Auto) 0.8, Eos # (Auto) 0.2, Baso # (Auto) 0.0, Absolute Nucleated RBC 0.00, Nucleated RBC % 0.0 06/02/19 04:38: PT 15.3 H, INR 1.4 H 06/02/19 04:38: Sodium 142, Potassium 3.4 L, Chloride 111, Carbon Dioxide 20 L, Anion Gap 11.0, BUN 30 H, Creatinine 1.6 H, Estimated GFR (MDRD) 43 L, Glucose 109 H, Calcium 8.5 06/01/19 23:39: POC Whole Bld Glucose 91 06/01/19 17:46: POC Whole Bld Glucose 88 06/01/19 11:35: POC Whole Bld Glucose 105 H 06/01/19 07:29: POC Whole Bld Glucose 76 06/01/19 04:47: WBC 10.8, RBC 5.01, Hgb 14.3, Hct 45.3, MCV 90.4, MCH 28.5, MCHC 31.6 L, RDW 16.0 H, Plt Count 219, MPV 11.7 H, Neut # (Auto) 8.8 H, Lymph # (Auto) 0.9 L, [place] # (Auto) 0.9, Eos # (Auto) 0.1, Baso # (Auto) 0.0, Absolute Nucleated RBC 0.00, Nucleated RBC % 0.0 06/01/19 04:47: PT 15.5 H, INR 1.4 H 06/01/19 04:47: Sodium 141, Potassium 3.5, Chloride 112 H, Carbon Dioxide 19 L, Anion Gap 10.0, BUN 35 H, Creatinine 1.7 H, Estimated GFR (MDRD) 40 L, Glucose 91, Calcium 8.3 L 05/31/19 20:43: POC Whole Bld Glucose 94 05/31/19 16:40: POC Whole Bld Glucose 82 05/31/19 11:38: POC Whole Bld Glucose 101 H 05/31/19 07:51: POC Whole Bld Glucose 105 H 05/31/19 05:18: WBC 11.4 H, RBC 5.14, Hgb 14.9, Hct 46.6, MCV 90.7, MCH 29.0, MCHC 32.0, RDW 15.7 H, Plt Count 210, MPV 12.0 H, Neut # (Auto) 9.4 H, Lymph # (Auto) 0.7 L, [place] # (Auto) 1.1 H, Eos # (Auto) 0.1, Baso # (Auto) 0.0, Absolute Nucleated RBC 0.00, Nucleated RBC % 0.0 05/31/19 05:18: PT 16.0 H, INR 1.4 H 05/31/19 05:18: Sodium 141, Potassium 3.6, Chloride 112 H, Carbon Dioxide 20 L, Anion Gap 9.0, BUN 28 H, Creatinine 1.6 H, Estimated GFR (MDRD) 43 L, Glucose 100, Calcium 8.5, Magnesium 2.3 05/30/19 19:28: POC Whole Bld Glucose 93 05/30/19 16:28: POC Whole Bld Glucose 89 05/30/19 11:17: POC Whole Bld Glucose 81 05/30/19 07:21: POC Whole Bld Glucose 99 05/30/19 04:40: PT 15.5 H, INR 1.4 H 05/30/19 04:40: Sodium 144, Potassium 3.6, Chloride 112 H, Carbon Dioxide 23, Anion Gap 9.0, BUN 37 H, Creatinine 2.0 H, Estimated GFR (MDRD) 33 L, Glucose 104 H, Calcium 8.6 05/30/19 04:40: B-Natriuretic Peptide 471 H 05/30/19 04:40: Free T4 0.68 05/30/19 04:40: WBC 12.0 H, RBC 5.01, Hgb 14.5, Hct 45.6, MCV 91.0, MCH 28.9, MC HC 31.8 L, RDW 15.8 H, Plt Count 200, MPV 12.9 H, Neut # (Auto) 10.0 H, Lymph # (Auto) 0.8 L, [place] # (Auto) 1.0, Eos # (Auto) 0.1, Baso # (Auto) 0.0, Absolute Nucleated RBC 0.00, Nucleated RBC % 0.0 05/29/19 20:48: POC Whole Bld Glucose 94 05/29/19 16:47: POC Whole Bld Glucose 97 05/29/19 11:13: POC Whole Bld Glucose 86 05/29/19 08:20: PT 16.4 H, INR 1.5 H 05/29/19 07:26: POC Whole Bld Glucose 88 05/29/19 04:15: Sodium 141, Potassium 3.2 L, Chloride 111, Carbon Dioxide 23, Anion Gap 7.0, BUN 37 H, Creatinine 2.2 H, Estimated GFR (MDRD) 30 L, Glucose 101 H, Calcium 7.9 L 05/29/19 04:15: WBC 14.0 H, RBC 4.98, Hgb 14.4, Hct 45.3, MCV 91.0, MCH 28.9, MCHC 31.8 L, RDW 15.7 H, Plt Count 178, MPV 12.5 H, Neut # (Auto) 11.9 H, Lymph # (Auto) 0.8 L, [place] # (Auto) 1.1 H, Eos # (Auto) 0.0, Baso # (Auto) 0.0, Absolute Nucleated RBC 0.00, Nucleated RBC % 0.0 05/28/19 16:23: POC Whole Bld Glucose 109 H 05/28/19 12:22: POC Whole Bld Glucose 107 H 05/28/19 07:37: POC Whole Bld Glucose 99 05/28/19 04:20: Sodium 141, Potassium 3.5, Chloride 108, Carbon Dioxide 24, Anion Gap 9.0, BUN 35 H, Creatinine 2.0 H, Estimated GFR (MDRD) 33 L, Glucose 117 H, Calcium 8.7, Phosphorus 3.5, Magnesium 2.4 05/28/19 04:20: WBC 13.2 H, RBC 5.20, Hgb 15.1, Hct 47.2, MCV 90.8, MCH 29.0, MCHC 32.0, RDW 15.4 H, Plt Count 192, MPV 11.6 H, Neut # (Auto) 11.3 H, Lymph # (Auto) 0.7 L, [place] # (Auto) 1.1 H, Eos # (Auto) 0.0, Baso # (Auto) 0.0, Absolute Nucleated RBC 0.00, Nucleated RBC % 0.0 05/27/19 20:34: POC Whole Bld Glucose 115 H 05/27/19 16:33: POC Whole Bld Glucose 121 H 05/27/19 11:01: POC Whole Bld Glucose 118 H 05/27/19 07:35: POC Whole Bld Glucose 98 05/27/19 05:28: Sodium 140, Potassium 3.6, Chloride 110, Carbon Dioxide 23, Anion Gap 7.0, BUN 33 H, Creatinine 2.0 H, Estimated GFR (MDRD) 33 L, Glucose 111 H, Calcium 9.0, Phosphorus 3.1, Magnesium 2.4 05/27/19 05:28: WBC 8.7, RBC 5.19, Hgb 15.2, Hct 46.7, MCV 90.0, MCH 29.3, MCHC 32.5, RDW 15.3 H, Plt Count 219, MPV 12.0 H, Neut # (Auto) 7.2 H, Lymph # (Auto) 0.8 L, [place] # (Auto) 0.6, Eos # (Auto) 0.1, Baso # (Auto) 0.0, Absolute Nucleated RBC 0.00, Nucleated RBC % 0.0 05/26/19 20:32: POC Whole Bld Glucose 97 05/26/19 16:39: POC Whole Bld Glucose 86 05/26/19 11:50: POC Whole Bld Glucose 114 H 05/26/19 07:03: POC Whole Bld Glucose 87 05/26/19 05:03: TSH 9.51 H 05/26/19 05:03: Sodium 140, Potassium 3.3 L, Chloride 106, Carbon Dioxide 24, Anion Gap 10.0, BUN 34 H, Creatinine 1.8 H, Estimated GFR (MDRD) 37 L, Glucose 94, Calcium 9.0, Phosphorus 4.2, Magnesium 2.5, Triglycerides 70, Cholesterol 191, LDL Cholesterol, Calc 139 H, VLDL Cholesterol 14, HDL Cholesterol 38 L, LDL/HDL Ratio 3.7, Cholesterol/HDL Ratio 5.0 05/26/19 05:03: Glycated Hemoglobin 5.3, Estim Average Glucose 105 H 05/26/19 05:03: PT 13.5 H, INR 1.2 05/26/19 05:03: WBC 7.5, RBC 5.74, Hgb 16.3, Hct 50.9, MCV 88.7, MCH 28.4, MCHC 32.0, RDW 16.0 H, Plt Count 240, MPV 11.5 H, Neut # (Auto) 5.7, Lymph # (Auto) 1.2 L, [place] # (Auto) 0.5, Eos # (Auto) 0.1, Baso # (Auto) 0.0, Absolute Nucleated RBC 0.00, Nucleated RBC % 0.0 05/26/19 01:11: POC Whole Bld Glucose 106 H 05/25/19 21:23: POC Whole Bld Glucose 84 05/25/19 21:21: POC Whole Bld Glucose 58 L* 05/25/19 21:05: Troponin I High Sens 134.5 H* 05/25/19 21:00: POC Whole Bld Glucose 65 L 05/25/19 17:25: Magnesium 2.5 05/25/19 17:25: Troponin I High Sens 138.9 H* 05/25/19 17:25: Anti-Xa Level 0.0 05/25/19 17:25: PT 14.3 H, INR 1.3 H, APTT 28.4 05/25/19 17:25: Sodium 142, Potassium 3.3 L, Chloride 106, Carbon Dioxide 26, Anion Gap 10.0, BUN 33 H, Creatinine 1.9 H, Estimated GFR (MDRD) 35 L, Glucose 82, Calcium 9.1, Total Bilirubin 2.1 H, AST 19, ALT 15, Alkaline Phosphatase 55, Total Protein 7.6, Albumin 3.9, Globulin 3.7, Albumin/Globulin Ratio 1.1, Lipase 23 05/25/19 17:25: WBC 9.1, RBC 5.75, Hgb 16.6, Hct 52.1 H, MCV 90.6, MCH 28.9, MCHC 31.9 L, RDW 15.3 H, Plt Count 243, MPV 11.2, Neut # (Auto) 7.1 H, Lymph # (Auto) 1.1 L, [place] # (Auto) 0.8, Eos # (Auto) 0.1, Baso # (Auto) 0.1, Absolute Nucleated RBC 0.00, Nucleated RBC % 0.0 Fish Bones: 06/02/19 04:38 06/02/19 04:38 Home Medications and Allergies Home Medications: Ambulatory Orders Carvedilol 12.5 mg PO DAILY 05/25/19 Furosemide 40 mg PO DAILY 05/25/19 Levothyroxine [Synthroid] 100 mcg PO DAILY 05/25/19 Warfarin Sodium 5 mg PO DAILY 05/25/19 amLODIPine [Norvasc] 10 mg PO DAILY 05/25/19 Active Medications Acetaminophen (Tylenol) 650 mg PO Q4HR PRN PRN Reason: Pain 1 to 4 Last Admin: 05/28/19 10:32 Dose: 650 mg Aspirin () 300 mg TX DAILY [facility] Last Admin: 06/01/19 09:03 Dose: 300 mg Atorvastatin Calcium (Lipitor) 80 mg PO QPM [facility] Last Admin: 06/01/19 20:37 Dose: Not Given Carvedilol (Coreg) 12.5 mg PO BID [facility] Last Admin: 06/01/19 20:37 Dose: Not Given Docusate Sodium (Colace 250mg Capsule) 250 - 500 mg PO DAILY [facility] Last Admin: 06/01/19 08:12 Dose: Not Given Heparin Sodium (Porcine) () 5,000 unit SUBQ BID [facility] Last Admin: 06/02/19 08:32 Dose: Not Given Hydralazine HCl (Apresoline Inj) 10 mg IVP QID PRN PRN Reason: Hypertensive Emergency Last Admin: 05/31/19 09:15 Dose: 10 mg Ampicillin Sodium/Sulbactam (Sodium 1.5 gm/ Sodium Chloride) 100 mls @ 200 mls/hr IV Q6HR [facility] Last Infusion: 06/02/19 06:45 Dose: Infused Potassium Chloride (Potassium Chloride) 10 meq in 100 mls @ 100 mls/hr IV Q1H [facility] Stop: 06/02/19 11:59 Last Admin: 06/02/19 10:18 Dose: 100 mls/hr Dextrose/Sodium Chloride (D5.45ns) 1,000 mls @ 75 mls/hr IV .[id number] [facility] Last Admin: 06/02/19 07:56 Dose: 75 mls/hr Levothyroxine Sodium (Synthroid) 100 mcg PO QDAC [facility] Last Admin: 06/02/19 06:06 Dose: Not Given Lisinopril (Zestril) 30 mg PO DAILY [facility] Last Admin: 06/01/19 09:11 Dose: Not Given Metoprolol Tartrate (Lopressor Inj) 5 mg IVP Q6HR [facility] Last Admin: 06/02/19 04:07 Dose: 5 mg Mineral Oil (Cavilon) 1 applic TOP PRN PRN PRN Reason: Skin Care Last Admin: 05/27/19 19:02 Dose: 1 applic Polyethylene Glycol (Miralax) 17 gm PO DAILY [facility] Last Admin: 06/01/19 08:13 Dose: Not Given Senna (Senokot) 8.6 - 17.2 mg PO DAILY [facility] Last Admin: 06/01/19 09:11 Dose: Not Given Sodium Chloride (Normal Saline Flush 0.9%) 10 ml IVP PRN PRN PRN Reason: NEEDED PER PROVIDER ORDERS Last Admin: 06/01/19 05:16 Dose: 10 ml Sodium Chloride (Normal Saline Flush 0.9%) 10 ml IVP 0100,0900,1700 [facility] Last Admin: 06/02/19 10:19 Dose: 10 ml Tamsulosin HCl (Flomax) 0.4 mg PO DAILY [facility] Last Admin: 06/01/19 09:11 Dose: Not Given Amlodipine Besylate 10 mg PO DAILY 01/18/15 lisinopriL [Lisinopril] 20 mg PO DAILY 01/18/15 Carvedilol 12.5 mg PO DAILY 05/25/19 Furosemide 40 mg PO DAILY 05/25/19 Levothyroxine [Synthroid] 100 mcg PO DAILY 05/25/19 Warfarin Sodium 5 mg PO DAILY 05/25/19 amLODIPine [Norvasc] 10 mg PO DAILY 05/25/19 Allergies/Adverse Reactions: Allergies Allergy/AdvReac Type Severity Reaction Status Date / Time erythromycin base Allergy Unknown Verified 05/25/19 17:32 Anes History & Medical History - Anesthetic History Anesthesia Complications: reports: No previous complications - Medical History Cardiovascular: reports: Congestive heart failure (EF 25-30%), Hypertension, Atrial fibrillation Pulmonary: reports: Pneumonia Urinary: reports: Renal insuffiency (stage III kidney disease) Neuro: reports: CVA Musculoskeletal: reports: Osteoarthritis, Hemiplegia (lefet), Gout, Fatigue Endocrine/Autoimmune: reports: HyPOthyroidism Smoking Status: Never smoker Other Past Medical History: Renal insufficiency. LE edema w/rubor, mid tibial area to ankles, B LE's (L>R). Results - EKG Results EKG Comparison: Reviewed EKG (afib) - Echo Results Echo Results: Report reviewed Exam General: Alert, Cooperative Mouth Openin Fingerbreadth Neck Mobility: Reduced Mallampati classification: IV Thyromental Distance: 4-6 cm Respiratory: Lungs clear, Normal breath sounds, No respiratory distress, No accessory muscle use Cardiovascular: Other (irregular) Cognitive Status: Memory impairment Plan Anesthesia Type: General Consent for Procedure(s) Verified and Reviewed: Yes Code Status: Attempt Resuscitation ASA classification: 3-Severe systemic disease Is this case an emergency?: No
[2019-06-02] MEDS ORDERED: BENZOCAINE/TETRACAINE/BUTAMBEN 20 GM ONE (10:33)
[2019-06-02] MEDS ORDERED: SUGAMMADEX 500 MG/5 ML VIAL IVP ONE ×2 (10:53→17:28)
[2019-06-02] MEDS ORDERED: SODIUM CHLORIDE 0.9% 1,000 ML IV ONE (10:57)
[2019-06-02] MEDS ORDERED: LIDOCAINE 1% 50 ML MDV SUBQ ONE (11:31)
--- NOTE | 2019-06-02 13:18 | OPERATIVE REPORT ---
Operative Report - General Admit Date: 05/25/19 Pre-Op Diagnosis: CVA with aspiration and inability to protect airway Procedure Performed: Percutaneous Endoscopic Gastrostomy (PEG) Tube placement Post Op Diagnosis: same - Procedure Note Primary Surgeon: Petra Rahman MD Anesthesia Technique: General ET tube Pathology: none Estimated Blood Loss (mL): 25 Drain/Tube Type: Other (PEG tube) Indications: Stevie is a 69 WM who suffered an acute CVA and has failed his swallowing study and found to aspirate. A PEG tube placement for enteric nutrition was requested. Findings: moderate global gastritis, PEG tube secured at 2 cm at the skin Complications: none - Other Other Information/Narrative: The patient was moved into the operating room and left in the inpatient bed and placed under general anesthesia per the current hospital COVID protocol. A formal timeout was held according to the hospital regulations and agreed upon by then entire crew and the patient. The endoscope was introduced into the oropharynx and passed into the esophagus without difficulty and distally through the esophagus into the stomach. The mucosa of the oral pharynx, posterior oropharynx and vocal cords; the proximal, mid, distal esophagus, and GE junction; and the entirety stomach was circumferentially examined and then retroflexion was preformed inspecting the upper stomach and GE junction. The pylorus was identified and the scope was passed through the pylorus into the duodenum. The duodenal bulb was examined, as well as the second and third portions of the duodenum. The scope was then pulled back into the stomach and, again, retroflexion and examination of the lesser curvature and cardia and proximal body was performed. After this was accomplished, transillumination to the anterior abdominal wall was preformed and an area in the LUQ found for PEG placement was marked. The snare wire that comes with the PEG kit was placed down the scope in the usual fashion and the position confirmed with direct visualization. The anterior abdominal wall in the LUQ was then prepped and draped in a sterile fashion. The area marked local was infused and a small skin incision was made. The introducing needle and catheter were then used in the usual fshion to obtain access into the stomach under endoscopic visualization. The wire in the kit was then passed down the catheter and snared via the endoscopic snare. With the wire securely snared the scope and wired were then completely removed leaving the wire in place. The incision on the skin was enlarged and then the PEG tube was lubed and passed down over the the wire and pulled out through the anterior abdominal wall until secured against the wall at the 2 cm jeremy. The wire was removed and the phalange placed over the tube down to the skin level and secured with 3.0 nylon suture and dressings placed. The tube was cut in the usual position and the clamp and cap were placed. Once secured the endoscope was placed back down into the stomach and the position of the PEG tube confirmed and as expected. The tube was then flushed with 60 cc without issues. The stomach was then deflated and scope was once again removed without issues. The drapes were removed, all sponge, sharps, and instrument counts were correct. The patient tolerated the procedure well. The procedure was completed and the patient was extubated and recovered in the operating room per the COVID protocols. Once criteria was met he was transferred back to his inpatient room. Condition on completion was stable.
[2019-06-02] MEDS ORDERED: TAMSULOSIN 0.4 MG CAPSULE NG SCH (13:30)
--- NOTE | 2019-06-02 13:39 | PROVIDER PROGRESS NOTE ---
Subjective - General Admit Date: 05/25/19 Procedure Date: 06/02/19 Post Op Days: 0 Procedure Performed: PEG tube placement - Review of Systems Wound/Incisions: positive: Healing well All Other Systems: positive: Other (all others unobtainable at this time) Objective - Patient Data Vital Signs: Vital Signs x48h Temp Pulse Pulse Pulse Resp BP BP 06/02/19 12:43 36.3 C L 99 22 06/02/19 12:30 36.9 C 106 H 20 119/82 H 06/02/19 12:25 36.9 C 112 H 20 116/77 06/02/19 12:15 37.1 C 120 H 20 105/74 06/02/19 12:10 37.2 C 115 H 20 111/91 H 06/02/19 12:05 37.2 C 140 H 20 162/147 H 06/02/19 12:00 37.3 C 122 H 24 205/189 H 06/02/19 08:14 105 H 154/109 H 06/02/19 08:00 36.2 C L 120 H 24 151/128 H 06/02/19 06:02 06/02/19 06:01 06/02/19 05:51 110 H BP Pulse Ox 06/02/19 12:43 131/84 H 100 06/02/19 12:30 99 06/02/19 12:25 100 06/02/19 12:15 100 06/02/19 12:10 99 06/02/19 12:05 99 06/02/19 12:00 100 06/02/19 08:14 06/02/19 08:00 98 06/02/19 06:02 156/112 H 06/02/19 06:01 166/103 H 06/02/19 05:51 163/107 H Weight: Weight 05/31/19 06/01/19 06/02/19 23:59 23:59 23:59 Weight (kg) 113.398 kg Intake & Output: Intake and Output Totals x24h 05/31/19 06/01/19 06/02/19 23:59 23:59 23:59 Intake Total 2540 1295 1279.667 Output Total 825 800 475 Balance 1715 495 804.667 - Lab Results Lab Results: 06/02/19 04:38 06/02/19 04:38 Other Lab Results: Lab Results x24hrs 06/02/19 06/02/19 06/02/19 Range/Units 05:17 04:38 04:38 WBC 10.9 H (4.8-10.8) x10^3/uL RBC 5.47 (4.70-6.10) 10^6/uL Hgb 15.4 (14.0-18.0) g/dL Hct 49.4 (42.0-52.0) % MCV 90.3 (80.0-94.0) fL MCH 28.2 (27.0-31.0) pg MCHC 31.2 L (32.0-36.0) g/dL RDW 16.5 H (12.0-15.0) % Plt Count 221 (130-450) 10^3/uL MPV 12.6 H (7.4-11.4) fL Neut # (Auto) 8.9 H (1.5-6.6) 10^3/uL Lymph # (Auto) 1.0 L (1.5-3.5) 10^3/uL [facility] # (Auto) 0.8 (0.0-1.0) 10^3/uL Eos # (Auto) 0.2 (0.0-0.7) 10^3/uL Baso # (Auto) 0.0 (0.0-0.1) 10^3/uL Absolute Nucleated RBC 0.00 x10^3/uL Nucleated RBC % 0.0 /100WBC PT (9.9-12.6) secs INR (0.8-1.2) Sodium (135-145) mmol/L Potassium (3.5-5.0) mmol/L Chloride (101-111) mmol/L Carbon Dioxide (21-32) mmol/L Anion Gap (6-13) BUN (6-20) mg/dL Creatinine (0.6-1.2) mg/dL Estimated GFR (MDRD) (>89) Glucose (70-100) mg/dL POC Whole Bld Glucose 101 H (70 - 100) mg/dL Calcium (8.5-10.3) mg/dL Magnesium 2.5 (1.7-2.8) mg/dL 06/02/19 06/02/1905/31/20 Range/Units 04:38 04:38 23:39 WBC (4.8-10.8) x10^3/uL RBC (4.70-6.10) 10^6/uL Hgb (14.0-18.0) g/dL Hct (42.0-52.0) % MCV (80.0-94.0) fL MCH (27.0-31.0) pg MCHC (32.0-36.0) g/dL RDW (12.0-15.0) % Plt Count (130-450) 10^3/uL MPV (7.4-11.4) fL Neut # (Auto) (1.5-6.6) 10^3/uL Lymph # (Auto) (1.5-3.5) 10^3/uL [facility] # (Auto) (0.0-1.0) 10^3/uL Eos # (Auto) (0.0-0.7) 10^3/uL Baso # (Auto) (0.0-0.1) 10^3/uL Absolute Nucleated RBC x10^3/uL Nucleated RBC % /100WBC PT 15.3 H (9.9-12.6) secs INR 1.4 H (0.8-1.2) Sodium 142 (135-145) mmol/L Potassium 3.4 L (3.5-5.0) mmol/L Chloride 111 (101-111) mmol/L Carbon Dioxide 20 L (21-32) mmol/L Anion Gap 11.0 (6-13) BUN 30 H (6-20) mg/dL Creatinine 1.6 H (0.6-1.2) mg/dL Estimated GFR (MDRD) 43 L (>89) Glucose 109 H (70-100) mg/dL POC Whole Bld Glucose 91 (70 - 100) mg/dL Calcium 8.5 (8.5-10.3) mg/dL Magnesium (1.7-2.8) mg/dL 06/01/19 Range/Units 17:46 WBC (4.8-10.8) x10^3/uL RBC (4.70-6.10) 10^6/uL Hgb (14.0-18.0) g/dL Hct (42.0-52.0) % MCV (80.0-94.0) fL MCH (27.0-31.0) pg MCHC (32.0-36.0) g/dL RDW (12.0-15.0) % Plt Count (130-450) 10^3/uL MPV (7.4-11.4) fL Neut # (Auto) (1.5-6.6) 10^3/uL Lymph # (Auto) (1.5-3.5) 10^3/uL [facility] # (Auto) (0.0-1.0) 10^3/uL Eos # (Auto) (0.0-0.7) 10^3/uL Baso # (Auto) (0.0-0.1) 10^3/uL Absolute Nucleated RBC x10^3/uL Nucleated RBC % /100WBC PT (9.9-12.6) secs INR (0.8-1.2) Sodium (135-145) mmol/L Potassium (3.5-5.0) mmol/L Chloride (101-111) mmol/L Carbon Dioxide (21-32) mmol/L Anion Gap (6-13) BUN (6-20) mg/dL Creatinine (0.6-1.2) mg/dL Estimated GFR (MDRD) (>89) Glucose (70-100) mg/dL POC Whole Bld Glucose 88 (70 - 100) mg/dL Calcium (8.5-10.3) mg/dL Magnesium (1.7-2.8) mg/dL - Current Medications Current Medications: Current Medications Generic Name Dose Route Start Last Admin Trade Name Freq PRN Reason Stop Dose Admin Aspirin 300 mg 05/30/19 10:00 06/01/19 09:03 [place] 300 mg DAILY LUIS Administration Docusate Sodium 250 - 500 mg 05/26/19 09:00 06/01/19 08:12 Colace 250mg Capsule PO Not Given DAILY LUIS Heparin Sodium (Porcine) 5,000 unit 05/25/19 21:00 06/02/19 08:32 SUBQ Not Given BID LUIS Hydralazine HCl 10 mg 05/29/19 11:01 05/31/19 09:15 Apresoline Inj IVP 10 mg QID PRN Administration Hypertensive Emergency Ampicillin Sodium/Sulbactam 100 mls @ 200 mls/hr 05/29/19 12:30 06/02/19 06: 45 Sodium 1.5 gm/ Sodium Chloride IV Infused Q6HR LUIS Infusion Dextrose/Sodium Chloride 1,000 mls @ 75 mls/hr 06/02/19 07:37 06/02/19 07:56 D5.45ns IV 75 mls/hr .[id number] LUIS Administration Metoprolol Tartrate 5 mg 05/30/19 12:00 06/02/19 04:07 Lopressor Inj IVP 5 mg Q6HR LUIS Administration Mineral Oil 1 applic 05/26/19 01:27 05/27/19 19:02 Cavilon TOP 1 applic PRN PRN Administration Skin Care Sodium Chloride 10 ml 05/25/19 19:23 06/01/19 05:16 Normal Saline Flush 0.9% IVP 10 ml PRN PRN Administration NEEDED PER PROVIDER ORDERS Sodium Chloride 10 ml 05/26/19 01:00 06/02/19 10:19 Normal Saline Flush 0.9% IVP 10 ml 0100,0900,1700 LUIS Administration - Physical Exam Wound/Incisions: positive: Healing well Abdomen: positive: Other (PEG tube in the LUQ) Impression/Plan - Problem List Problem List: CVA s/p PEG tube placement Pt at high risk for gastritis/stress ulcer and found to have gastritis on end oscopy recommend 14 days BID PPI then continue once daily OK to use PEG tube for meds and trickle feeds for first 24 hours then as needed Will need outpatient follow up with Surgery in 2-3 weeks upon d/c to check tube function and removed sutures
[2019-06-02] MEDS: DOCUSATE SODIUM 250 MG CAPSULE PO SCH (13:42)
[2019-06-02] MEDS: carvediloL 12.5 MG TABLET NG SCH ×2 (13:58→21:37)
[2019-06-02] MEDS: lisinopriL 20 MG TABLET NG SCH (13:58)
[2019-06-02] MEDS: ASPIRIN 300 MG SUPP PR SCH (13:58)
[2019-06-02] MEDS: LEVOTHYROXINE 100 MCG TABLET NG SCH (14:06)
[2019-06-02] MEDS: SENNA 8.6 MG TABLET NG SCH (14:06)
[2019-06-02] MEDS: polyethylene glycoL 3350 17 GM PACKET NG SCH (14:07)
[2019-06-02] MEDS: LANSOPRAZOLE 15 MG CAPSULE PEG SCH ×2 (14:14→21:37)
[2019-06-02] MEDS: ACETAMINOPHEN 160 MG/5 ML SUSP UDC NG PRN (16:35)
[2019-06-02] MEDS ORDERED: PROPOFOL 200 MG/20 ML VIAL IVP ONE (17:28)
[2019-06-02] MEDS ORDERED: ROCURONIUM 50 MG/5 ML VIAL IVP ONE (17:28)
[2019-06-02] MEDS ORDERED: fentaNYL 100 MCG/2 ML VIAL IVP ONE (17:28)
[2019-06-02] MEDS ORDERED: NEOSTIGMINE 1 MG/1 ML 10 ML MDV IVP ONE (17:28)
[2019-06-02] MEDS: ATORVASTATIN 40 MG TABLET NG SCH (21:36)
[2019-06-02] MEDS: DOXAZOSIN 4 MG TABLET PEG SCH (21:36)
[2019-06-03] MEDS: SODIUM CHLORIDE FLUSH 0.9% 10 ML SYRINGE IVP SCH ×3 (00:33→15:53)
[2019-06-03] MEDS: AMPICILLIN/SULBACTAM 1.5 GM in SODIUM CHLORIDE 0.9% MINIBAG 100 ML IV SCH ×2 (00:33→05:53)
[2019-06-03] MEDS: METOPROLOL 5 MG/5 ML VIAL IVP SCH ×2 (00:37→06:12)
[2019-06-03] MEDS: ACETAMINOPHEN 160 MG/5 ML SUSP UDC NG PRN ×2 (00:53→15:53)
[2019-06-03] MEDS: SODIUM CHLORIDE FLUSH 0.9% 10 ML SYRINGE IVP PRN ×3 (01:05→06:33)
[2019-06-03 05:51] LABS: BASOPHILS % (AUTO) 0.3 %; EOSINOPHILS # (AUTO) 0.2 10^3/uL (0.0-0.7); EOSINOPHILS % (AUTO) 1.7 %; HGB - HEMOGLOBIN 13.9 g/dL (14.0-18.0); LYMPHOCYTES % (AUTO) 10.8 %; MEAN CORPUSCULAR HEMOGLOBIN 29.3 pg (27.0-31.0); MEAN CORPUSCULAR HGB CONC 32.1 g/dL (32.0-36.0); MEAN CORPUSCULAR VOLUME 91.4 fL (80.0-94.0); MEAN PLATELET VOLUME 11.3 fL (7.4-11.4); MONOCYTES # (AUTO) 0.8 10^3/uL (0.0-1.0); MONOCYTES % (AUTO) 8.6 %; NEUTROPHILS # (AUTO) 7.4 10^3/uL (1.5-6.6); NEUTROPHILS % (AUTO) 77.1 %; PLT - PLATELET COUNT 266 10^3/uL (130-450); RED BLOOD COUNT 4.74 10^6/uL (4.70-6.10); RED CELL DISTRIBUTION WIDTH 15.5 % (12.0-15.0); WHITE BLOOD COUNT 9.6 x10^3/uL (4.8-10.8)
[2019-06-03 05:57] LABS: INR 1.4 (0.8-1.2); PT - PROTHROMBIN TIME 15.8 secs (9.9-12.6)
[2019-06-03] MEDS: LEVOTHYROXINE 100 MCG TABLET NG SCH (06:02)
[2019-06-03 06:33] LABS: ALBUMIN 2.3 g/dL (3.2-5.5); ALBUMIN/GLOBULIN RATIO 0.7 (1.0-2.2); BILIRUBIN,TOTAL 0.7 mg/dL (0.2-1.0); CALCIUM 7.8 mg/dL (8.5-10.3); CREATININE 1.8 mg/dL (0.6-1.2); MAGNESIUM 2.4 mg/dL (1.7-2.8); PHOSPHORUS 3.5 mg/dL (2.5-4.6); TOTAL PROTEIN 5.4 g/dL (6.7-8.2)
[2019-06-03] MEDS ORDERED: POTASSIUM CHLORIDE 20 MEQ/15 ML UDC PEG ONE (08:00)
[2019-06-03] MEDS: ASPIRIN CHEW 81 MG TABLET PEG SCH (08:59)
[2019-06-03] MEDS: AMOX/CLAV 200 MG/28.5 MG CHEW TABLET PEG SCH ×2 (08:59→21:04)
[2019-06-03] MEDS ORDERED: APIXABAN 2.5 MG TABLET PO SCH ×2 (09:00)
[2019-06-03] MEDS: carvediloL 12.5 MG TABLET NG SCH ×2 (09:02→21:04)
[2019-06-03] MEDS: lisinopriL 20 MG TABLET NG SCH (09:03)
[2019-06-03] MEDS: SENNA 8.6 MG TABLET NG SCH (09:03)
[2019-06-03] MEDS: D5.45NS W/20 MEQ KCL 1,000 ML IV SCH ×2 (09:11→21:05)
[2019-06-03] MEDS: DOCUSATE SODIUM 250 MG CAPSULE PO SCH (09:11)
[2019-06-03] MEDS: polyethylene glycoL 3350 17 GM PACKET NG SCH (09:11)
[2019-06-03] MEDS: LANSOPRAZOLE 15 MG CAPSULE PEG SCH ×3 (09:12→21:54)
--- NOTE | 2019-06-03 09:57 | XRAY Report ---
Reason: fever, sweating Procedure Date: 06/03/2019 Accession Number: [id number] / [id number] Procedure: XR - Chest 1 View X-Ray CPT Code: 37072 Final Report FULL RESULT: EXAM: CHEST RADIOGRAPHY EXAM DATE: 06/03/2019 09:41 AM. CLINICAL HISTORY: Fever, sweating. COMPARISON: CHEST 1 VIEW 05/28/2019 10:05 AM CHEST 2 VIEW PA/LAT 01/17/2015 8:35 AM. TECHNIQUE: Semi-upright AP view. FINDINGS: Lungs/Pleura: No focal opacities evident. No pleural effusion. No pneumothorax. Mediastinum: Mild cardiomegaly, as before. 4.0 x 2.7 cm calcified right posterior mediastinal lymph node, as before. Other: None. IMPRESSION: 1. Lungs are clear. 2. Mild cardiomegaly, as before. 3. 4.0 x 2.7 cm right posterior mediastinal calcified lymph node, as before. RADIA
--- NOTE | 2019-06-03 10:10 | PROVIDER PROGRESS NOTE ---
Subjective - General Admit Date: 05/25/19 Procedure Date: 06/02/19 Post Op Days: 1 Procedure Performed: PEG tube placement - Review of Systems Wound/Incisions: positive: Healing well, Dressing dry and intact, No drainage Drain Type: PEG tube in place and working well Gastrointestinal: positive: No symptoms (Tube feeds running) All Other Systems: positive: Other (all others unobtainable at this time) Objective - Patient Data Reviewed Vital Signs: Yes Vital Signs: Vital Signs x48h Temp Pulse Pulse Resp BP BP Pulse Ox 06/03/19 08:13 37.7 C H 77 96 22 123/84 H 96 06/03/19 06:27 71 114/71 06/03/19 06:22 63 112/67 06/03/19 06:17 69 126/82 H 06/03/19 06:12 133/68 H 06/03/19 04:07 36.6 C 97 16 110/84 H 93 06/03/19 02:46 73 107/75 Weight: Weight 06/01/19 06/02/19 06/03/19 23:59 23:59 23:59 Weight (kg) 113.398 kg 115 kg Intake & Output: Intake and Output Totals x24h 06/01/19 06/02/19 06/03/19 23:59 23:59 23:59 Intake Total 1295 2326.667 712 Output Total 800 1300 250 Balance 495 1026.667 462 - Lab Results Lab Results: 06/03/19 05:37 06/03/19 05:37 Other Lab Results: Lab Results x24hrs 06/03/19 06/03/19 06/03/19 Range/Units 06:35 05:37 05:37 WBC 9.6 (4.8-10.8) x10^3/uL RBC 4.74 (4.70-6.10) 10^6/uL Hgb 13.9 L (14.0-18.0) g/dL Hct 43.3 (42.0-52.0) % MCV 91.4 (80.0-94.0) fL MCH 29.3 (27.0-31.0) pg MCHC 32.1 (32.0-36.0) g/dL RDW 15.5 H (12.0-15.0) % Plt Count 266 (130-450) 10^3/uL MPV 11.3 (7.4-11.4) fL Neut # (Auto) 7.4 H (1.5-6.6) 10^3/uL Lymph # (Auto) 1.0 L (1.5-3.5) 10^3/uL [place] # (Auto) 0.8 (0.0-1.0) 10^3/uL Eos # (Auto) 0.2 (0.0-0.7) 10^3/uL Baso # (Auto) 0.0 (0.0-0.1) 10^3/uL Absolute Nucleated RBC 0.00 x10^3/uL Nucleated RBC % 0.0 /100WBC PT (9.9-12.6) secs INR (0.8-1.2) Sodium 142 (135-145) mmol/L Potassium 3.2 L (3.5-5.0) mmol/L Chloride 115 H (101-111) mmol/L Carbon Dioxide 21 (21-32) mmol/L Anion Gap 6.0 (6-13) BUN 36 H (6-20) mg/dL Creatinine 1.8 H (0.6-1.2) mg/dL Estimated GFR (MDRD) 37 L (>89) Glucose 103 H (70-100) mg/dL POC Whole Bld Glucose 106 H (70 - 100) mg/dL Calcium 7.8 L (8.5-10.3) mg/dL Phosphorus 3.5 (2.5-4.6) mg/dL Magnesium 2.4 (1.7-2.8) mg/dL Total Bilirubin 0.7 (0.2-1.0) mg/dL AST 44 H (10-42) IU/L ALT 27 (10-60) IU/L Alkaline Phosphatase 106 (42-121) IU/L Total Protein 5.4 L (6.7-8.2) g/dL Albumin 2.3 L (3.2-5.5) g/dL Globulin 3.1 (2.1-4.2) g/dL Albumin/Globulin Ratio 0.7 L (1.0-2.2) Prealbumin 5 L (18-45) mg/dL 06/03/19 06/03/19 06/02/19 Range/Units 05:37 00:26 17:46 WBC (4.8-10.8) x10^3/uL RBC (4.70-6.10) 10^6/uL Hgb (14.0-18.0) g/dL Hct (42.0-52.0) % MCV (80.0-94.0) fL MCH (27.0-31.0) pg MCHC (32.0-36.0) g/dL RDW (12.0-15.0) % Plt Count (130-450) 10^3/uL MPV (7.4-11.4) fL Neut # (Auto) (1.5-6.6) 10^3/uL Lymph # (Auto) (1.5-3.5) 10^3/uL [place] # (Auto) (0.0-1.0) 10^3/uL Eos # (Auto) (0.0-0.7) 10^3/uL Baso # (Auto) (0.0-0.1) 10^3/uL Absolute Nucleated RBC x10^3/uL Nucleated RBC % /100WBC PT 15.8 H (9.9-12.6) secs INR 1.4 H (0.8-1.2) Sodium (135-145) mmol/L Potassium (3.5-5.0) mmol/L Chloride (101-111) mmol/L Carbon Dioxide (21-32) mmol/L Anion Gap (6-13) BUN (6-20) mg/dL Creatinine (0.6-1.2) mg/dL Estimated GFR (MDRD) (>89) Glucose (70-100) mg/dL POC Whole Bld Glucose 94 119 H (70 - 100) mg/dL Calcium (8.5-10.3) mg/dL Phosphorus (2.5-4.6) mg/dL Magnesium (1.7-2.8) mg/dL Total Bilirubin (0.2-1.0) mg/dL AST (10-42) IU/L ALT (10-60) IU/L Alkaline Phosphatase (42-121) IU/L Total Protein (6.7-8.2) g/dL Albumin (3.2-5.5) g/dL Globulin (2.1-4.2) g/dL Albumin/Globulin Ratio (1.0-2.2) Prealbumin (18-45) mg/dL - Current Medications Current Medications: Current Medications Generic Name Dose Route Start Last Admin Trade Name Freq PRN Reason Stop Dose Admin Acetaminophen 640 mg 06/02/19 13:01 06/03/19 00:53 Tylenol NG 640 mg Q4HR PRN Administration Pain 1 to 4 Amoxicillin/Clavulanate Potassium 2.5 tab 06/03/19 09:00 06/03/19 08:59 Augmentin Chew 200/28.5 PEG 06/04/19 21:01 2.5 tab BID LUIS Administration Apixaban 5 mg 06/03/19 09:00 06/03/19 09:10 Eliquis PO 5 mg BID LUIS Administration Aspirin 81 mg 06/03/19 09:00 06/03/19 08:59 [facility] Aspirin PEG 81 mg DAILY LUIS Administration Atorvastatin Calcium 80 mg 06/02/19 13:00 06/02/19 21:36 Lipitor NG 80 mg QPM LUIS Administration Carvedilol 12.5 mg 06/02/19 13:30 06/03/19 09:02 Coreg NG 12.5 mg BID LUIS Administration Docusate Sodium 250 - 500 mg 05/26/19 09:00 06/03/19 09:11 Colace 250mg Capsule PO 250 mg DAILY LUIS Administration Doxazosin Mesylate 4 mg 06/02/19 21:00 06/02/19 21:36 Cardura PEG 4 mg QPM LUIS Administration Hydralazine HCl 10 mg 05/29/19 11:01 05/31/19 09:15 Apresoline Inj IVP 10 mg QID PRN Administration Hypertensive Emergency Potassium Chloride/Dextrose/Sod Cl 1,000 mls @ 83.333 mls/hr 06/03/19 08:00 06/03/19 09:11 D5.45ns W/20 Meq Kcl IV 06/04/19 07:59 83.333 mls/hr .Q12H LUIS Administration Lansoprazole 30 mg 06/02/19 14:00 06/03/19 09:12 Prevacid PEG 30 mg BID LUIS Administration Lisinopril 30 mg 06/02/19 13:30 06/03/19 09:03 Zestril NG 30 mg DAILY LUIS Administration Mineral Oil 1 applic 05/26/19 01:27 05/27/19 19:02 Cavilon TOP 1 applic PRN PRN Administration Skin Care Polyethylene Glycol 17 gm 06/02/19 13:30 06/03/19 09:11 Miralax NG 17 gm DAILY LUIS Administration Senna 8.6 - 17.2 mg 06/02/19 13:30 06/03/19 09:03 Senokot NG 1 mg DAILY LUIS Administration Sodium Chloride 10 ml 05/25/19 19:23 06/03/19 06:33 Normal Saline Flush 0.9% IVP 10 ml PRN PRN Administration NEEDED PER PROVIDER ORDERS Sodium Chloride 10 ml 05/26/19 01:00 06/03/19 09:12 Normal Saline Flush 0.9% IVP 10 ml 0100,0900,1700 LUIS Administration - Physical Exam General Appearance: positive: No acute distress Respiratory: positive: No respiratory distress, Breath sounds nml Cardiovascular: positive: Regular rate & rhythm Abdomen: positive: Other (PEG tube in the LUQ well positioned and secure, 3cm at the top of the phylange, no redness no swelling no signs of infection and tube feeds running) Skin: positive: Color nml, No rash Impression/Plan - Problem List Problem List: CVA with aspiration risk S/P PEG tube placement. Functioning well,. ok to d/c to rehab from surgery standpoint.. Recommend gen surgery outpatient follow up for tube check in 2-3 weeks. Please call if any questions/concerns.
--- NOTE | 2019-06-03 11:05 | PROVIDER PROGRESS NOTE ---
Subjective - Prog Note Date Prog Note Date: 06/03/19 - Subjective Pt reports feeling: Improved Subjective: pt denies pain, fever, chill, chest pain, shortness of breath. pt want to walk with Ivelisse, her caregiver. pt has DPOA documentation needed to be signed. pt is pending for replacement to SNF pt had temperature 37.7 ans sweating. CXR is pending. blood culture is ordered. pt has his antibiotics for his aspiration pneumonia. Current Medications - Current Medications Current Medications: Active Medications Acetaminophen (Tylenol) 640 mg NG Q4HR PRN PRN Reason: Pain 1 to 4 Last Admin: 06/03/19 00:53 Dose: 640 mg Amoxicillin/Clavulanate Potassium (Augmentin Chew 200/28.5) 2.5 tab PEG BID [facility] Stop: 06/04/19 21:01 Last Admin: 06/03/19 08:59 Dose: 2.5 tab Apixaban (Eliquis) 5 mg PEG BID [facility] Aspirin ([facility] Aspirin) 81 mg PEG DAILY [facility] Last Admin: 06/03/19 08:59 Dose: 81 mg Atorvastatin Calcium (Lipitor) 80 mg NG QPM [facility] Last Admin: 06/02/19 21:36 Dose: 80 mg Carvedilol (Coreg) 12.5 mg NG BID [facility] Last Admin: 06/03/19 09:02 Dose: 12.5 mg Docusate Sodium (Colace 250mg Capsule) 250 - 500 mg PO DAILY [facility] Last Admin: 06/03/19 09:11 Dose: 250 mg Doxazosin Mesylate (Cardura) 4 mg PEG QPM [facility] Last Admin: 06/02/19 21:36 Dose: 4 mg Hydralazine HCl (Apresoline Inj) 10 mg IVP QID PRN PRN Reason: Hypertensive Emergency Last Admin: 05/31/19 09:15 Dose: 10 mg Potassium Chloride/Dextrose/Sod Cl (D5.45ns W/20 Meq Kcl) 1,000 mls @ 83.333 mls/hr IV .Q12H [facility] Stop: 06/04/19 07:59 Last Admin: 06/03/19 09:11 Dose: 83.333 mls/hr Lansoprazole (Prevacid) 30 mg PEG BID [facility] Last Admin: 06/03/19 09:12 Dose: 30 mg Levothyroxine Sodium (Synthroid) 112 mcg PEG QDAC [facility] Lisinopril (Zestril) 30 mg NG DAILY [facility] Last Admin: 06/03/19 09:03 Dose: 30 mg Mineral Oil (Cavilon) 1 applic TOP PRN PRN PRN Reason: Skin Care Last Admin: 05/27/19 19:02 Dose: 1 applic Polyethylene Glycol (Miralax) 17 gm NG DAILY [facility] Last Admin: 06/03/19 09:11 Dose: 17 gm Senna (Senokot) 8.6 - 17.2 mg NG DAILY [facility] Last Admin: 06/03/19 09:03 Dose: 1 mg Sodium Chloride (Normal Saline Flush 0.9%) 10 ml IVP PRN PRN PRN Reason: NEEDED PER PROVIDER ORDERS Last Admin: 06/03/19 06:33 Dose: 10 ml Sodium Chloride (Normal Saline Flush 0.9%) 10 ml IVP 0100,0900,1700 [facility] Last Admin: 06/03/19 09:12 Dose: 10 ml Amlodipine Besylate 10 mg PO DAILY 01/18/15 lisinopriL [Lisinopril] 20 mg PO DAILY 01/18/15 Carvedilol 12.5 mg PO DAILY 05/25/19 Furosemide 40 mg PO DAILY 05/25/19 Levothyroxine [Synthroid] 100 mcg PO DAILY 05/25/19 Warfarin Sodium 5 mg PO DAILY 05/25/19 amLODIPine [Norvasc] 10 mg PO DAILY 05/25/19 Objective - Vital Signs/Intake & Output Vital Signs: Vital Signs x48h Temp Pulse Pulse Resp BP BP Pulse Ox 06/03/19 08:13 37.7 C H 77 96 22 123/84 H 96 06/03/19 06:27 71 114/71 06/03/19 06:22 63 112/67 06/03/19 06:17 69 126/82 H 06/03/19 06:12 133/68 H 06/03/19 04:07 36.6 C 97 16 110/84 H 93 Intake & Output: Intake & Output 05/31/19 06/01/19 06/02/19 06/03/19 23:59 23:59 23:59 23:59 Intake Total 2540 1295 2326.667 712 Output Total 914 687 9983 250 Balance 6890 781 3454.667 462 - Objective General Appearance: positive: No acute distress, Alert. negative: Lethargic Eyes Bilateral: positive: Normal inspection, PERRL, No lid inflammation ENT: positive: ENT inspection nml, Pharynx nml. negative: Purulent nasal drainage Neck: positive: Nml inspection, Thyroid nml, No JVD, Trachea midline. negative: Thyromegaly, Stiff neck, Tracheal deviation Respiratory: positive: Chest non-tender, No respiratory distress, Breath sounds nml. negative: Wheezes, Rales, Rhonchi Cardiovascular: positive: No murmur, No gallop, Irregularly irregular. negative: Extrasystoles, Tachycardia, Bradycardia, Systolic murmur, Diastolic murmur Peripheral Pulses: 2+ Radial (R), 2+ Radial (L) Abdomen: positive: Non-tender, No organomegaly, Nml bowel sounds, No distention. negative: Tenderness, Guarding, Rebound Back: positive: Nml inspection. negative: CVA tenderness (R), CVA tenderness (L) Skin: positive: Color nml, No rash, Warm, Dry. negative: Cyanosis, Diaphoresis, Pallor Extremities: positive: Non-tender. negative: Calf tenderness, Tawnya's sign/cords Neurologic/Psychiatric: positive: Oriented x3, Weakness, Sensory loss, Slurred/ abnml speech. negative: Facial droop - Lab Results Fish Bones: 06/03/19 05:37 06/03/19 05:37 Other Labs: Lab Results x24hrs 06/03/19 06/03/19 06/03/19 Range/Units 06:35 05:37 05:37 WBC 9.6 (4.8-10.8) x10^3/uL RBC 4.74 (4.70-6.10) 10^6/uL Hgb 13.9 L (14.0-18.0) g/dL Hct 43.3 (42.0-52.0) % MCV 91.4 (80.0-94.0) fL MCH 29.3 (27.0-31.0) pg MCHC 32.1 (32.0-36.0) g/dL RDW 15.5 H (12.0-15.0) % Plt Count 266 (130-450) 10^3/uL MPV 11.3 (7.4-11.4) fL Neut # (Auto) 7.4 H (1.5-6.6) 10^3/uL Lymph # (Auto) 1.0 L (1.5-3.5) 10^3/uL [place] # (Auto) 0.8 (0.0-1.0) 10^3/uL Eos # (Auto) 0.2 (0.0-0.7) 10^3/uL Baso # (Auto) 0.0 (0.0-0.1) 10^3/uL Absolute Nucleated RBC 0.00 x10^3/uL Nucleated RBC % 0.0 /100WBC PT (9.9-12.6) secs INR (0.8-1.2) Sodium 142 (135-145) mmol/L Potassium 3.2 L (3.5-5.0) mmol/L Chloride 115 H (101-111) mmol/L Carbon Dioxide 21 (21-32) mmol/L Anion Gap 6.0 (6-13) BUN 36 H (6-20) mg/dL Creatinine 1.8 H (0.6-1.2) mg/dL Estimated GFR (MDRD) 37 L (>89) Glucose 103 H (70-100) mg/dL POC Whole Bld Glucose 106 H (70 - 100) mg/dL Calcium 7.8 L (8.5-10.3) mg/dL Phosphorus 3.5 (2.5-4.6) mg/dL Magnesium 2.4 (1.7-2.8) mg/dL Total Bilirubin 0.7 (0.2-1.0) mg/dL AST 44 H (10-42) IU/L ALT 27 (10-60) IU/L Alkaline Phosphatase 106 (42-121) IU/L Total Protein 5.4 L (6.7-8.2) g/dL Albumin 2.3 L (3.2-5.5) g/dL Globulin 3.1 (2.1-4.2) g/dL Albumin/Globulin Ratio 0.7 L (1.0-2.2) Prealbumin 5 L (18-45) mg/dL 06/03/19 06/03/19 06/02/19 Range/Units 05:37 00:26 17:46 WBC (4.8-10.8) x10^3/uL RBC (4.70-6.10) 10^6/uL Hgb (14.0-18.0) g/dL Hct (42.0-52.0) % MCV (80.0-94.0) fL MCH (27.0-31.0) pg MCHC (32.0-36.0) g/dL RDW (12.0-15.0) % Plt Count (130-450) 10^3/uL MPV (7.4-11.4) fL Neut # (Auto) (1.5-6.6) 10^3/uL Lymph # (Auto) (1.5-3.5) 10^3/uL [place] # (Auto) (0.0-1.0) 10^3/uL Eos # (Auto) (0.0-0.7) 10^3/uL Baso # (Auto) (0.0-0.1) 10^3/uL Absolute Nucleated RBC x10^3/uL Nucleated RBC % /100WBC PT 15.8 H (9.9-12.6) secs INR 1.4 H (0.8-1.2) Sodium (135-145) mmol/L Potassium (3.5-5.0) mmol/L Chloride (101-111) mmol/L Carbon Dioxide (21-32) mmol/L Anion Gap (6-13) BUN (6-20) mg/dL Creatinine (0.6-1.2) mg/dL Estimated GFR (MDRD) (>89) Glucose (70-100) mg/dL POC Whole Bld Glucose 94 119 H (70 - 100) mg/dL Calcium (8.5-10.3) mg/dL Phosphorus (2.5-4.6) mg/dL Magnesium (1.7-2.8) mg/dL Total Bilirubin (0.2-1.0) mg/dL AST (10-42) IU/L ALT (10-60) IU/L Alkaline Phosphatase (42-121) IU/L Total Protein (6.7-8.2) g/dL Albumin (3.2-5.5) g/dL Globulin (2.1-4.2) g/dL Albumin/Globulin Ratio (1.0-2.2) Prealbumin (18-45) mg/dL ABX Reporting Has patient been on IV antibiotics over the past 48 hours?: Yes Assessment/Plan - Problem List (1) Cerebrovascular accident (CVA) Impression: gradually some improved. continue PT/OT evaluation and treatment. per PT/OT recommendation, pt is pending for replacement for SNF, consulted with social worker masters for safely d/c plan continue aspirin and statin (2) Dysphagia PEG tube placed. surgeon suggest we can use fluid dosage as needed. continue consult with manager long term care, continue Tube feeding, will reach feeding Maximum dosage gradually (3) Aspiration pneumonia Assessment/Plan: pt had fiver days unasyn IV, today switch to PO Augmentin for (4)right posterior mediastinal calcified lymph node CXR reveals pt has 4X2.7 cm calcified right posterior mediastinal lymph node, as before, pt had CXR on 05/28/2019 and chest 2 view on 01/17/2015. discussed with pt about the finding, advise pt followup furniture manager for further management as needed. pt understood. (5) Atrial fibrillation with rapid ventricular response Assessment/Plan: stable HR A PEG tube was placed. As a result pt was resumed patient's Coreg and increased to Bid Coreg. hold IV of Metoprolol (6) Hypothyroidism Assessment/Plan: TSH is high and Free T4 is at lower side of normal, increase Synthroid to 112 mcg daily from home 100 mcg daily (7) Hypertension stable, Continue patient's current medications Coreg 12.5 mg via feeding tube twice daily. Lisinopril daily. Hydralazine as needed. (8) Left ventricular dysfunction with reduced left ventricular function Assessment/Plan: pt EF is 25-30%, Continue Coreg, Lisinopril, caution to fluid over loaded. (9) CKD pt had hx of CKD at stage 3, today his creatinine is increasing slightly, pt is clinic dehydration with elevated temperature. gently IVF to pt, and lab monitor. Qualifiers: CVA mechanism: thrombosis Laterality of affected vessel: right
[2019-06-03] MEDS: SACCHAROMYCES BOULARDII 250 MG CAPSULE PO SCH (17:25)
[2019-06-03 17:42] LABS: BILIRUBIN,URINE NEGATIVE (NEGATIVE); GLUCOSE, URINE (UA) NEGATIVE (NEGATIVE); KETONES,URINE (UA) NEGATIVE (NEGATIVE); LEUKOCYTE ESTERASE, URINE NEGATIVE (NEGATIVE); NITRITE,URINE NEGATIVE (NEGATIVE); OCCULT BLOOD,URINE SMALL (NEGATIVE); PH,URINE 5.5 PH (5.0-7.5); PROTEIN,URINE 30 mg/dL (NEGATIVE); UROBILINOGEN,URINE 0.2 (NORMAL) E.U./dL (NORMAL)
[2019-06-03 17:44] LABS: CLARITY,URINE CLEAR (CLEAR)
[2019-06-03 17:47] LABS: AMORPHOUS SEDIMENT,UR Rare /LPF; BACTERIA,URINE Rare /HPF (None Seen); CASTS, URINE 3-5 Granular Casts /LPF; MUCUS,URINE Few Strands; RBC,URINE 0-5 /HPF (0-5); SQUAMOUS EPITHELIAL CELL,UR NONE SEEN (<= Few)
[2019-06-03] MEDS: DOXAZOSIN 4 MG TABLET PEG SCH (21:04)
[2019-06-03] MEDS: ATORVASTATIN 40 MG TABLET NG SCH (21:04)
[2019-06-03] MEDS: APIXABAN 5 MG TABLET PEG SCH (21:05)
[2019-06-04] MEDS: SODIUM CHLORIDE FLUSH 0.9% 10 ML SYRINGE IVP SCH ×4 (00:51→23:51)
[2019-06-04] MEDS: LEVOTHYROXINE 112 MCG TABLET PEG SCH (06:21)
[2019-06-04] MEDS: SACCHAROMYCES BOULARDII 250 MG CAPSULE PO SCH (07:59)
[2019-06-04 08:21] LABS: BASOPHILS % (AUTO) 0.3 %; CREATININE 1.8 mg/dL (0.6-1.2); EOSINOPHILS # (AUTO) 0.2 10^3/uL (0.0-0.7); EOSINOPHILS % (AUTO) 2.2 %; HGB - HEMOGLOBIN 13.1 g/dL (14.0-18.0); LYMPHOCYTES # (AUTO) 1.2 10^3/uL (1.5-3.5); LYMPHOCYTES % (AUTO) 12.2 %; MEAN CORPUSCULAR HEMOGLOBIN 28.2 pg (27.0-31.0); MEAN CORPUSCULAR HGB CONC 30.8 g/dL (32.0-36.0); MEAN CORPUSCULAR VOLUME 91.4 fL (80.0-94.0); MEAN PLATELET VOLUME 12.7 fL (7.4-11.4); MONOCYTES # (AUTO) 0.6 10^3/uL (0.0-1.0); MONOCYTES % (AUTO) 6.6 %; NEUTROPHILS # (AUTO) 7.3 10^3/uL (1.5-6.6); NEUTROPHILS % (AUTO) 76.9 %; PLT - PLATELET COUNT 219 10^3/uL (130-450); RED BLOOD COUNT 4.65 10^6/uL (4.70-6.10); RED CELL DISTRIBUTION WIDTH 15.7 % (12.0-15.0); WHITE BLOOD COUNT 9.5 x10^3/uL (4.8-10.8)
[2019-06-04] MEDS: AMOX/CLAV 200 MG/28.5 MG CHEW TABLET PEG SCH ×2 (09:13→21:27)
[2019-06-04] MEDS: lisinopriL 20 MG TABLET NG SCH (09:17)
[2019-06-04] MEDS: APIXABAN 5 MG TABLET PEG SCH ×2 (09:19→21:28)
[2019-06-04] MEDS: ASPIRIN CHEW 81 MG TABLET PEG SCH (09:19)
[2019-06-04] MEDS: carvediloL 12.5 MG TABLET NG SCH ×2 (09:19→21:27)
[2019-06-04] MEDS: SENNA 8.6 MG TABLET NG SCH (09:26)
[2019-06-04] MEDS: polyethylene glycoL 3350 17 GM PACKET NG SCH (09:26)
[2019-06-04] MEDS: DOCUSATE SODIUM 250 MG CAPSULE PO SCH (09:27)
[2019-06-04] MEDS: hydrALAZINE INJ 20 MG/ML VIAL IVP PRN (12:28)
[2019-06-04] MEDS: LANSOPRAZOLE 15 MG CAPSULE PEG SCH ×2 (13:01→21:48)
--- NOTE | 2019-06-04 13:20 | PROVIDER PROGRESS NOTE ---
Assessment/Plan - Problem List (1) Cerebrovascular accident (CVA) Qualifiers: CVA mechanism: thrombosis Laterality of affected vessel: right Assessment/Plan: 06/03 pt report he feel good, no complaint. pt is pending for replacement. continue PT/OT evaluation and treatment, continue social work job titles consult for replacement continue aspirin and statin gradually some improved. continue PT/OT evaluation and treatment. per PT/OT recommendation, pt is pending for replacement for SNF, consulted with social work job titles for safely d/c plan continue aspirin and statin (2) Dysphagia 06/03 pt tolerate tube feeding well. increase to feeding goal 80cc/h of Jevity 1.2, plus free water and flush water. PEG tube placed. surgeon suggest we can use fluid dosage as needed. continue consult with machine puller over, continue Tube feeding, will reach feeding Maximum dosage gradually (3) Aspiration pneumonia Assessment/Plan: 06/03 continue Augmentin for total 7-10 days plus probiotics pt had fiver days unasyn IV, today switch to PO Augmentin for (4)right posterior mediastinal calcified lymph node 06/03 stable, no more fever. blood culture is negative for bacteremia. CXR reveals pt has 4X2.7 cm calcified right posterior mediastinal lymph node, as before, pt had CXR on 05/28/2019 and chest 2 view on 01/17/2015. discussed with pt about the finding, advise pt followup rubber off for further management as needed. pt understood. (5) Atrial fibrillation with rapid ventricular response Assessment/Plan: stable HR A PEG tube was placed. As a result pt was resumed patient's Coreg and increased to Bid Coreg. hold IV of Metoprolol (6) Hypothyroidism Assessment/Plan: TSH is high and Free T4 is at lower side of normal, increase Synthroid to 112 mcg daily from home 100 mcg daily (7) Hypertension stable, Continue patient's current medications Coreg 12.5 mg via feeding tube twice daily. Lisinopril daily. Hydralazine as needed. (8) Left ventricular dysfunction with reduced left ventricular function Assessment/Plan: pt EF is 25-30%, Continue Coreg, Lisinopril, caution to fluid over loaded. (9) CKD 06/03 stable, creatinine 1.8 as his baseline. continue keep pt hydration enough with Tube feeding pt had hx of CKD at stage 3, today his creatinine is increasing slightly, pt is clinic dehydration with elevated temperature. gently IVF to pt, and lab monitor. - Current Meds Current Meds: Current Medications Generic Name Dose Route Start Last Admin Trade Name Freq PRN Reason Stop Dose Admin Acetaminophen 640 mg 06/02/19 13:01 06/03/19 15:53 Tylenol NG 640 mg Q4HR PRN Administration Pain 1 to 4 Amoxicillin/Clavulanate Potassium 2.5 tab 06/03/19 09:00 06/04/19 09:13 Augmentin Chew 200/28.5 PEG 06/04/19 21:01 2.5 tab BID LUIS Administration Apixaban 5 mg 06/03/19 21:00 06/04/19 09:19 Eliquis PEG 5 mg BID LUIS Administration Aspirin 81 mg 06/03/19 09:00 06/04/19 09:19 [facility] Aspirin PEG 81 mg DAILY LUIS Administration Atorvastatin Calcium 80 mg 06/02/19 13:00 06/03/19 21:04 Lipitor NG 80 mg QPM LUIS Administration Carvedilol 12.5 mg 06/02/19 13:30 06/04/19 09:19 Coreg NG 12.5 mg BID LUIS Administration Docusate Sodium 250 - 500 mg 05/26/19 09:00 06/04/19 09:27 Colace 250mg Capsule PO Not Given DAILY [facility] Doxazosin Mesylate 4 mg 06/02/19 21:00 06/03/19 21:04 Cardura PEG 4 mg QPM LUIS Administration Hydralazine HCl 10 mg 05/29/19 11:01 06/04/19 12:28 Apresoline Inj IVP 10 mg QID PRN Administration Hypertensive Emergency Lansoprazole 30 mg 06/02/19 14:00 06/04/19 13:01 Prevacid PEG Not Given BID [facility] Levothyroxine Sodium 112 mcg 06/04/19 07:00 06/04/19 06:21 Synthroid PEG 112 mcg QDAC LUIS Administration Lisinopril 30 mg 06/02/19 13:30 06/04/19 09:17 Zestril NG 30 mg DAILY [facility] Administration Mineral Oil 1 applic 05/26/19 01:27 05/27/19 19:02 Cavilon TOP 1 applic PRN PRN Administration Skin Care Polyethylene Glycol 17 gm 06/02/19 13:30 06/04/19 09:26 Miralax NG Not Given DAILY [facility] Saccharomyces Boulardii 250 mg 06/03/19 17:00 06/04/19 07:59 Florastor PO 250 mg BIDWM LUIS Administration Senna 8.6 - 17.2 mg 06/02/19 13:30 06/04/19 09:26 Senokot NG Not Given DAILY [facility] Sodium Chloride 10 ml 05/25/19 19:23 06/03/19 06:33 Normal Saline Flush 0.9% IVP 10 ml PRN PRN Administration NEEDED PER PROVIDER ORDERS Sodium Chloride 10 ml 05/26/19 01:00 06/04/19 09:26 Normal Saline Flush 0.9% IVP 10 ml 0100,0900,1700 LUIS Administration - Lab Result Fish Bone Diagrams: 06/04/19 07:50 06/04/19 07:50 - Additional Planning My Orders: My Active Orders 06/03/19 17:00 Saccharomyces Boulardii [Florastor] 250 mg PO BIDWM 06/04/19 07:00 Levothyroxine [Synthroid] 112 mcg PEG QDAC 06/05/19 05:00 BMP - BASIC METABOLIC PANEL [CHEM] DAILYLAB CBC - COMP BLD CT W/AUTO DIFF [HEME] DAILYLAB 06/06/19 05:00 BMP - BASIC METABOLIC PANEL [CHEM] DAILYLAB CBC - COMP BLD CT W/AUTO DIFF [HEME] DAILYLAB 06/07/19 05:00 BMP - BASIC METABOLIC PANEL [CHEM] DAILYLAB CBC - COMP BLD CT W/AUTO DIFF [HEME] DAILYLAB 06/08/19 05:00 BMP - BASIC METABOLIC PANEL [CHEM] DAILYLAB CBC - COMP BLD CT W/AUTO DIFF [HEME] DAILYLAB 06/09/19 05:00 BMP - BASIC METABOLIC PANEL [CHEM] DAILYLAB CBC - COMP BLD CT W/AUTO DIFF [HEME] DAILYLAB Subjective - Subjective Patient Reports: Feeling Better Objective Vital Signs: Vital Signs - 24 hr 06/03/19 06/03/19 06/04/19 15:44 20:35 00:30 Temperature 37.0 C 36.7 C 36.5 C Heart Rate [ 80 Brachial] Heart Rate [ 77 88 Monitoring electrodes] Respiratory 18 18 18 Rate Blood Pressure Blood Pressure 134/76 H 148/98 H 140/77 H [Right Brachial artery] O2 Saturation 96 99 97 06/04/19 06/04/19 06/04/19 03:05 08:15 11:43 Temperature 36.4 C L 36.4 C L 36.5 C Heart Rate [ 79 83 99 Brachial] Heart Rate [ Monitoring electrodes] Respiratory 16 18 18 Rate Blood Pressure Blood Pressure 134/93 H 143/111 H 140/116 H [Right Brachial artery] O2 Saturation 98 92 99 06/04/19 06/04/19 06/04/19 12:00 12:28 12:35 Temperature 36.5 C Heart Rate [ 99 64 Brachial] Heart Rate [ Monitoring electrodes] Respiratory 18 Rate Blood Pressure 146/116 H Blood Pressure 140/116 H 164/96 H [Right Brachial artery] O2 Saturation 99 06/04/19 06/04/19 06/04/19 12:40 12:45 12:58 Temperature Heart Rate [ 96 92 Brachial] Heart Rate [ Monitoring electrodes] Respiratory Rate Blood Pressure 140/106 H Blood Pressure 150/111 H 164/105 H [Right Brachial artery] O2 Saturation 06/04/19 13:00 Temperature Heart Rate [ 104 H Brachial] Heart Rate [ Monitoring electrodes] Respiratory Rate Blood Pressure Blood Pressure 140/106 H [Right Brachial artery] O2 Saturation Oxygen O2 Source Room air I&O (Last 24 Hrs): Intake and Output Totals x24h 06/02/19 06/03/19 06/04/19 23:59 23:59 23:59 Intake Total 2326.667 2543.541 1810.000 Output Total 1300 550 755 Balance 4469.991 3833.541 1055.000 General: Alert, No acute distress HEENT: Atraumatic Neck: Supple Lymphatic: no adenopathy Neuro: Alert, Focal Deficits, Oriented Times 3 Cardiovascular: Regular rate, Normal S1, Normal S2 Respiratory: Chest non-tender, No respiratory distress Abdomen: Normal bowel sounds, Soft Extremities: Normal pulses - Results Results: Laboratory Results WBC 9.5 x10^3/uL (4.8-10.8) 06/04/19 07:50 RBC 4.65 10^6/uL (4.70-6.10) L 06/04/19 07:50 Hgb 13.1 g/dL (14.0-18.0) L 06/04/19 07:50 Hct 42.5 % (42.0-52.0) 06/04/19 07:50 MCV 91.4 fL (80.0-94.0) 06/04/19 07:50 MCH 28.2 pg (27.0-31.0) 06/04/19 07:50 MCHC 30.8 g/dL (32.0-36.0) L 06/04/19 07:50 RDW 15.7 % (12.0-15.0) H 06/04/19 07:50 Plt Count 219 10^3/uL (130-450) 06/04/19 07:50 MPV 12.7 fL (7.4-11.4) H 06/04/19 07:50 Neut # (Auto) 7.3 10^3/uL (1.5-6.6) H 06/04/19 07:50 Lymph # (Auto) 1.2 10^3/uL (1.5-3.5) L 06/04/19 07:50 [place] # (Auto) 0.6 10^3/uL (0.0-1.0) 06/04/19 07:50 Eos # (Auto) 0.2 10^3/uL (0.0-0.7) 06/04/19 07:50 Baso # (Auto) 0.0 10^3/uL (0.0-0.1) 06/04/19 07:50 Absolute Nucleated RBC 0.00 x10^3/uL 06/04/19 07:50 Nucleated RBC % 0.0 /100WBC 06/04/19 07:50 PT 15.8 secs (9.9-12.6) H 06/03/19 05:37 INR 1.4 (0.8-1.2) H 06/03/19 05:37 APTT 28.4 secs (24.9-33.3) 05/25/19 17:25 Anti-Xa Level 0.0 U/mL (-0.7) 05/25/19 17:25 Sodium 142 mmol/L (135-145) 06/04/19 07:50 Potassium 3.8 mmol/L (3.5-5.0) 06/04/19 07:50 Chloride 112 mmol/L (101-111) H 06/04/19 07:50 Carbon Dioxide 23 mmol/L (21-32) 06/04/19 07:50 Anion Gap 7.0 (6-13) 06/04/19 07:50 BUN 32 mg/dL (6-20) H 06/04/19 07:50 Creatinine 1.8 mg/dL (0.6-1.2) H 06/04/19 07:50 Estimated GFR (MDRD) 37 (>89) L 06/04/19 07:50 Glucose 109 mg/dL (70-100) H 06/04/19 07:50 POC Whole Bld Glucose 97 mg/dL (70 - 100) 06/04/19 10:45 Glycated Hemoglobin 5.3 % (4.6-6.2) 05/26/19 05:03 Estim Average Glucose 105 (70-100) H 05/26/19 05:03 Calcium 8.0 mg/dL (8.5-10.3) L 06/04/19 07:50 Phosphorus 3.5 mg/dL (2.5-4.6) 06/03/19 05:37 Magnesium 2.4 mg/dL (1.7-2.8) 06/03/19 05:37 Total Bilirubin 0.7 mg/dL (0.2-1.0) 06/03/19 05:37 AST 44 IU/L (10-42) H 06/03/19 05:37 ALT 27 IU/L (10-60) 06/03/19 05:37 Alkaline Phosphatase 106 IU/L (42-121) 06/03/19 05:37 Troponin I High Sens 134.5 ng/L (2.3-19.7) H* 05/25/19 21:05 B-Natriuretic Peptide 471 pg/mL (5-100) H 05/30/19 04:40 Total Protein 5.4 g/dL (6.7-8.2) L 06/03/19 05:37 Albumin 2.3 g/dL (3.2-5.5) L 06/03/19 05:37 Globulin 3.1 g/dL (2.1-4.2) 06/03/19 05:37 Albumin/Globulin Ratio 0.7 (1.0-2.2) L 06/03/19 05:37 Prealbumin 5 mg/dL (18-45) L 06/03/19 05:37 Triglycerides 70 mg/dL (-149) 05/26/19 05:03 Cholesterol 191 mg/dL (-199) 05/26/19 05:03 LDL Cholesterol, Calc 139 mg/dL (-129) H 05/26/19 05:03 VLDL Cholesterol 14 mg/dL 05/26/19 05:03 HDL Cholesterol 38 mg/dL (60-) L 05/26/19 05:03 LDL/HDL Ratio 3.7 (<3.6) 05/26/19 05:03 Cholesterol/HDL Ratio 5.0 (<5.0) 05/26/19 05:03 Lipase 23 U/L (22-51) 05/25/19 17:25 TSH 9.51 uIU/mL (0.34-5.60) H 05/26/19 05:03 Free T4 0.68 ng/dL (0.58-1.64) 05/30/19 04:40 Urine Color DARK YELLOW 06/03/19 17:35 Urine Clarity CLEAR (CLEAR) 06/03/19 17:35 Urine pH 5.5 PH (5.0-7.5) 06/03/19 17:35 Ur Specific [place] 1.025 (1.002-1.030) 06/03/19 17:35 Urine Protein 30 mg/dL (NEGATIVE) H 06/03/19 17:35 Urine Glucose (UA) NEGATIVE mg/dL (NEGATIVE) 06/03/19 17:35 Urine Ketones NEGATIVE mg/dL (NEGATIVE) 06/03/19 17:35 Urine Occult Blood SMALL (NEGATIVE) H 06/03/19 17:35 Urine Nitrite NEGATIVE (NEGATIVE) 06/03/19 17:35 Urine Bilirubin NEGATIVE (NEGATIVE) 06/03/19 17:35 Urine Urobilinogen 0.2 (NORMAL) E.U./dL (NORMAL) 06/03/19 17:35 Ur Leukocyte Esterase NEGATIVE (NEGATIVE) 06/03/19 17:35 Urine RBC 0-5 /HPF (0-5) 06/03/19 17:35 Urine WBC 0-3 /HPF (0-3) 06/03/19 17:35 Ur Squamous Epith Cells NONE SEEN (<= Few) 06/03/19 17:35 Amorphous Sediment Rare /LPF 06/03/19 17:35 Urine Bacteria Rare /HPF (None Seen) 06/03/19 17:35 Urine Casts 3-5 Granular Casts /LPF 06/03/19 17:35 Urine Mucus Few Strands 06/03/19 17:35 Ur Microscopic Review INDICATED 05/25/19 19:15 Urine Culture Comments NOT INDICATED 06/03/19 17:35 Coronavirus (PCR) NEGATIVE 05/28/19 10:26 ABX Reporting Has patient been on IV antibiotics over the past 48 hours?: No Current Medications - Current Medications Current Medications: Active Medications Acetaminophen (Tylenol) 640 mg NG Q4HR PRN PRN Reason: Pain 1 to 4 Last Admin: 06/03/19 15:53 Dose: 640 mg Amoxicillin/Clavulanate Potassium (Augmentin Chew 200/28.5) 2.5 tab PEG BID [facility] Stop: 06/04/19 21:01 Last Admin: 06/04/19 09:13 Dose: 2.5 tab Apixaban (Eliquis) 5 mg PEG BID [facility] Last Admin: 06/04/19 09:19 Dose: 5 mg Aspirin ([facility] Ravi Aspirin) 81 mg PEG DAILY [facility] Last Admin: 06/04/19 09:19 Dose: 81 mg Atorvastatin Calcium (Lipitor) 80 mg NG QPM [facility] Last Admin: 06/03/19 21:04 Dose: 80 mg Carvedilol (Coreg) 12.5 mg NG BID [facility] Last Admin: 06/04/19 09:19 Dose: 12.5 mg Docusate Sodium (Colace 250mg Capsule) 250 - 500 mg PO DAILY [facility] Last Admin: 06/04/19 09:27 Dose: Not Given Doxazosin Mesylate (Cardura) 4 mg PEG QPM [facility] Last Admin: 06/03/19 21:04 Dose: 4 mg Hydralazine HCl (Apresoline Inj) 10 mg IVP QID PRN PRN Reason: Hypertensive Emergency Last Admin: 06/04/19 12:28 Dose: 10 mg Lansoprazole (Prevacid) 30 mg PEG BID [facility] Last Admin: 06/04/19 13:01 Dose: Not Given Levothyroxine Sodium (Synthroid) 112 mcg PEG QDAC [facility] Last Admin: 06/04/19 06:21 Dose: 112 mcg Lisinopril (Zestril) 30 mg NG DAILY [facility] Last Admin: 06/04/19 09:17 Dose: 30 mg Mineral Oil (Cavilon) 1 applic TOP PRN PRN PRN Reason: Skin Care Last Admin: 05/27/19 19:02 Dose: 1 applic Polyethylene Glycol (Miralax) 17 gm NG DAILY [facility] Last Admin: 06/04/19 09:26 Dose: Not Given Saccharomyces Boulardii (Florastor) 250 mg PO BIDWM [facility] Last Admin: 06/04/19 07:59 Dose: 250 mg Senna (Senokot) 8.6 - 17.2 mg NG DAILY [facility] Last Admin: 06/04/19 09:26 Dose: Not Given Sodium Chloride (Normal Saline Flush 0.9%) 10 ml IVP PRN PRN PRN Reason: NEEDED PER PROVIDER ORDERS Last Admin: 06/03/19 06:33 Dose: 10 ml Sodium Chloride (Normal Saline Flush 0.9%) 10 ml IVP 0100,0900,1700 [facility] Last Admin: 06/04/19 09:26 Dose: 10 ml Amlodipine Besylate 10 mg PO DAILY 01/18/15 lisinopriL [Lisinopril] 20 mg PO DAILY 01/18/15 Carvedilol 12.5 mg PO DAILY 05/25/19 Furosemide 40 mg PO DAILY 05/25/19 Levothyroxine [Synthroid] 100 mcg PO DAILY 05/25/19 Warfarin Sodium 5 mg PO DAILY 05/25/19 amLODIPine [Norvasc] 10 mg PO DAILY 05/25/19
[2019-06-04] MEDS: SACCHAROMYCES BOULARDII 250 MG CAPSULE PEG SCH (16:30)
[2019-06-04] MEDS: DOXAZOSIN 4 MG TABLET PEG SCH (21:27)
[2019-06-04] MEDS: ATORVASTATIN 40 MG TABLET NG SCH (21:27)
[2019-06-05 05:47] LABS: BASOPHILS % (AUTO) 0.3 %; EOSINOPHILS # (AUTO) 0.2 10^3/uL (0.0-0.7); EOSINOPHILS % (AUTO) 2.2 %; HGB - HEMOGLOBIN 13.6 g/dL (14.0-18.0); LYMPHOCYTES % (AUTO) 10.3 %; MEAN CORPUSCULAR HGB CONC 31.8 g/dL (32.0-36.0); MEAN CORPUSCULAR VOLUME 91.3 fL (80.0-94.0); MEAN PLATELET VOLUME 11.4 fL (7.4-11.4); MONOCYTES # (AUTO) 0.5 10^3/uL (0.0-1.0); MONOCYTES % (AUTO) 5.2 %; NEUTROPHILS # (AUTO) 7.4 10^3/uL (1.5-6.6); NEUTROPHILS % (AUTO) 78.8 %; PLT - PLATELET COUNT 228 10^3/uL (130-450); RED BLOOD COUNT 4.69 10^6/uL (4.70-6.10); RED CELL DISTRIBUTION WIDTH 15.6 % (12.0-15.0); WHITE BLOOD COUNT 9.4 x10^3/uL (4.8-10.8)
[2019-06-05] MEDS: LEVOTHYROXINE 112 MCG TABLET PEG SCH (06:13)
[2019-06-05 06:19] LABS: ALBUMIN 2.4 g/dL (3.2-5.5); ALBUMIN/GLOBULIN RATIO 0.7 (1.0-2.2); BILIRUBIN,TOTAL 0.5 mg/dL (0.2-1.0); CALCIUM 8.3 mg/dL (8.5-10.3); CREATININE 1.4 mg/dL (0.6-1.2); MAGNESIUM 2.4 mg/dL (1.7-2.8); TOTAL PROTEIN 5.8 g/dL (6.7-8.2)
[2019-06-05] MEDS: SENNA 8.6 MG TABLET NG SCH (09:16)
[2019-06-05] MEDS: APIXABAN 5 MG TABLET PEG SCH ×2 (09:16→21:58)
[2019-06-05] MEDS: DOCUSATE SODIUM 250 MG CAPSULE PO SCH (09:16)
[2019-06-05] MEDS: polyethylene glycoL 3350 17 GM PACKET NG SCH (09:16)
[2019-06-05] MEDS: SACCHAROMYCES BOULARDII 250 MG CAPSULE PEG SCH ×2 (09:16→18:24)
[2019-06-05] MEDS: lisinopriL 20 MG TABLET NG SCH (09:16)
[2019-06-05] MEDS: carvediloL 12.5 MG TABLET NG SCH ×2 (09:17→21:58)
[2019-06-05] MEDS: ASPIRIN CHEW 81 MG TABLET PEG SCH (09:17)
[2019-06-05] MEDS: LANSOPRAZOLE 15 MG CAPSULE PEG SCH ×2 (11:31→21:58)
[2019-06-05] MEDS: SODIUM CHLORIDE FLUSH 0.9% 10 ML SYRINGE IVP SCH ×2 (11:38→17:45)
--- NOTE | 2019-06-05 12:33 | PROVIDER PROGRESS NOTE ---
Assessment/Plan - Problem List (1) Cerebrovascular accident (CVA) Qualifiers: CVA mechanism: thrombosis Laterality of affected vessel: right Assessment/Plan: 06/04 pt is stable, pt is pending for replacement continue PT/OT continue aspirin and statin continue bilingual social worker consult for replacement 06/03 pt report he feel good, no complaint. pt is pending for replacement. continue PT/OT evaluation and treatment, continue bilingual social worker consult for r eplacement continue aspirin and statin gradually some improved. continue PT/OT evaluation and treatment. per PT/OT recommendation, pt is pending for replacement for SNF, consulted with bilingual social worker for safely d/c plan continue aspirin and statin (2) Dysphagia 06/04 pt tolerate PEG tube feeding, no complaint 06/03 pt tolerate tube feeding well. increase to feeding goal 80cc/h of Jevity 1.2, plus free water and flush water. PEG tube placed. surgeon suggest we can use fluid dosage as needed. continue consult with endoscopy specialty technician, continue Tube feeding, will reach feeding Maximum dosage gradually (3) Aspiration pneumonia Assessment/Plan: 06/04 pt has no cough, wheezing, fever or chill. pt has 99% sats on room air. antibiotics is finished now 06/03 continue Augmentin for total 7-10 days plus probiotics pt had fiver days unasyn IV, today switch to PO Augmentin for (4)right posterior mediastinal calcified lymph node 06/03 stable, no more fever. blood culture is negative for bacteremia. CXR reveals pt has 4X2.7 cm calcified right posterior mediastinal lymph node, as before, pt had CXR on 05/28/2019 and chest 2 view on 01/17/2015. discussed with pt about the finding, advise pt followup church supervisor for further management as needed. pt understood. (5) Atrial fibrillation with rapid ventricular response Assessment/Plan: stable HR A PEG tube was placed. As a result pt was resumed patient's Coreg and increased to Bid Coreg. hold IV of Metoprolol (6) Hypothyroidism Assessment/Plan: TSH is high and Free T4 is at lower side of normal, increase Synthroid to 112 mcg daily from home 100 mcg daily (7) Hypertension stable, Continue patient's current medications Coreg 12.5 mg via feeding tube twice daily. Lisinopril daily. Hydralazine as needed. (8) Left ventricular dysfunction with reduced left ventricular function Assessment/Plan: pt EF is 25-30%, Continue Coreg, Lisinopril, caution to fluid over loaded. (9) CKD 06/03 stable, creatinine 1.8 as his baseline. continue keep pt hydration enough with Tube feeding pt had hx of CKD at stage 3, today his creatinine is increasing slightly, pt is clinic dehydration with elevated temperature. gently IVF to pt, and lab monitor. - Current Meds Current Meds: Current Medications Generic Name Dose Route Start Last Admin Trade Name Freq PRN Reason Stop Dose Admin Acetaminophen 640 mg 06/02/19 13:01 06/03/19 15:53 Tylenol NG 640 mg Q4HR PRN Administration Pain 1 to 4 Apixaban 5 mg 06/03/19 21:00 06/05/19 09:16 Eliquis PEG 5 mg BID LUIS Administration Aspirin 81 mg 06/03/19 09:00 06/05/19 09:17 [facility] Aspirin PEG 81 mg DAILY LUIS Administration Atorvastatin Calcium 80 mg 06/02/19 13:00 06/04/19 21:27 Lipitor NG 80 mg QPM ULIS Administration Carvedilol 12.5 mg 06/02/19 13:30 06/05/19 09:17 Coreg NG 12.5 mg BID LUIS Administration Docusate Sodium 250 - 500 mg 05/26/19 09:00 06/05/19 09:16 Colace 250mg Capsule PO 250 mg DAILY LUIS Administration Doxazosin Mesylate 4 mg 06/02/19 21:00 06/04/19 21:27 Cardura PEG 4 mg QPM LUIS Administration Hydralazine HCl 10 mg 05/29/19 11:01 06/04/19 12:28 Apresoline Inj IVP 10 mg QID PRN Administration Hypertensive Emergency Lansoprazole 30 mg 06/02/19 14:00 06/05/19 11:31 Prevacid PEG 30 mg BID LUIS Administration Levothyroxine Sodium 112 mcg 06/04/19 07:00 06/05/19 06:13 Synthroid PEG 112 mcg QDAC LUIS Administration Lisinopril 30 mg 06/02/19 13:30 06/05/19 09:16 Zestril NG 30 mg DAILY LUIS Administration Mineral Oil 1 applic 05/26/19 01:27 05/27/19 19:02 Cavilon TOP 1 applic PRN PRN Administration Skin Care Polyethylene Glycol 17 gm 06/02/19 13:30 06/05/19 09:16 Miralax NG 17 gm DAILY LUIS Administration Saccharomyces Boulardii 250 mg 06/04/19 17:00 06/05/19 09:16 Florastor PEG 250 mg BIDWM LUIS Administration Senna 8.6 - 17.2 mg 06/02/19 13:30 06/05/19 09:16 Senokot NG 8.6 mg DAILY LUIS Administration Sodium Chloride 10 ml 05/25/19 19:23 06/03/19 06:33 Normal Saline Flush 0.9% IVP 10 ml PRN PRN Administration NEEDED PER PROVIDER ORDERS Sodium Chloride 10 ml 05/26/19 01:00 06/05/19 11:38 Normal Saline Flush 0.9% IVP 10 ml 0100,0900,1700 LUIS Administration - Lab Result Fish Bone Diagrams: 06/05/19 05:18 06/05/19 05:58 - Additional Planning My Orders: My Active Orders 06/04/19 13:24 Miscellaenous Nursing Order [RC] QSHIFT 06/04/19 17:00 Saccharomyces Boulardii [Florastor] 250 mg PEG BIDWM 06/06/19 05:00 BMP - BASIC METABOLIC PANEL [CHEM] DAILYLAB CBC - COMP BLD CT W/AUTO DIFF [HEME] DAILYLAB 06/07/19 05:00 BMP - BASIC METABOLIC PANEL [CHEM] DAILYLAB CBC - COMP BLD CT W/AUTO DIFF [HEME] DAILYLAB 06/08/19 05:00 BMP - BASIC METABOLIC PANEL [CHEM] DAILYLAB CBC - COMP BLD CT W/AUTO DIFF [HEME] DAILYLAB 06/09/19 05:00 BMP - BASIC METABOLIC PANEL [CHEM] DAILYLAB CBC - COMP BLD CT W/AUTO DIFF [HEME] DAILYLAB Subjective - Subjective Patient Reports: Feeling Better Objective Vital Signs: Vital Signs - 24 hr 06/04/19 06/04/19 06/04/19 12:35 12:40 12:45 Temperature Heart Rate [ 64 96 92 Brachial] Respiratory Rate Blood Pressure Blood Pressure 164/96 H 150/111 H 164/105 H [Right Brachial artery] O2 Saturation 06/04/19 06/04/19 06/04/19 12:58 13:00 13:20 Temperature Heart Rate [ 104 H 112 H Brachial] Respiratory Rate Blood Pressure 140/106 H Blood Pressure 140/106 H 161/114 H [Right Brachial artery] O2 Saturation 06/04/19 06/04/19 06/04/19 13:30 13:45 16:53 Temperature 36.3 C L Heart Rate [ 82 75 47 L Brachial] Respiratory 19 Rate Blood Pressure Blood Pressure 143/104 H 163/90 H 143/106 H [Right Brachial artery] O2 Saturation 97 06/04/19 06/05/19 06/05/19 21:54 01:00 01:35 Temperature 36.4 C L 35.9 C L Heart Rate [ 67 72 79 Brachial] Respiratory 18 18 Rate Blood Pressure Blood Pressure 136/104 H 147/103 H 139/90 H [Right Brachial artery] O2 Saturation 98 96 06/05/19 06/05/19 06:20 08:29 Temperature 36.4 C L 36.5 C Heart Rate [ 92 81 Brachial] Respiratory 18 14 Rate Blood Pressure Blood Pressure 143/100 H 153/106 H [Right Brachial artery] O2 Saturation 100 99 Oxygen O2 Source Room air I&O (Last 24 Hrs): Intake and Output Totals x24h 06/03/19 06/04/19 06/05/19 23:59 23:59 23:59 Intake Total 2543.541 3080.000 899 Output Total 550 1540 950 Balance 5609.514 4562.000 -51 General: Alert, No acute distress HEENT: Atraumatic Neck: Supple Lymphatic: no adenopathy Neuro: Alert, Oriented Times 3 Cardiovascular: Regular rate, Normal S1, Normal S2 Respiratory: Chest non-tender, No respiratory distress Abdomen: Normal bowel sounds, Soft Extremities: Normal pulses - Results Results: Laboratory Results WBC 9.4 x10^3/uL (4.8-10.8) 06/05/19 05:18 RBC 4.69 10^6/uL (4.70-6.10) L 06/05/19 05:18 Hgb 13.6 g/dL (14.0-18.0) L 06/05/19 05:18 Hct 42.8 % (42.0-52.0) 06/05/19 05:18 MCV 91.3 fL (80.0-94.0) 06/05/19 05:18 MCH 29.0 pg (27.0-31.0) 06/05/19 05:18 MCHC 31.8 g/dL (32.0-36.0) L 06/05/19 05:18 RDW 15.6 % (12.0-15.0) H 06/05/19 05:18 Plt Count 228 10^3/uL (130-450) 06/05/19 05:18 MPV 11.4 fL (7.4-11.4) 06/05/19 05:18 Neut # (Auto) 7.4 10^3/uL (1.5-6.6) H 06/05/19 05:18 Lymph # (Auto) 1.0 10^3/uL (1.5-3.5) L 06/05/19 05:18 [place] # (Auto) 0.5 10^3/uL (0.0-1.0) 06/05/19 05:18 Eos # (Auto) 0.2 10^3/uL (0.0-0.7) 06/05/19 05:18 Baso # (Auto) 0.0 10^3/uL (0.0-0.1) 06/05/19 05:18 Absolute Nucleated RBC 0.00 x10^3/uL 06/05/19 05:18 Nucleated RBC % 0.0 /100WBC 06/05/19 05:18 PT 15.8 secs (9.9-12.6) H 06/03/19 05:37 INR 1.4 (0.8-1.2) H 06/03/19 05:37 APTT 28.4 secs (24.9-33.3) 05/25/19 17:25 Anti-Xa Level 0.0 U/mL (-0.7) 05/25/19 17:25 Sodium 140 mmol/L (135-145) 06/05/19 05:58 Potassium 3.6 mmol/L (3.5-5.0) 06/05/19 05:58 Chloride 108 mmol/L (101-111) 06/05/19 05:58 Carbon Dioxide 26 mmol/L (21-32) 06/05/19 05:58 Anion Gap 6.0 (6-13) 06/05/19 05:58 BUN 25 mg/dL (6-20) H 06/05/19 05:58 Creatinine 1.4 mg/dL (0.6-1.2) H 06/05/19 05:58 Estimated GFR (MDRD) 50 (>89) L 06/05/19 05:58 Glucose 107 mg/dL (70-100) H 06/05/19 05:58 POC Whole Bld Glucose 75 mg/dL (70 - 100) 06/05/19 11:37 Glycated Hemoglobin 5.3 % (4.6-6.2) 05/26/19 05:03 Estim Average Glucose 105 (70-100) H 05/26/19 05:03 Calcium 8.3 mg/dL (8.5-10.3) L 06/05/19 05:58 Phosphorus 3.0 mg/dL (2.5-4.6) 06/05/19 05:58 Magnesium 2.4 mg/dL (1.7-2.8) 06/05/19 05:58 Total Bilirubin 0.5 mg/dL (0.2-1.0) 06/05/19 05:58 AST 50 IU/L (10-42) H 06/05/19 05:58 ALT 34 IU/L (10-60) 06/05/19 05:58 Alkaline Phosphatase 110 IU/L (42-121) 06/05/19 05:58 Troponin I High Sens 134.5 ng/L (2.3-19.7) H* 05/25/19 21:05 B-Natriuretic Peptide 471 pg/mL (5-100) H 05/30/19 04:40 Total Protein 5.8 g/dL (6.7-8.2) L 06/05/19 05:58 Albumin 2.4 g/dL (3.2-5.5) L 06/05/19 05:58 Globulin 3.4 g/dL (2.1-4.2) 06/05/19 05:58 Albumin/Globulin Ratio 0.7 (1.0-2.2) L 06/05/19 05:58 Prealbumin 9 mg/dL (18-45) L 06/05/19 05:58 Triglycerides 70 mg/dL (-149) 05/26/19 05:03 Cholesterol 191 mg/dL (-199) 05/26/19 05:03 LDL Cholesterol, Calc 139 mg/dL (-129) H 05/26/19 05:03 VLDL Cholesterol 14 mg/dL 05/26/19 05:03 HDL Cholesterol 38 mg/dL (60-) L 05/26/19 05:03 LDL/HDL Ratio 3.7 (<3.6) 05/26/19 05:03 Cholesterol/HDL Ratio 5.0 (<5.0) 05/26/19 05:03 Lipase 23 U/L (22-51) 05/25/19 17:25 TSH 9.51 uIU/mL (0.34-5.60) H 05/26/19 05:03 Free T4 0.68 ng/dL (0.58-1.64) 05/30/19 04:40 Urine Color DARK YELLOW 06/03/19 17:35 Urine Clarity CLEAR (CLEAR) 06/03/19 17:35 Urine pH 5.5 PH (5.0-7.5) 06/03/19 17:35 Ur Specific Palms 1.025 (1.002-1.030) 06/03/19 17:35 Urine Protein 30 mg/dL (NEGATIVE) H 06/03/19 17:35 Urine Glucose (UA) NEGATIVE mg/dL (NEGATIVE) 06/03/19 17:35 Urine Ketones NEGATIVE mg/dL (NEGATIVE) 06/03/19 17:35 Urine Occult Blood SMALL (NEGATIVE) H 06/03/19 17:35 Urine Nitrite NEGATIVE (NEGATIVE) 06/03/19 17:35 Urine Bilirubin NEGATIVE (NEGATIVE) 06/03/19 17:35 Urine Urobilinogen 0.2 (NORMAL) E.U./dL (NORMAL) 06/03/19 17:35 Ur Leukocyte Esterase NEGATIVE (NEGATIVE) 06/03/19 17:35 Urine RBC 0-5 /HPF (0-5) 06/03/19 17:35 Urine WBC 0-3 /HPF (0-3) 06/03/19 17:35 Ur Squamous Epith Cells NONE SEEN (<= Few) 06/03/19 17:35 Amorphous Sediment Rare /LPF 06/03/19 17:35 Urine Bacteria Rare /HPF (None Seen) 06/03/19 17:35 Urine Casts 3-5 Granular Casts /LPF 06/03/19 17:35 Urine Mucus Few Strands 06/03/19 17:35 Ur Microscopic Review INDICATED 05/25/19 19:15 Urine Culture Comments NOT INDICATED 06/03/19 17:35 Coronavirus (PCR) NEGATIVE 05/28/19 10:26 ABX Reporting Has patient been on IV antibiotics over the past 48 hours?: No Current Medications - Current Medications Current Medications: Active Medications Acetaminophen (Tylenol) 640 mg NG Q4HR PRN PRN Reason: Pain 1 to 4 Last Admin: 06/03/19 15:53 Dose: 640 mg Apixaban (Eliquis) 5 mg PEG BID [facility] Last Admin: 06/05/19 09:16 Dose: 5 mg Aspirin ([facility] Aspirin) 81 mg PEG DAILY [facility] Last Admin: 06/05/19 09:17 Dose: 81 mg Atorvastatin Calcium (Lipitor) 80 mg NG QPM [facility] Last Admin: 06/04/19 21:27 Dose: 80 mg Carvedilol (Coreg) 12.5 mg NG BID [facility] Last Admin: 06/05/19 09:17 Dose: 12.5 mg Docusate Sodium (Colace 250mg Capsule) 250 - 500 mg PO DAILY [facility] Last Admin: 06/05/19 09:16 Dose: 250 mg Doxazosin Mesylate (Cardura) 4 mg PEG QPM [facility] Last Admin: 06/04/19 21:27 Dose: 4 mg Hydralazine HCl (Apresoline Inj) 10 mg IVP QID PRN PRN Reason: Hypertensive Emergency Last Admin: 06/04/19 12:28 Dose: 10 mg Lansoprazole (Prevacid) 30 mg PEG BID [facility] Last Admin: 06/05/19 11:31 Dose: 30 mg Levothyroxine Sodium (Synthroid) 112 mcg PEG QDAC [facility] Last Admin: 06/05/19 06:13 Dose: 112 mcg Lisinopril (Zestril) 30 mg NG DAILY [facility] Last Admin: 06/05/19 09:16 Dose: 30 mg Mineral Oil (Cavilon) 1 applic TOP PRN PRN PRN Reason: Skin Care Last Admin: 05/27/19 19:02 Dose: 1 applic Polyethylene Glycol (Miralax) 17 gm NG DAILY [facility] Last Admin: 06/05/19 09:16 Dose: 17 gm Saccharomyces Boulardii (Florastor) 250 mg PEG BIDWM [facility] Last Admin: 06/05/19 09:16 Dose: 250 mg Senna (Senokot) 8.6 - 17.2 mg NG DAILY [facility] Last Admin: 06/05/19 09:16 Dose: 8.6 mg Sodium Chloride (Normal Saline Flush 0.9%) 10 ml IVP PRN PRN PRN Reason: NEEDED PER PROVIDER ORDERS Last Admin: 06/03/19 06:33 Dose: 10 ml Sodium Chloride (Normal Saline Flush 0.9%) 10 ml IVP 0100,0900,1700 [facility] Last Admin: 06/05/19 11:38 Dose: 10 ml Amlodipine Besylate 10 mg PO DAILY 01/18/15 lisinopriL [Lisinopril] 20 mg PO DAILY 01/18/15 Carvedilol 12.5 mg PO DAILY 05/25/19 Furosemide 40 mg PO DAILY 05/25/19 Levothyroxine [Synthroid] 100 mcg PO DAILY 05/25/19 Warfarin Sodium 5 mg PO DAILY 05/25/19 amLODIPine [Norvasc] 10 mg PO DAILY 05/25/19
[2019-06-05] MEDS: DOXAZOSIN 4 MG TABLET PEG SCH (21:58)
[2019-06-05] MEDS: ATORVASTATIN 40 MG TABLET NG SCH (21:58)
[2019-06-06] MEDS: SODIUM CHLORIDE FLUSH 0.9% 10 ML SYRINGE IVP SCH ×3 (01:00→18:28)
[2019-06-06 05:35] LABS: BASOPHILS % (AUTO) 0.4 %; EOSINOPHILS # (AUTO) 0.2 10^3/uL (0.0-0.7); EOSINOPHILS % (AUTO) 2.4 %; HGB - HEMOGLOBIN 12.8 g/dL (14.0-18.0); LYMPHOCYTES # (AUTO) 1.1 10^3/uL (1.5-3.5); LYMPHOCYTES % (AUTO) 10.9 %; MEAN CORPUSCULAR HEMOGLOBIN 28.9 pg (27.0-31.0); MEAN CORPUSCULAR HGB CONC 31.6 g/dL (32.0-36.0); MEAN CORPUSCULAR VOLUME 91.4 fL (80.0-94.0); MEAN PLATELET VOLUME 11.2 fL (7.4-11.4); MONOCYTES # (AUTO) 0.5 10^3/uL (0.0-1.0); MONOCYTES % (AUTO) 5.2 %; NEUTROPHILS # (AUTO) 7.6 10^3/uL (1.5-6.6); NEUTROPHILS % (AUTO) 78.5 %; PLT - PLATELET COUNT 258 10^3/uL (130-450); RED BLOOD COUNT 4.43 10^6/uL (4.70-6.10); RED CELL DISTRIBUTION WIDTH 15.4 % (12.0-15.0); WHITE BLOOD COUNT 9.7 x10^3/uL (4.8-10.8)
[2019-06-06 05:45] LABS: CALCIUM 8.3 mg/dL (8.5-10.3); CREATININE 1.3 mg/dL (0.6-1.2)
[2019-06-06] MEDS: LEVOTHYROXINE 112 MCG TABLET PEG SCH (06:09)
[2019-06-06] MEDS: DOCUSATE SODIUM 250 MG CAPSULE PO SCH (09:21)
[2019-06-06] MEDS: SENNA 8.6 MG TABLET NG SCH (09:21)
[2019-06-06] MEDS: SACCHAROMYCES BOULARDII 250 MG CAPSULE PEG SCH ×2 (09:21→18:28)
[2019-06-06] MEDS: APIXABAN 5 MG TABLET PEG SCH ×2 (09:21→21:58)
[2019-06-06] MEDS: lisinopriL 20 MG TABLET NG SCH (09:21)
[2019-06-06] MEDS: carvediloL 12.5 MG TABLET NG SCH ×2 (09:22→21:59)
[2019-06-06] MEDS: polyethylene glycoL 3350 17 GM PACKET NG SCH (09:22)
[2019-06-06] MEDS: ASPIRIN CHEW 81 MG TABLET PEG SCH (09:22)
[2019-06-06] MEDS: LANSOPRAZOLE 15 MG CAPSULE PEG SCH ×2 (09:27→21:58)
--- NOTE | 2019-06-06 10:31 | PROVIDER PROGRESS NOTE ---
Assessment/Plan - Problem List (1) Cerebrovascular accident (CVA) Qualifiers: CVA mechanism: thrombosis Laterality of affected vessel: right Assessment/Plan: 06/05 stable. regard of pt's right internal carotid occlusion, in 05/25 's note "Carotid ultrasound today revealed a 100% occluded right internal carotid artery above the bifurcation. I discussed these findings with the radiologist regarding the critical nature of the occlusion, and I also reached out to [facility] neurology on-call physician who recommended medical management at this point given that the onset of symptoms was more than 36 hours at the time of these findings and also because the patient presented about a day after the onset of weakness. He is not a candidate for any other interventional procedure and medical management is advised." replacement is pending continue PT/OT continue aspirin and statin 06/04 pt is stable, pt is pending for replacement continue PT/OT continue aspirin and statin continue oncology social worker consult for replacement 06/03 pt report he feel good, no complaint. pt is pending for replacement. continue PT/OT evaluation and treatment, continue oncology social worker consult for replacement continue aspirin and statin gradually some improved. continue PT/OT evaluation and treatment. per PT/OT recommendation, pt is pending for replacement for SNF, consulted with oncology social worker for safely d/c plan continue aspirin and statin (2) Dysphagia 06/04 pt tolerate PEG tube feeding, no complaint 06/03 pt tolerate tube feeding well. increase to feeding goal 80cc/h of Jevity 1.2, plus free water and flush water. PEG tube placed. surgeon suggest we can use fluid dosage as needed. continue consult with assembly person, continue Tube feeding, will reach feeding Maximum dosage gradually (3) Aspiration pneumonia Assessment/Plan: 06/04 pt has no cough, wheezing, fever or chill. pt has 99% sats on room air. antibiotics is finished now 06/03 continue Augmentin for total 7-10 days plus probiotics pt had fiver days unasyn IV, today switch to PO Augmentin for (4)right posterior mediastinal calcified lymph node 06/03 stable, no more fever. blood culture is negative for bacteremia. CXR reveals pt has 4X2.7 cm calcified right posterior mediastinal lymph node, as before, pt had CXR on 05/28/2019 and chest 2 view on 01/17/2015. discussed with pt about the finding, advise pt followup real estate sales supervisor for further management as needed. pt understood. (5) Atrial fibrillation with rapid ventricular response Assessment/Plan: stable HR A PEG tube was placed. As a result pt was resumed patient's Coreg and increased to Bid Coreg. hold IV of Metoprolol (6) Hypothyroidism Assessment/Plan: TSH is high and Free T4 is at lower side of normal, increase Synthroid to 112 mcg daily from home 100 mcg daily (7) Hypertension stable, Continue patient's current medications Coreg 12.5 mg via feeding tube twice daily. Lisinopril daily. Hydralazine as needed. (8) Left ventricular dysfunction with reduced left ventricular function Assessment/Plan: pt EF is 25-30%, Continue Coreg, Lisinopril, caution to fluid over loaded. (9) CKD 06/03 stable, creatinine 1.8 as his baseline. continue keep pt hydration enough with Tube feeding pt had hx of CKD at stage 3, today his creatinine is increasing slightly, pt is clinic dehydration with elevated temperature. gently IVF to pt, and lab monitor. - Current Meds Current Meds: Current Medications Generic Name Dose Route Start Last Admin Trade Name Freq PRN Reason Stop Dose Admin Acetaminophen 640 mg 06/02/19 13:01 06/03/19 15:53 Tylenol NG 640 mg Q4HR PRN Administration Pain 1 to 4 Apixaban 5 mg 06/03/19 21:00 06/06/19 09:21 Eliquis PEG 5 mg BID LUIS Administration Aspirin 81 mg 06/03/19 09:00 06/06/19 09:22 [facility] Aspirin PEG 81 mg DAILY LUIS Administration Atorvastatin Calcium 80 mg 06/02/19 13:00 06/05/19 21:58 Lipitor NG 80 mg QPM LUIS Administration Carvedilol 12.5 mg 06/02/19 13:30 06/06/19 09:22 Coreg NG 12.5 mg BID LUIS Administration Docusate Sodium 250 - 500 mg 05/26/19 09:00 06/06/19 09:21 Colace 250mg Capsule PO 250 mg DAILY LUIS Administration Doxazosin Mesylate 4 mg 06/02/19 21:00 06/05/19 21:58 Cardura PEG 4 mg QPM LUIS Administration Hydralazine HCl 10 mg 05/29/19 11:01 06/04/19 12:28 Apresoline Inj IVP 10 mg QID PRN Administration Hypertensive Emergency Lansoprazole 30 mg 06/02/19 14:00 06/06/19 09:27 Prevacid PEG 30 mg BID LUIS Administration Levothyroxine Sodium 112 mcg 06/04/19 07:00 06/06/19 06:09 Synthroid PEG 112 mcg QDAC LUIS Administration Lisinopril 30 mg 06/02/19 13:30 06/06/19 09:21 Zestril NG 30 mg DAILY LUIS Administration Mineral Oil 1 applic 05/26/19 01:27 05/27/19 19:02 Cavilon TOP 1 applic PRN PRN Administration Skin Care Polyethylene Glycol 17 gm 06/02/19 13:30 06/06/19 09:22 Miralax NG 17 gm DAILY LUIS Administration Saccharomyces Boulardii 250 mg 06/04/19 17:00 06/06/19 09:21 Florastor PEG 250 mg BIDWM LUIS Administration Senna 8.6 - 17.2 mg 06/02/19 13:30 06/06/19 09:21 Senokot NG 8.6 mg DAILY LUIS Administration Sodium Chloride 10 ml 05/25/19 19:23 06/03/19 06:33 Normal Saline Flush 0.9% IVP 10 ml PRN PRN Administration NEEDED PER PROVIDER ORDERS Sodium Chloride 10 ml 05/26/19 01:00 06/06/19 10:01 Normal Saline Flush 0.9% IVP 10 ml 0100,0900,1700 LUIS Administration - Lab Result Fish Bone Diagrams: 06/06/19 05:20 06/06/19 05:20 - Additional Planning My Orders: My Active Orders 06/07/19 05:00 BMP - BASIC METABOLIC PANEL [CHEM] DAILYLAB CBC - COMP BLD CT W/AUTO DIFF [HEME] DAILYLAB 06/08/19 05:00 BMP - BASIC METABOLIC PANEL [CHEM] DAILYLAB CBC - COMP BLD CT W/AUTO DIFF [HEME] DAILYLAB 06/09/19 05:00 BMP - BASIC METABOLIC PANEL [CHEM] DAILYLAB CBC - COMP BLD CT W/AUTO DIFF [HEME] DAILYLAB Subjective - Subjective Patient Reports: Feeling Better Objective Vital Signs: Vital Signs - 24 hr 06/05/19 06/05/19 06/05/19 13:00 16:22 16:25 Temperature 36.1 C L 96.5 C H 36.8 C Heart Rate [ 56 L 79 Brachial] Respiratory 15 15 Rate Blood Pressure 128/74 144/88 H [Right Brachial artery] O2 Saturation 93 99 06/05/19 06/05/19 06/06/19 21:00 23:56 05:00 Temperature 36.7 C 36.3 C L 37.0 C Heart Rate [ 68 107 H 77 Brachial] Respiratory 15 17 20 Rate Blood Pressure 156/96 H 142/92 H 139/87 H [Right Brachial artery] O2 Saturation 99 99 98 06/06/19 07:42 Temperature 36.1 C L Heart Rate [ 86 Brachial] Respiratory 16 Rate Blood Pressure 131/81 H [Right Brachial artery] O2 Saturation 98 Oxygen O2 Source Room air I&O (Last 24 Hrs): Intake and Output Totals x24h 06/04/19 06/05/19 06/06/19 23:59 23:59 23:59 Intake Total 3080.000 2577 1007 Output Total 1540 1710 750 Balance 1540.000 867 257 General: Alert, No acute distress HEENT: Atraumatic Neck: Supple Lymphatic: no adenopathy Neuro: Alert, Non Focal, Oriented Times 3 Cardiovascular: Regular rate, Normal S1, Normal S2 Respiratory: Chest non-tender, No respiratory distress Abdomen: Normal bowel sounds, Soft Extremities: Normal pulses - Results Results: Laboratory Results WBC 9.7 x10^3/uL (4.8-10.8) 06/06/19 05:20 RBC 4.43 10^6/uL (4.70-6.10) L 06/06/19 05:20 Hgb 12.8 g/dL (14.0-18.0) L 06/06/19 05:20 Hct 40.5 % (42.0-52.0) L 06/06/19 05:20 MCV 91.4 fL (80.0-94.0) 06/06/19 05:20 MCH 28.9 pg (27.0-31.0) 06/06/19 05:20 MCHC 31.6 g/dL (32.0-36.0) L 06/06/19 05:20 RDW 15.4 % (12.0-15.0) H 06/06/19 05:20 Plt Count 258 10^3/uL (130-450) 06/06/19 05:20 MPV 11.2 fL (7.4-11.4) 06/06/19 05:20 Neut # (Auto) 7.6 10^3/uL (1.5-6.6) H 06/06/19 05:20 Lymph # (Auto) 1.1 10^3/uL (1.5-3.5) L 06/06/19 05:20 [place] # (Auto) 0.5 10^3/uL (0.0-1.0) 06/06/19 05:20 Eos # (Auto) 0.2 10^3/uL (0.0-0.7) 06/06/19 05:20 Baso # (Auto) 0.0 10^3/uL (0.0-0.1) 06/06/19 05:20 Absolute Nucleated RBC 0.00 x10^3/uL 06/06/19 05:20 Nucleated RBC % 0.0 /100WBC 06/06/19 05:20 PT 15.8 secs (9.9-12.6) H 06/03/19 05:37 INR 1.4 (0.8-1.2) H 06/03/19 05:37 APTT 28.4 secs (24.9-33.3) 05/25/19 17:25 Anti-Xa Level 0.0 U/mL (-0.7) 05/25/19 17:25 Sodium 141 mmol/L (135-145) 06/06/19 05:20 Potassium 3.9 mmol/L (3.5-5.0) 06/06/19 05:20 Chloride 110 mmol/L (101-111) 06/06/19 05:20 Carbon Dioxide 22 mmol/L (21-32) 06/06/19 05:20 Anion Gap 9.0 (6-13) 06/06/19 05:20 BUN 26 mg/dL (6-20) H 06/06/19 05:20 Creatinine 1.3 mg/dL (0.6-1.2) H 06/06/19 05:20 Estimated GFR (MDRD) 55 (>89) L 06/06/19 05:20 Glucose 101 mg/dL (70-100) H 06/06/19 05:20 POC Whole Bld Glucose 118 mg/dL (70 - 100) H 06/06/19 05:21 Glycated Hemoglobin 5.3 % (4.6-6.2) 05/26/19 05:03 Estim Average Glucose 105 (70-100) H 05/26/19 05:03 Calcium 8.3 mg/dL (8.5-10.3) L 06/06/19 05:20 Phosphorus 3.0 mg/dL (2.5-4.6) 06/05/19 05:58 Magnesium 2.4 mg/dL (1.7-2.8) 06/05/19 05:58 Total Bilirubin 0.5 mg/dL (0.2-1.0) 06/05/19 05:58 AST 50 IU/L (10-42) H 06/05/19 05:58 ALT 34 IU/L (10-60) 06/05/19 05:58 Alkaline Phosphatase 110 IU/L (42-121) 06/05/19 05:58 Troponin I High Sens 134.5 ng/L (2.3-19.7) H* 05/25/19 21:05 B-Natriuretic Peptide 471 pg/mL (5-100) H 05/30/19 04:40 Total Protein 5.8 g/dL (6.7-8.2) L 06/05/19 05:58 Albumin 2.4 g/dL (3.2-5.5) L 06/05/19 05:58 Globulin 3.4 g/dL (2.1-4.2) 06/05/19 05:58 Albumin/Globulin Ratio 0.7 (1.0-2.2) L 06/05/19 05:58 Prealbumin 9 mg/dL (18-45) L 06/05/19 05:58 Triglycerides 70 mg/dL (-149) 05/26/19 05:03 Cholesterol 191 mg/dL (-199) 05/26/19 05:03 LDL Cholesterol, Calc 139 mg/dL (-129) H 05/26/19 05:03 VLDL Cholesterol 14 mg/dL 05/26/19 05:03 HDL Cholesterol 38 mg/dL (60-) L 05/26/19 05:03 LDL/HDL Ratio 3.7 (<3.6) 05/26/19 05:03 Cholesterol/HDL Ratio 5.0 (<5.0) 05/26/19 05:03 Lipase 23 U/L (22-51) 05/25/19 17:25 TSH 9.51 uIU/mL (0.34-5.60) H 05/26/19 05:03 Free T4 0.68 ng/dL (0.58-1.64) 05/30/19 04:40 Urine Color DARK YELLOW 06/03/19 17:35 Urine Clarity CLEAR (CLEAR) 06/03/19 17:35 Urine pH 5.5 PH (5.0-7.5) 06/03/19 17:35 Ur Specific [place] 1.025 (1.002-1.030) 06/03/19 17:35 Urine Protein 30 mg/dL (NEGATIVE) H 06/03/19 17:35 Urine Glucose (UA) NEGATIVE mg/dL (NEGATIVE) 06/03/19 17:35 Urine Ketones NEGATIVE mg/dL (NEGATIVE) 06/03/19 17:35 Urine Occult Blood SMALL (NEGATIVE) H 06/03/19 17:35 Urine Nitrite NEGATIVE (NEGATIVE) 06/03/19 17:35 Urine Bilirubin NEGATIVE (NEGATIVE) 06/03/19 17:35 Urine Urobilinogen 0.2 (NORMAL) E.U./dL (NORMAL) 06/03/19 17:35 Ur Leukocyte Esterase NEGATIVE (NEGATIVE) 06/03/19 17:35 Urine RBC 0-5 /HPF (0-5) 06/03/19 17:35 Urine WBC 0-3 /HPF (0-3) 06/03/19 17:35 Ur Squamous Epith Cells NONE SEEN (<= Few) 06/03/19 17:35 Amorphous Sediment Rare /LPF 06/03/19 17:35 Urine Bacteria Rare /HPF (None Seen) 06/03/19 17:35 Urine Casts 3-5 Granular Casts /LPF 06/03/19 17:35 Urine Mucus Few Strands 06/03/19 17:35 Ur Microscopic Review INDICATED 05/25/19 19:15 Urine Culture Comments NOT INDICATED 06/03/19 17:35 Coronavirus (PCR) NEGATIVE 05/28/19 10:26 ABX Reporting Has patient been on IV antibiotics over the past 48 hours?: No Current Medications - Current Medications Current Medications: Active Medications Acetaminophen (Tylenol) 640 mg NG Q4HR PRN PRN Reason: Pain 1 to 4 Last Admin: 06/03/19 15:53 Dose: 640 mg Apixaban (Eliquis) 5 mg PEG BID [facility] Last Admin: 06/06/19 09:21 Dose: 5 mg Aspirin ([facility]avi Aspirin) 81 mg PEG DAILY [facility] Last Admin: 06/06/19 09:22 Dose: 81 mg Atorvastatin Calcium (Lipitor) 80 mg NG QPM [facility] Last Admin: 06/05/19 21:58 Dose: 80 mg Carvedilol (Coreg) 12.5 mg NG BID [facility] Last Admin: 06/06/19 09:22 Dose: 12.5 mg Docusate Sodium (Colace 250mg Capsule) 250 - 500 mg PO DAILY [facility] Last Admin: 06/06/19 09:21 Dose: 250 mg Doxazosin Mesylate (Cardura) 4 mg PEG QPM [facility] Last Admin: 06/05/19 21:58 Dose: 4 mg Hydralazine HCl (Apresoline Inj) 10 mg IVP QID PRN PRN Reason: Hypertensive Emergency Last Admin: 06/04/19 12:28 Dose: 10 mg Lansoprazole (Prevacid) 30 mg PEG BID [facility] Last Admin: 06/06/19 09:27 Dose: 30 mg Levothyroxine Sodium (Synthroid) 112 mcg PEG QDAC [facility] Last Admin: 06/06/19 06:09 Dose: 112 mcg Lisinopril (Zestril) 30 mg NG DAILY [facility] Last Admin: 06/06/19 09:21 Dose: 30 mg Mineral Oil (Cavilon) 1 applic TOP PRN PRN PRN Reason: Skin Care Last Admin: 05/27/19 19:02 Dose: 1 applic Polyethylene Glycol (Miralax) 17 gm NG DAILY [facility] Last Admin: 06/06/19 09:22 Dose: 17 gm Saccharomyces Boulardii (Florastor) 250 mg PEG BIDWM [facility] Last Admin: 06/06/19 09:21 Dose: 250 mg Senna (Senokot) 8.6 - 17.2 mg NG DAILY [facility] Last Admin: 06/06/19 09:21 Dose: 8.6 mg Sodium Chloride (Normal Saline Flush 0.9%) 10 ml IVP PRN PRN PRN Reason: NEEDED PER PROVIDER ORDERS Last Admin: 06/03/19 06:33 Dose: 10 ml Sodium Chloride (Normal Saline Flush 0.9%) 10 ml IVP 0100,0900,1700 LUIS Last Admin: 06/06/19 10:01 Dose: 10 ml Amlodipine Besylate 10 mg PO DAILY 01/18/15 lisinopriL [Lisinopril] 20 mg PO DAILY 01/18/15 Carvedilol 12.5 mg PO DAILY 05/25/19 Furosemide 40 mg PO DAILY 05/25/19 Levothyroxine [Synthroid] 100 mcg PO DAILY 05/25/19 Warfarin Sodium 5 mg PO DAILY 05/25/19 amLODIPine [Norvasc] 10 mg PO DAILY 05/25/19
[2019-06-06] MEDS: ATORVASTATIN 40 MG TABLET NG SCH (21:58)
[2019-06-06] MEDS: DOXAZOSIN 4 MG TABLET PEG SCH (21:58)
[2019-06-07] MEDS: SODIUM CHLORIDE FLUSH 0.9% 10 ML SYRINGE IVP SCH ×3 (00:27→16:56)
[2019-06-07 06:09] LABS: BASOPHILS % (AUTO) 0.2 %; EOSINOPHILS # (AUTO) 0.2 10^3/uL (0.0-0.7); EOSINOPHILS % (AUTO) 1.8 %; HGB - HEMOGLOBIN 12.6 g/dL (14.0-18.0); LYMPHOCYTES # (AUTO) 1.1 10^3/uL (1.5-3.5); LYMPHOCYTES % (AUTO) 9.7 %; MEAN CORPUSCULAR HGB CONC 31.1 g/dL (32.0-36.0); MEAN PLATELET VOLUME 11.9 fL (7.4-11.4); MONOCYTES # (AUTO) 0.7 10^3/uL (0.0-1.0); MONOCYTES % (AUTO) 6.1 %; NEUTROPHILS # (AUTO) 8.8 10^3/uL (1.5-6.6); NEUTROPHILS % (AUTO) 79.5 %; PLT - PLATELET COUNT 233 10^3/uL (130-450); RED CELL DISTRIBUTION WIDTH 15.6 % (12.0-15.0)
[2019-06-07 06:16] LABS: CALCIUM 8.1 mg/dL (8.5-10.3); CREATININE 1.1 mg/dL (0.6-1.2)
[2019-06-07] MEDS: LEVOTHYROXINE 112 MCG TABLET PEG SCH (06:22)
[2019-06-07] MEDS: APIXABAN 5 MG TABLET PEG SCH ×2 (08:41→20:52)
[2019-06-07] MEDS: LANSOPRAZOLE 15 MG CAPSULE PEG SCH ×2 (08:41→20:52)
[2019-06-07] MEDS: polyethylene glycoL 3350 17 GM PACKET NG SCH (08:41)
[2019-06-07] MEDS: ASPIRIN CHEW 81 MG TABLET PEG SCH (08:41)
[2019-06-07] MEDS: lisinopriL 20 MG TABLET NG SCH (08:41)
[2019-06-07] MEDS: DOCUSATE SODIUM 250 MG CAPSULE PO SCH (08:41)
[2019-06-07] MEDS: carvediloL 12.5 MG TABLET NG SCH ×2 (08:41→20:53)
[2019-06-07] MEDS: SENNA 8.6 MG TABLET NG SCH (08:42)
[2019-06-07] MEDS: SACCHAROMYCES BOULARDII 250 MG CAPSULE PEG SCH ×2 (08:44→16:56)
--- NOTE | 2019-06-07 19:07 | PROVIDER PROGRESS NOTE ---
Assessment/Plan - Problem List (1) Cerebrovascular accident (CVA) Qualifiers: CVA mechanism: thrombosis Laterality of affected vessel: right Assessment/Plan: With left-sided hemiparesis as deficits. PT OT continues to work with patient. Patient pending placement. Anticipated day of transfer is Monday, June 10, 2019 (2) Dysphagia Qualifiers: Dysphagia type: unspecified Qualified Code(s): R13.10 - Dysphagia, unspecified Assessment/Plan: Patient tolerating tube feedings well On Jevity 1.2 at 80 mils per hour (3) Aspiration pneumonia Assessment/Plan: Patient had 5 days of Unasyn. His white blood cell count normalized and he has been afebrile. Today his WBC is 11 we will monitor for any signs of infection. (4) Atrial fibrillation with rapid ventricular response Assessment/Plan: On Coreg twice daily and Eliquis 5mg twice daily (5) Chronic kidney disease, stage III (moderate) Assessment/Plan: Creatinine today is 1.1 and GFR 66. We will continue gentle hydration along with tube feeding. (6) Hypothyroidism Assessment/Plan: On Synthroid 112 mcg daily. This is an increase from his home dose of 100 mcg daily. (7) Hypertension Qualifiers: Hypertension type: essential hypertension Qualified Code(s): I10 - E ssential (primary) hypertension Assessment/Plan: On Coreg 12.5 mg twice daily and lisinopril daily. Hydralazine as needed. (8) Left ventricular dysfunction with reduced left ventricular function Assessment/Plan: On Coreg and lisinopril - Current Meds Current Meds: Current Medications Generic Name Dose Route Start Last Admin Trade Name Freq PRN Reason Stop Dose Admin Acetaminophen 640 mg 06/02/19 13:01 06/03/19 15:53 Tylenol NG 640 mg Q4HR PRN Administration Pain 1 to 4 Apixaban 5 mg 06/03/19 21:00 06/07/19 08:41 Eliquis PEG 5 mg BID LUIS Administration Aspirin 81 mg 06/03/19 09:00 06/07/19 08:41 [facility] Aspirin PEG 81 mg DAILY [facility]IS Administration Atorvastatin Calcium 80 mg 06/02/19 13:00 06/06/19 21:58 Lipitor NG 80 mg QPM LUIS Administration Carvedilol 12.5 mg 06/02/19 13:30 04/25/20 08:41 Coreg NG 12.5 mg BID LUIS Administration Docusate Sodium 250 - 500 mg 05/26/19 09:00 06/07/19 08:41 Colace 250mg Capsule PO Not Given DAILY [facility]IS Doxazosin Mesylate 4 mg 06/02/19 21:00 06/06/19 21:58 Cardura PEG 4 mg QPM [facility]IS Administration Hydralazine HCl 10 mg 05/29/19 11:01 06/04/19 12:28 Apresoline Inj IVP 10 mg QID PRN Administration Hypertensive Emergency Lansoprazole 30 mg 06/02/19 14:00 06/07/19 08:41 Prevacid PEG 30 mg BID LUIS Administration Levothyroxine Sodium 112 mcg 06/04/19 07:00 06/07/19 06:22 Synthroid PEG 112 mcg QDAC LUIS Administration Lisinopril 30 mg 06/02/19 13:30 06/07/19 08:41 Zestril NG 30 mg DAILY [facility]IS Administration Mineral Oil 1 applic 05/26/19 01:27 05/27/19 19:02 Cavilon TOP 1 applic PRN PRN Administration Skin Care Polyethylene Glycol 17 gm 06/02/19 13:30 06/07/19 08:41 Miralax NG Not Given DAILY [facility] Saccharomyces Boulardii 250 mg 06/04/19 17:00 06/07/19 16:56 Florastor PEG 250 mg BIDWM LUIS Administration Senna 8.6 - 17.2 mg 06/02/19 13:30 06/07/19 08:42 Senokot NG Not Given DAILY [facility] Sodium Chloride 10 ml 05/25/19 19:23 06/03/19 06:33 Normal Saline Flush 0.9% IVP 10 ml PRN PRN Administration NEEDED PER PROVIDER ORDERS Sodium Chloride 10 ml 05/26/19 01:00 06/07/19 16:56 Normal Saline Flush 0.9% IVP 10 ml 0100,0900,1700 LUIS Administration - Lab Result Fish Bone Diagrams: 06/07/19 05:25 06/07/19 05:25 - Additional Planning My Orders: My Active Orders 06/08/19 05:00 COMPREHENSIVE METABOLIC PANEL [CHEM] Timed MAGNESIUM [CHEM] Timed PHOSPHORUS [CHEM] Timed PREALBUMIN [CHEM] Timed Subjective - Subjective Patient Reports: Other (Patient seen and examined this evening. He appeared drowsy and restless at the time of the exam. However he was oriented to himself and where he was. He denied any pain. It was reported by nursing staff that he had been sitting in his chair all day and had just been transferred back to the bed before this exam.) Objective Vital Signs: Vital Signs - 24 hr 06/06/19 06/06/19 06/07/19 20:43 23:58 05:00 Temperature 36.3 C L 36.2 C L 36.5 C Heart Rate [ 77 Brachial] Heart Rate [ 71 97 Monitoring electrodes] Respiratory 18 20 18 Rate Blood Pressure 144/84 H [Left Brachial artery] Blood Pressure 145/109 H 128/92 H [Right Brachial artery] O2 Saturation 97 96 96 06/07/19 06/07/19 06/07/19 07:43 12:00 12:50 Temperature 96.7 C H 37.1 C 37.1 C Heart Rate [ 109 H 98 76 Brachial] Heart Rate [ Monitoring electrodes] Respiratory 18 18 20 Rate Blood Pressure [Left Brachial artery] Blood Pressure 135/91 H 146/86 H 146/86 H [Right Brachial artery] O2 Saturation 98 96 96 06/07/19 15:34 Temperature 36.1 C L Heart Rate [ Brachial] Heart Rate [ 77 Monitoring electrodes] Respiratory 20 Rate Blood Pressure [Left Brachial artery] Blood Pressure 145/91 H [Right Brachial artery] O2 Saturation 97 Oxygen O2 Source Room air I&O (Last 24 Hrs): Intake and Output Totals x24h 06/05/19 06/06/19 06/07/19 23:59 23:59 23:59 Intake Total 2577 1187 2454 Output Total 1710 1450 2300 Balance 867 -263 154 General: Alert, Other (orientedX2, drowsy, restless) HEENT: PERRLA, EOMI Neck: Supple, No JVD Neuro: Other (left sided weakness still present) Cardiovascular: Other (irregularly irregular) Respiratory: Chest non-tender, No respiratory distress, Breath sounds nml Abdomen: Normal bowel sounds, Soft Extremities: No clubbing, No cyanosis, No edema Skin: No rashes - Results Results: Laboratory Results WBC 11.0 x10^3/uL (4.8-10.8) H 06/07/19 05:25 RBC 4.50 10^6/uL (4.70-6.10) L 04/25/20 05:25 Hgb 12.6 g/dL (14.0-18.0) L 06/07/19 05:25 Hct 40.5 % (42.0-52.0) L 06/07/19 05:25 MCV 90.0 fL (80.0-94.0) 06/07/19 05:25 MCH 28.0 pg (27.0-31.0) 06/07/19 05:25 MCHC 31.1 g/dL (32.0-36.0) L 06/07/19 05:25 RDW 15.6 % (12.0-15.0) H 06/07/19 05:25 Plt Count 233 10^3/uL (130-450) 06/07/19 05:25 MPV 11.9 fL (7.4-11.4) H 06/07/19 05:25 Neut # (Auto) 8.8 10^3/uL (1.5-6.6) H 06/07/19 05:25 Lymph # (Auto) 1.1 10^3/uL (1.5-3.5) L 06/07/19 05:25 [place] # (Auto) 0.7 10^3/uL (0.0-1.0) 06/07/19 05:25 Eos # (Auto) 0.2 10^3/uL (0.0-0.7) 06/07/19 05:25 Baso # (Auto) 0.0 10^3/uL (0.0-0.1) 06/07/19 05:25 Absolute Nucleated RBC 0.00 x10^3/uL 06/07/19 05:25 Nucleated RBC % 0.0 /100WBC 06/07/19 05:25 PT 15.8 secs (9.9-12.6) H 06/03/19 05:37 INR 1.4 (0.8-1.2) H 06/03/19 05:37 APTT 28.4 secs (24.9-33.3) 05/25/19 17:25 Anti-Xa Level 0.0 U/mL (-0.7) 05/25/19 17:25 Sodium 138 mmol/L (135-145) 06/07/19 05:25 Potassium 4.1 mmol/L (3.5-5.0) 06/07/19 05:25 Chloride 107 mmol/L (101-111) 06/07/19 05:25 Carbon Dioxide 22 mmol/L (21-32) 06/07/19 05:25 Anion Gap 9.0 (6-13) 06/07/19 05:25 BUN 25 mg/dL (6-20) H 06/07/19 05:25 Creatinine 1.1 mg/dL (0.6-1.2) 06/07/19 05:25 Estimated GFR (MDRD) 66 (>89) L 06/07/19 05:25 Glucose 118 mg/dL (70-100) H 06/07/19 05:25 POC Whole Bld Glucose 110 mg/dL (70 - 100) H 06/07/19 17:51 Glycated Hemoglobin 5.3 % (4.6-6.2) 05/26/19 05:03 Estim Average Glucose 105 (70-100) H 05/26/19 05:03 Calcium 8.1 mg/dL (8.5-10.3) L 06/07/19 05:25 Phosphorus 3.0 mg/dL (2.5-4.6) 06/05/19 05:58 Magnesium 2.4 mg/dL (1.7-2.8) 06/05/19 05:58 Total Bilirubin 0.5 mg/dL (0.2-1.0) 06/05/19 05:58 AST 50 IU/L (10-42) H 06/05/19 05:58 ALT 34 IU/L (10-60) 06/05/19 05:58 Alkaline Phosphatase 110 IU/L (42-121) 06/05/19 05:58 Troponin I High Sens 134.5 ng/L (2.3-19.7) H* 05/25/19 21:05 B-Natriuretic Peptide 471 pg/mL (5-100) H 05/30/19 04:40 Total Protein 5.8 g/dL (6.7-8.2) L 06/05/19 05:58 Albumin 2.4 g/dL (3.2-5.5) L 06/05/19 05:58 Globulin 3.4 g/dL (2.1-4.2) 06/05/19 05:58 Albumin/Globulin Ratio 0.7 (1.0-2.2) L 06/05/19 05:58 Prealbumin 9 mg/dL (18-45) L 06/05/19 05:58 Triglycerides 70 mg/dL (-149) 05/26/19 05:03 Cholesterol 191 mg/dL (-199) 05/26/19 05:03 LDL Cholesterol, Calc 139 mg/dL (-129) H 05/26/19 05:03 VLDL Cholesterol 14 mg/dL 05/26/19 05:03 HDL Cholesterol 38 mg/dL (60-) L 05/26/19 05:03 LDL/HDL Ratio 3.7 (<3.6) 05/26/19 05:03 Cholesterol/HDL Ratio 5.0 (<5.0) 05/26/19 05:03 Lipase 23 U/L (22-51) 05/25/19 17:25 TSH 9.51 uIU/mL (0.34-5.60) H 05/26/19 05:03 Free T4 0.68 ng/dL (0.58-1.64) 05/30/19 04:40 Urine Color DARK YELLOW 06/03/19 17:35 Urine Clarity CLEAR (CLEAR) 06/03/19 17:35 Urine pH 5.5 PH (5.0-7.5) 06/03/19 17:35 Ur Specific [place] 1.025 (1.002-1.030) 06/03/19 17:35 Urine Protein 30 mg/dL (NEGATIVE) H 06/03/19 17:35 Urine Glucose (UA) NEGATIVE mg/dL (NEGATIVE) 06/03/19 17:35 Urine Ketones NEGATIVE mg/dL (NEGATIVE) 06/03/19 17:35 Urine Occult Blood SMALL (NEGATIVE) H 06/03/19 17:35 Urine Nitrite NEGATIVE (NEGATIVE) 06/03/19 17:35 Urine Bilirubin NEGATIVE (NEGATIVE) 06/03/19 17:35 Urine Urobilinogen 0.2 (NORMAL) E.U./dL (NORMAL) 06/03/19 17:35 Ur Leukocyte Esterase NEGATIVE (NEGATIVE) 06/03/19 17:35 Urine RBC 0-5 /HPF (0-5) 06/03/19 17:35 Urine WBC 0-3 /HPF (0-3) 06/03/19 17:35 Ur Squamous Epith Cells NONE SEEN (<= Few) 06/03/19 17:35 Amorphous Sediment Rare /LPF 06/03/19 17:35 Urine Bacteria Rare /HPF (None Seen) 06/03/19 17:35 Urine Casts 3-5 Granular Casts /LPF 06/03/19 17:35 Urine Mucus Few Strands 06/03/19 17:35 Ur Microscopic Review INDICATED 05/25/19 19:15 Urine Culture Comments NOT INDICATED 06/03/19 17:35 Coronavirus (PCR) NEGATIVE 05/28/19 10:26 ABX Reporting Has patient been on IV antibiotics over the past 48 hours?: No
[2019-06-07] MEDS: DOXAZOSIN 4 MG TABLET PEG SCH (20:52)
[2019-06-07] MEDS: ATORVASTATIN 40 MG TABLET NG SCH (20:53)
[2019-06-08] MEDS: SODIUM CHLORIDE FLUSH 0.9% 10 ML SYRINGE IVP SCH ×3 (02:01→17:13)
[2019-06-08 06:10] LABS: BASOPHILS % (AUTO) 0.2 %; EOSINOPHILS # (AUTO) 0.2 10^3/uL (0.0-0.7); EOSINOPHILS % (AUTO) 2.1 %; HGB - HEMOGLOBIN 13.2 g/dL (14.0-18.0); LYMPHOCYTES % (AUTO) 9.9 %; MEAN CORPUSCULAR HEMOGLOBIN 28.1 pg (27.0-31.0); MEAN CORPUSCULAR HGB CONC 30.8 g/dL (32.0-36.0); MEAN CORPUSCULAR VOLUME 91.1 fL (80.0-94.0); MEAN PLATELET VOLUME 11.3 fL (7.4-11.4); MONOCYTES # (AUTO) 0.7 10^3/uL (0.0-1.0); MONOCYTES % (AUTO) 7.2 %; NEUTROPHILS % (AUTO) 78.3 %; PLT - PLATELET COUNT 248 10^3/uL (130-450); RED CELL DISTRIBUTION WIDTH 15.4 % (12.0-15.0); WHITE BLOOD COUNT 10.2 x10^3/uL (4.8-10.8)
[2019-06-08 06:25] LABS: ALBUMIN 2.6 g/dL (3.2-5.5); ALBUMIN/GLOBULIN RATIO 0.7 (1.0-2.2); BILIRUBIN,TOTAL 0.7 mg/dL (0.2-1.0); CALCIUM 8.4 mg/dL (8.5-10.3); CREATININE 1.3 mg/dL (0.6-1.2); MAGNESIUM 2.6 mg/dL (1.7-2.8); PHOSPHORUS 4.6 mg/dL (2.5-4.6); TOTAL PROTEIN 6.2 g/dL (6.7-8.2)
[2019-06-08] MEDS: LEVOTHYROXINE 112 MCG TABLET PEG SCH (06:45)
[2019-06-08] MEDS: polyethylene glycoL 3350 17 GM PACKET NG SCH (07:56)
[2019-06-08] MEDS: SENNA 8.6 MG TABLET NG SCH (07:56)
[2019-06-08] MEDS: DOCUSATE SODIUM 250 MG CAPSULE PO SCH (07:56)
[2019-06-08] MEDS: LANSOPRAZOLE 15 MG CAPSULE PEG SCH ×2 (09:55→20:25)
[2019-06-08] MEDS: APIXABAN 5 MG TABLET PEG SCH ×2 (09:56→20:26)
[2019-06-08] MEDS: carvediloL 12.5 MG TABLET NG SCH ×2 (09:56→20:25)
[2019-06-08] MEDS: lisinopriL 20 MG TABLET NG SCH (09:56)
[2019-06-08] MEDS: SACCHAROMYCES BOULARDII 250 MG CAPSULE PEG SCH (09:56)
[2019-06-08] MEDS: ASPIRIN CHEW 81 MG TABLET PEG SCH (09:56)
[2019-06-08] MEDS ORDERED: ZINC OXIDE 20% OINT 30 GM TUBE TOP PRN (12:39)
--- NOTE | 2019-06-08 14:12 | PROVIDER PROGRESS NOTE ---
Assessment/Plan - Problem List (1) Cerebrovascular accident (CVA) Qualifiers: CVA mechanism: thrombosis Laterality of affected vessel: right Assessment/Plan: Today he is excessively fatigued and would not awaken to participate with physical therapy. Yesterday he was very energetic and had 2 sessions with PT. Continue with the same plan for physical therapy and eventually SNF discharge. (2) Dysphagia Qualifiers: Dysphagia type: unspecified Qualified Code(s): R13.10 - Dysphagia, unspecified Assessment/Plan: He is tolerating tube feedings (3) Afib Assessment/Plan: On Coreg twice daily and Eliquis 5mg twice daily (4) Hypothyroidism Assessment/Plan: On Synthroid 112 mcg daily. This is an increase from his home dose of 100 mcg daily. (5) Chronic kidney disease, stage III (moderate) Assessment/Plan: Today the creatinine is 1.3. He has plateaued in this range. Continue with tube feedings (6) Chronic systolic heart failure Assessment/Plan: On Coreg 12.5 mg twice daily and lisinopril daily without any sx of volume overload. (7) Hypertension Qualifiers: Hypertension type: essential hypertension Qualified Code(s): I10 - Essential (primary) hypertension Assessment/Plan: He has adequate BP control on the Coreg and lisinopril (8) Aspiration pneumonia Assessment/Plan: Patient had 5 days of Unasyn, now completed. No cough. His white blood cell count normalized and he has been afebrile. We will stop the Florastor - Current Meds Current Meds: Current Medications Generic Name Dose Route Start Last Admin Trade Name Freq PRN Reason Stop Dose Admin Acetaminophen 640 mg 06/02/19 13:01 06/03/19 15:53 Tylenol NG 640 mg Q4HR PRN Administration Pain 1 to 4 Apixaban 5 mg 06/03/19 21:00 06/08/19 09:56 Eliquis PEG 5 mg BID LUIS Administration Aspirin 81 mg 06/03/19 09:00 06/08/19 09:56 [facility] Aspirin PEG 81 mg DAILY LUIS Administration Atorvastatin Calcium 80 mg 06/02/19 13:00 06/07/19 20:53 Lipitor NG 80 mg QPM LUIS Administration Carvedilol 12.5 mg 06/02/19 13:30 06/08/19 09:56 Coreg NG 12.5 mg BID LUIS Administration Docusate Sodium 250 - 500 mg 05/26/19 09:00 06/08/19 07:56 Colace 250mg Capsule PO Not Given DAILY LUIS Doxazosin Mesylate 4 mg 06/02/19 21:00 06/07/19 20:52 Cardura PEG 4 mg QPM LUIS Administration Hydralazine HCl 10 mg 05/29/19 11:01 06/04/19 12:28 Apresoline Inj IVP 10 mg QID PRN Administration Hypertensive Emergency Lansoprazole 30 mg 06/02/19 14:00 06/08/19 09:55 Prevacid PEG 30 mg BID LUIS Administration Levothyroxine Sodium 112 mcg 06/04/19 07:00 06/08/19 06:45 Synthroid PEG 112 mcg QDAC LUIS Administration Lisinopril 30 mg 06/02/19 13:30 06/08/19 09:56 Zestril NG 30 mg DAILY LUIS Administration Mineral Oil 1 applic 05/26/19 01:27 05/27/19 19:02 Cavilon TOP 1 applic PRN PRN Administration Skin Care Polyethylene Glycol 17 gm 06/02/19 13:30 06/08/19 07:56 Miralax NG Not Given DAILY [facility] Saccharomyces Boulardii 250 mg 06/04/19 17:00 06/08/19 09:56 Florastor PEG 250 mg BIDWM LUIS Administration Senna 8.6 - 17.2 mg 06/02/19 13:30 06/08/19 07:56 Senokot NG Not Given DAILY [facility] Sodium Chloride 10 ml 05/25/19 19:23 06/03/19 06:33 Normal Saline Flush 0.9% IVP 10 ml PRN PRN Administration NEEDED PER PROVIDER ORDERS Sodium Chloride 10 ml 05/26/19 01:00 06/08/19 09:57 Normal Saline Flush 0.9% IVP 10 ml 0100,0900,1700 LUIS Administration - Lab Result Fish Bone Diagrams: 06/08/19 05:40 06/08/19 05:40 Subjective - Subjective Patient Reports: Other (Very tired, napping) Objective Vital Signs: Vital Signs - 24 hr 06/07/19 06/07/19 06/08/19 15:34 19:17 00:17 Temperature 36.1 C L 36.5 C 37.1 C Heart Rate [ 78 Brachial] Heart Rate [ 77 81 Monitoring electrodes] Respiratory 20 16 18 Rate Blood Pressure 145/91 H 141/96 H 145/82 H [Right Brachial artery] O2 Saturation 97 97 98 06/08/19 06/08/19 06/08/19 04:56 08:31 12:42 Temperature 37.2 C 36.3 C L 36.5 C Heart Rate [ 74 86 73 Brachial] Heart Rate [ Monitoring electrodes] Respiratory 18 20 20 Rate Blood Pressure 140/75 H 125/58 L 117/76 [Right Brachial artery] O2 Saturation 100 100 98 Oxygen O2 Source Room air I&O (Last 24 Hrs): Intake and Output Totals x24h 06/06/19 06/07/19 06/08/19 23:59 23:59 23:59 Intake Total 1187 2915 754 Output Total 1450 2650 1025 Balance -263 265 -271 General: Alert HEENT: Mucous membr. moist/pink Neck: Supple Neuro: Other (L sided paralysis) Cardiovascular: Other (Irreg) Respiratory: No respiratory distress Abdomen: Soft, Other (PEG tube) Extremities: No edema - Results Results: Laboratory Results WBC 10.2 x10^3/uL (4.8-10.8) 06/08/19 05:40 RBC 4.70 10^6/uL (4.70-6.10) 06/08/19 05:40 Hgb 13.2 g/dL (14.0-18.0) L 06/08/19 05:40 Hct 42.8 % (42.0-52.0) 06/08/19 05:40 MCV 91.1 fL (80.0-94.0) 06/08/19 05:40 MCH 28.1 pg (27.0-31.0) 06/08/19 05:40 MCHC 30.8 g/dL (32.0-36.0) L 06/08/19 05:40 RDW 15.4 % (12.0-15.0) H 06/08/19 05:40 Plt Count 248 10^3/uL (130-450) 06/08/19 05:40 MPV 11.3 fL (7.4-11.4) 06/08/19 05:40 Neut # (Auto) 8.0 10^3/uL (1.5-6.6) H 06/08/19 05:40 Lymph # (Auto) 1.0 10^3/uL (1.5-3.5) L 06/08/19 05:40 [place] # (Auto) 0.7 10^3/uL (0.0-1.0) 06/08/19 05:40 Eos # (Auto) 0.2 10^3/uL (0.0-0.7) 06/08/19 05:40 Baso # (Auto) 0.0 10^3/uL (0.0-0.1) 06/08/19 05:40 Absolute Nucleated RBC 0.00 x10^3/uL 06/08/19 05:40 Nucleated RBC % 0.0 /100WBC 06/08/19 05:40 PT 15.8 secs (9.9-12.6) H 06/03/19 05:37 INR 1.4 (0.8-1.2) H 06/03/19 05:37 APTT 28.4 secs (24.9-33.3) 05/25/19 17:25 Anti-Xa Level 0.0 U/mL (-0.7) 05/25/19 17:25 Sodium 139 mmol/L (135-145) 06/08/19 05:40 Potassium 4.4 mmol/L (3.5-5.0) 06/08/19 05:40 Chloride 105 mmol/L (101-111) 06/08/19 05:40 Carbon Dioxide 25 mmol/L (21-32) 06/08/19 05:40 Anion Gap 9.0 (6-13) 06/08/19 05:40 BUN 27 mg/dL (6-20) H 06/08/19 05:40 Creatinine 1.3 mg/dL (0.6-1.2) H 06/08/19 05:40 Estimated GFR (MDRD) 55 (>89) L 06/08/19 05:40 Glucose 88 mg/dL (70-100) 06/08/19 05:40 POC Whole Bld Glucose 102 mg/dL (70 - 100) H 06/08/19 11:27 Glycated Hemoglobin 5.3 % (4.6-6.2) 05/26/19 05:03 Estim Average Glucose 105 (70-100) H 05/26/19 05:03 Calcium 8.4 mg/dL (8.5-10.3) L 06/08/19 05:40 Phosphorus 4.6 mg/dL (2.5-4.6) 06/08/19 05:40 Magnesium 2.6 mg/dL (1.7-2.8) 06/08/19 05:40 Total Bilirubin 0.7 mg/dL (0.2-1.0) 06/08/19 05:40 AST 52 IU/L (10-42) H 06/08/19 05:40 ALT 47 IU/L (10-60) 06/08/19 05:40 Alkaline Phosphatase 117 IU/L (42-121) 06/08/19 05:40 Troponin I High Sens 134.5 ng/L (2.3-19.7) H* 05/25/19 21:05 B-Natriuretic Peptide 471 pg/mL (5-100) H 05/30/19 04:40 Total Protein 6.2 g/dL (6.7-8.2) L 06/08/19 05:40 Albumin 2.6 g/dL (3.2-5.5) L 06/08/19 05:40 Globulin 3.6 g/dL (2.1-4.2) 06/08/19 05:40 Albumin/Globulin Ratio 0.7 (1.0-2.2) L 06/08/19 05:40 Prealbumin 11 mg/dL (18-45) L 06/08/19 05:40 Triglycerides 70 mg/dL (-149) 05/26/19 05:03 Cholesterol 191 mg/dL (-199) 05/26/19 05:03 LDL Cholesterol, Calc 139 mg/dL (-129) H 05/26/19 05:03 VLDL Cholesterol 14 mg/dL 05/26/19 05:03 HDL Cholesterol 38 mg/dL (60-) L 05/26/19 05:03 LDL/HDL Ratio 3.7 (<3.6) 05/26/19 05:03 Cholesterol/HDL Ratio 5.0 (<5.0) 05/26/19 05:03 Lipase 23 U/L (22-51) 05/25/19 17:25 TSH 9.51 uIU/mL (0.34-5.60) H 05/26/19 05:03 Free T4 0.68 ng/dL (0.58-1.64) 05/30/19 04:40 Urine Color DARK YELLOW 06/03/19 17:35 Urine Clarity CLEAR (CLEAR) 06/03/19 17:35 Urine pH 5.5 PH (5.0-7.5) 06/03/19 17:35 Ur Specific [place] 1.025 (1.002-1.030) 06/03/19 17:35 Urine Protein 30 mg/dL (NEGATIVE) H 06/03/19 17:35 Urine Glucose (UA) NEGATIVE mg/dL (NEGATIVE) 06/03/19 17:35 Urine Ketones NEGATIVE mg/dL (NEGATIVE) 06/03/19 17:35 Urine Occult Blood SMALL (NEGATIVE) H 06/03/19 17:35 Urine Nitrite NEGATIVE (NEGATIVE) 06/03/19 17:35 Urine Bilirubin NEGATIVE (NEGATIVE) 06/03/19 17:35 Urine Urobilinogen 0.2 (NORMAL) E.U./dL (NORMAL) 06/03/19 17:35 Ur Leukocyte Esterase NEGATIVE (NEGATIVE) 06/03/19 17:35 Urine RBC 0-5 /HPF (0-5) 06/03/19 17:35 Urine WBC 0-3 /HPF (0-3) 06/03/19 17:35 Ur Squamous Epith Cells NONE SEEN (<= Few) 06/03/19 17:35 Amorphous Sediment Rare /LPF 06/03/19 17:35 Urine Bacteria Rare /HPF (None Seen) 06/03/19 17:35 Urine Casts 3-5 Granular Casts /LPF 06/03/19 17:35 Urine Mucus Few Strands 06/03/19 17:35 Ur Microscopic Review INDICATED 05/25/19 19:15 Urine Culture Comments NOT INDICATED 06/03/19 17:35 Coronavirus (PCR) NEGATIVE 05/28/19 10:26
[2019-06-08] MEDS: ATORVASTATIN 40 MG TABLET NG SCH (20:25)
[2019-06-08] MEDS: DOXAZOSIN 4 MG TABLET PEG SCH (20:25)
[2019-06-08] MEDS: SODIUM CHLORIDE FLUSH 0.9% 10 ML SYRINGE IVP PRN (20:26)
[2019-06-09] MEDS: SODIUM CHLORIDE FLUSH 0.9% 10 ML SYRINGE IVP SCH ×3 (01:50→21:41)
[2019-06-09 05:34] LABS: BASOPHILS % (AUTO) 0.4 %; EOSINOPHILS # (AUTO) 0.2 10^3/uL (0.0-0.7); EOSINOPHILS % (AUTO) 2.3 %; HGB - HEMOGLOBIN 12.6 g/dL (14.0-18.0); LYMPHOCYTES # (AUTO) 1.1 10^3/uL (1.5-3.5); LYMPHOCYTES % (AUTO) 11.3 %; MEAN CORPUSCULAR HEMOGLOBIN 28.7 pg (27.0-31.0); MEAN CORPUSCULAR HGB CONC 32.1 g/dL (32.0-36.0); MEAN CORPUSCULAR VOLUME 89.3 fL (80.0-94.0); MEAN PLATELET VOLUME 11.4 fL (7.4-11.4); MONOCYTES # (AUTO) 0.6 10^3/uL (0.0-1.0); MONOCYTES % (AUTO) 6.8 %; NEUTROPHILS # (AUTO) 7.3 10^3/uL (1.5-6.6); NEUTROPHILS % (AUTO) 77.6 %; PLT - PLATELET COUNT 265 10^3/uL (130-450); RED BLOOD COUNT 4.39 10^6/uL (4.70-6.10); RED CELL DISTRIBUTION WIDTH 15.1 % (12.0-15.0); WHITE BLOOD COUNT 9.4 x10^3/uL (4.8-10.8)
[2019-06-09 05:43] LABS: CALCIUM 8.2 mg/dL (8.5-10.3); CREATININE 1.2 mg/dL (0.6-1.2)
[2019-06-09] MEDS: LEVOTHYROXINE 112 MCG TABLET PEG SCH (06:01)
[2019-06-09] MEDS: DOCUSATE SODIUM 250 MG CAPSULE PO SCH (09:32)
[2019-06-09] MEDS: LANSOPRAZOLE 15 MG CAPSULE PEG SCH ×2 (10:15→21:40)
[2019-06-09] MEDS: APIXABAN 5 MG TABLET PEG SCH ×2 (10:15→21:40)
[2019-06-09] MEDS: SENNA 8.6 MG TABLET NG SCH (10:15)
[2019-06-09] MEDS: carvediloL 12.5 MG TABLET NG SCH ×2 (10:16→21:41)
[2019-06-09] MEDS: lisinopriL 20 MG TABLET NG SCH (10:16)
[2019-06-09] MEDS: ASPIRIN CHEW 81 MG TABLET PEG SCH (10:16)
[2019-06-09] MEDS: polyethylene glycoL 3350 17 GM PACKET NG SCH (10:35)
--- NOTE | 2019-06-09 16:42 | PROVIDER PROGRESS NOTE ---
Assessment/Plan - Problem List (1) Cerebrovascular accident (CVA) Qualifiers: CVA mechanism: thrombosis Laterality of affected vessel: right Assessment/Plan: He had a significant stroke with left-sided weakness. He is participating with PT and OT. He will need long-term care. Home and community services is to evaluate him by phone on Sunday. Then facility such as [facility] will consider taking him. Therefore the earliest discharge would be about Sunday or . (2) Dysphagia Qualifiers: Dysphagia type: unspecified Qualified Code(s): R13.10 - Dysphagia, unspecified Assessment/Plan: He is getting a PEG tube diet and tolerating this. (3) Afib Assessment/Plan: Heart rate meds and anticoagulation meds are ordered. (4) Hypothyroidism Assessment/Plan: He is on his home dose of thyroid replacement (5) Chronic kidney disease, stage III (moderate) Assessment/Plan: Stable (6) Chronic systolic heart failure Assessment/Plan: Stable, no signs of volume overload, he is able to sleep supine and breathes r.a. (7) Hypertension Qualifiers: Hypertension type: essential hypertension Qualified Code(s): I10 - Essential (primary) hypertension Assessment/Plan: BP is controlled on present combination of medications (8) Aspiration pneumonia Assessment/Plan: Resolved, he finished antibiotics. - Current Meds Current Meds: Current Medications Generic Name Dose Route Start Last Admin Trade Name Freq PRN Reason Stop Dose Admin Acetaminophen 640 mg 06/02/19 13:01 06/03/19 15:53 Tylenol NG 640 mg Q4HR PRN Administration Pain 1 to 4 Apixaban 5 mg 06/03/19 21:00 06/09/19 10:15 Eliquis PEG 5 mg BID LUIS Administration Aspirin 81 mg 06/03/19 09:00 06/09/19 10:16 [facility] [place] Aspirin PEG 81 mg DAILY ULIS Administration Atorvastatin Calcium 80 mg 06/02/19 13:00 06/08/19 20:25 Lipitor NG 80 mg QPM LUIS Administration Carvedilol 12.5 mg 06/02/19 13:30 06/09/19 10:16 Coreg NG 12.5 mg BID LUIS Administration Docusate Sodium 250 - 500 mg 05/26/19 09:00 06/09/19 09:32 Colace 250mg Capsule PO Not Given DAILY LUIS Doxazosin Mesylate 4 mg 06/02/19 21:00 06/08/19 20:25 Cardura PEG 4 mg QPM LUIS Administration Lansoprazole 30 mg 06/02/19 14:00 06/09/19 10:15 Prevacid PEG 30 mg BID LUIS Administration Levothyroxine Sodium 112 mcg 06/04/19 07:00 06/09/19 06:01 Synthroid PEG 112 mcg QDAC LUIS Administration Lisinopril 30 mg 06/02/19 13:30 06/09/19 10:16 Zestril NG 30 mg DAILY LUIS Administration Mineral Oil 1 applic 05/26/19 01:27 05/27/19 19:02 Cavilon TOP 1 applic PRN PRN Administration Skin Care Multi-Ingredient Ointment 1 applic 06/08/19 12:39 06/08/19 22:23 Zinc Oxide TOP 1 applic PRN PRN Administration Skin Care Polyethylene Glycol 17 gm 06/02/19 13:30 06/09/19 10:35 Miralax NG Not Given DAILY [facility] Senna 8.6 - 17.2 mg 06/02/19 13:30 06/09/19 10:15 Senokot NG 8.6 mg DAILY LUIS Administration Sodium Chloride 10 ml 05/25/19 19:23 06/08/19 20:26 Normal Saline Flush 0.9% IVP 10 ml PRN PRN Administration NEEDED PER PROVIDER ORDERS Sodium Chloride 10 ml 05/26/19 01:00 06/09/19 14:46 Normal Saline Flush 0.9% IVP Not Given 0100,0900,1700 LUIS - Lab Result Fish Bone Diagrams: 06/09/19 05:16 06/09/19 05:16 Subjective - Subjective Patient Reports: Other (No new complaints, communication is difficult.) Objective Vital Signs: Vital Signs - 24 hr 06/08/19 06/08/19 06/09/19 18:35 20:16 00:39 Temperature 37.2 C 36.6 C Heart Rate [ 83 Brachial] Heart Rate [ 88 92 Monitoring electrodes] Respiratory 18 18 Rate Blood Pressure 133/83 H 142/86 H 141/91 H [Right Brachial artery] O2 Saturation 98 96 06/09/19 06/09/19 06/09/19 04:47 07:45 11:52 Temperature 36.3 C L 37.3 C 37.1 C Heart Rate [ 79 82 64 Brachial] Heart Rate [ Monitoring electrodes] Respiratory 18 18 18 Rate Blood Pressure 137/73 H 136/81 H 146/98 H [Right Brachial artery] O2 Saturation 98 100 98 06/09/19 16:14 Temperature 36.5 C Heart Rate [ 105 H Brachial] Heart Rate [ Monitoring electrodes] Respiratory 17 Rate Blood Pressure 150/85 H [Right Brachial artery] O2 Saturation 98 Oxygen O2 Source Room air I&O (Last 24 Hrs): Intake and Output Totals x24h 06/07/19 06/08/19 06/09/19 23:59 23:59 23:59 Intake Total 2915 2445 1592 Output Total 2650 1925 1300 Balance 265 520 292 General: Alert HEENT: Mucous membr. moist/pink Neck: Supple Neuro: Other (L sided weakness) Cardiovascular: No murmurs Respiratory: No respiratory distress Abdomen: Soft Extremities: No edema - Results Results: Laboratory Results WBC 9.4 x10^3/uL (4.8-10.8) 06/09/19 05:16 RBC 4.39 10^6/uL (4.70-6.10) L 06/09/19 05:16 Hgb 12.6 g/dL (14.0-18.0) L 06/09/19 05:16 Hct 39.2 % (42.0-52.0) L 06/09/19 05:16 MCV 89.3 fL (80.0-94.0) 06/09/19 05:16 MCH 28.7 pg (27.0-31.0) 06/09/19 05:16 MCHC 32.1 g/dL (32.0-36.0) 06/09/19 05:16 RDW 15.1 % (12.0-15.0) H 06/09/19 05:16 Plt Count 265 10^3/uL (130-450) 06/09/19 05:16 MPV 11.4 fL (7.4-11.4) 06/09/19 05:16 Neut # (Auto) 7.3 10^3/uL (1.5-6.6) H 06/09/19 05:16 Lymph # (Auto) 1.1 10^3/uL (1.5-3.5) L 06/09/19 05:16 [place] # (Auto) 0.6 10^3/uL (0.0-1.0) 06/09/19 05:16 Eos # (Auto) 0.2 10^3/uL (0.0-0.7) 06/09/19 05:16 Baso # (Auto) 0.0 10^3/uL (0.0-0.1) 06/09/19 05:16 Absolute Nucleated RBC 0.00 x10^3/uL 06/09/19 05:16 Nucleated RBC % 0.0 /100WBC 06/09/19 05:16 PT 15.8 secs (9.9-12.6) H 06/03/19 05:37 INR 1.4 (0.8-1.2) H 06/03/19 05:37 APTT 28.4 secs (24.9-33.3) 05/25/19 17:25 Anti-Xa Level 0.0 U/mL (-0.7) 05/25/19 17:25 Sodium 138 mmol/L (135-145) 06/09/19 05:16 Potassium 4.3 mmol/L (3.5-5.0) 06/09/19 05:16 Chloride 106 mmol/L (101-111) 06/09/19 05:16 Carbon Dioxide 23 mmol/L (21-32) 06/09/19 05:16 Anion Gap 9.0 (6-13) 06/09/19 05:16 BUN 29 mg/dL (6-20) H 06/09/19 05:16 Creatinine 1.2 mg/dL (0.6-1.2) 06/09/19 05:16 Estimated GFR (MDRD) 60 (>89) L 06/09/19 05:16 Glucose 122 mg/dL (70-100) H 06/09/19 05:16 POC Whole Bld Glucose 91 mg/dL (70 - 100) 06/09/19 11:35 Glycated Hemoglobin 5.3 % (4.6-6.2) 05/26/19 05:03 Estim Average Glucose 105 (70-100) H 05/26/19 05:03 Calcium 8.2 mg/dL (8.5-10.3) L 06/09/19 05:16 Phosphorus 4.6 mg/dL (2.5-4.6) 06/08/19 05:40 Magnesium 2.6 mg/dL (1.7-2.8) 06/08/19 05:40 Total Bilirubin 0.7 mg/dL (0.2-1.0) 06/08/19 05:40 AST 52 IU/L (10-42) H 06/08/19 05:40 ALT 47 IU/L (10-60) 06/08/19 05:40 Alkaline Phosphatase 117 IU/L (42-121) 06/08/19 05:40 Troponin I High Sens 134.5 ng/L (2.3-19.7) H* 05/25/19 21:05 B-Natriuretic Peptide 471 pg/mL (5-100) H 05/30/19 04:40 Total Protein 6.2 g/dL (6.7-8.2) L 06/08/19 05:40 Albumin 2.6 g/dL (3.2-5.5) L 06/08/19 05:40 Globulin 3.6 g/dL (2.1-4.2) 06/08/19 05:40 Albumin/Globulin Ratio 0.7 (1.0-2.2) L 06/08/19 05:40 Prealbumin 11 mg/dL (18-45) L 06/08/19 05:40 Triglycerides 70 mg/dL (-149) 05/26/19 05:03 Cholesterol 191 mg/dL (-199) 05/26/19 05:03 LDL Cholesterol, Calc 139 mg/dL (-129) H 05/26/19 05:03 VLDL Cholesterol 14 mg/dL 05/26/19 05:03 HDL Cholesterol 38 mg/dL (60-) L 05/26/19 05:03 LDL/HDL Ratio 3.7 (<3.6) 05/26/19 05:03 Cholesterol/HDL Ratio 5.0 (<5.0) 05/26/19 05:03 Lipase 23 U/L (22-51) 05/25/19 17:25 TSH 9.51 uIU/mL (0.34-5.60) H 05/26/19 05:03 Free T4 0.68 ng/dL (0.58-1.64) 05/30/19 04:40 Urine Color DARK YELLOW 06/03/19 17:35 Urine Clarity CLEAR (CLEAR) 06/03/19 17:35 Urine pH 5.5 PH (5.0-7.5) 06/03/19 17:35 Ur Specific [place] 1.025 (1.002-1.030) 06/03/19 17:35 Urine Protein 30 mg/dL (NEGATIVE) H 06/03/19 17:35 Urine Glucose (UA) NEGATIVE mg/dL (NEGATIVE) 06/03/19 17:35 Urine Ketones NEGATIVE mg/dL (NEGATIVE) 06/03/19 17:35 Urine Occult Blood SMALL (NEGATIVE) H 06/03/19 17:35 Urine Nitrite NEGATIVE (NEGATIVE) 06/03/19 17:35 Urine Bilirubin NEGATIVE (NEGATIVE) 06/03/19 17:35 Urine Urobilinogen 0.2 (NORMAL) E.U./dL (NORMAL) 06/03/19 17:35 Ur Leukocyte Esterase NEGATIVE (NEGATIVE) 06/03/19 17:35 Urine RBC 0-5 /HPF (0-5) 06/03/19 17:35 Urine WBC 0-3 /HPF (0-3) 06/03/19 17:35 Ur Squamous Epith Cells NONE SEEN (<= Few) 06/03/19 17:35 Amorphous Sediment Rare /LPF 06/03/19 17:35 Urine Bacteria Rare /HPF (None Seen) 06/03/19 17:35 Urine Casts 3-5 Granular Casts /LPF 06/03/19 17:35 Urine Mucus Few Strands 06/03/19 17:35 Ur Microscopic Review INDICATED 05/25/19 19:15 Urine Culture Comments NOT INDICATED 06/03/19 17:35 Coronavirus (PCR) NEGATIVE 05/28/19 10:26
[2019-06-09] MEDS: ATORVASTATIN 40 MG TABLET NG SCH (21:40)
[2019-06-09] MEDS: DOXAZOSIN 4 MG TABLET PEG SCH (21:41)
[2019-06-10] MEDS: SODIUM CHLORIDE FLUSH 0.9% 10 ML SYRINGE IVP SCH ×3 (01:19→20:47)
[2019-06-10] MEDS: LEVOTHYROXINE 112 MCG TABLET PEG SCH (06:28)
[2019-06-10 07:04] LABS: BASOPHILS % (AUTO) 0.4 %; EOSINOPHILS # (AUTO) 0.2 10^3/uL (0.0-0.7); EOSINOPHILS % (AUTO) 2.2 %; HGB - HEMOGLOBIN 12.7 g/dL (14.0-18.0); LYMPHOCYTES # (AUTO) 0.9 10^3/uL (1.5-3.5); LYMPHOCYTES % (AUTO) 7.9 %; MEAN CORPUSCULAR HEMOGLOBIN 28.6 pg (27.0-31.0); MEAN CORPUSCULAR HGB CONC 31.8 g/dL (32.0-36.0); MEAN CORPUSCULAR VOLUME 90.1 fL (80.0-94.0); MEAN PLATELET VOLUME 10.9 fL (7.4-11.4); MONOCYTES # (AUTO) 0.7 10^3/uL (0.0-1.0); MONOCYTES % (AUTO) 6.6 %; NEUTROPHILS # (AUTO) 9.1 10^3/uL (1.5-6.6); NEUTROPHILS % (AUTO) 81.9 %; PLT - PLATELET COUNT 297 10^3/uL (130-450); RED BLOOD COUNT 4.44 10^6/uL (4.70-6.10); WHITE BLOOD COUNT 11.2 x10^3/uL (4.8-10.8)
[2019-06-10 07:12] LABS: CALCIUM 8.5 mg/dL (8.5-10.3); CREATININE 1.3 mg/dL (0.6-1.2); MAGNESIUM 2.5 mg/dL (1.7-2.8); PHOSPHORUS 4.3 mg/dL (2.5-4.6)
[2019-06-10] MEDS: LANSOPRAZOLE 15 MG CAPSULE PEG SCH ×2 (09:56→20:48)
[2019-06-10] MEDS: SENNA 8.6 MG TABLET NG SCH (09:56)
[2019-06-10] MEDS: lisinopriL 20 MG TABLET NG SCH (09:56)
[2019-06-10] MEDS: ASPIRIN CHEW 81 MG TABLET PEG SCH (09:56)
[2019-06-10] MEDS: carvediloL 12.5 MG TABLET NG SCH ×2 (09:56→20:48)
[2019-06-10] MEDS: APIXABAN 5 MG TABLET PEG SCH ×2 (09:56→20:48)
[2019-06-10] MEDS: polyethylene glycoL 3350 17 GM PACKET NG SCH (09:57)
[2019-06-10] MEDS: DOCUSATE SODIUM 250 MG CAPSULE PO SCH (09:57)
--- NOTE | 2019-06-10 10:33 | PROVIDER PROGRESS NOTE ---
Assessment/Plan - Problem List (1) Cerebrovascular accident (CVA) Qualifiers: CVA mechanism: thrombosis Laterality of affected vessel: right Assessment/Plan: pt is comfortable sleeping at the bed. pt had a significant stroke with left- sided weakness. This was pt's second stroke, likely from pt's medical non- compliance to his Coumadin for his Coumadin. continue Aspirin, Eliquis for his Afib, and statin continue PT/OT continue social work assistant consult, social work assistant report pt is accepted by [facility]. Great job from social work assistant. [facility] ask pt to have continuing PEG feeding, and negative Covid 19 test, will order test for pt. pt was negative Covid 19 before. (2) Dysphagia pt tolerate PEG tube feeding. (3) Afib Assessment/Plan: stable, continue Heart rate meds and anticoagulation meds (4) Hypothyroidism Assessment/Plan: stable, TSH was slight high, His thyroid dosage is slight higher than his home meds. (5) Chronic kidney disease, stage III (moderate) Assessment/Plan: Stable (6) Chronic systolic heart failure Assessment/Plan: Stable, EF was 25% in new ECHO test. no signs of volume overload, he is able to sleep supine and breathes r.a. (7) Hypertension BP is stable and controlled on present combination of medications (8) Aspiration pneumonia Assessment/Plan: Resolved, he finished antibiotics. - Current Meds Current Meds: Current Medications Generic Name Dose Route Start Last Admin Trade Name Freq PRN Reason Stop Dose Admin Acetaminophen 640 mg 06/02/19 13:01 06/03/19 15:53 Tylenol NG 640 mg Q4HR PRN Administration Pain 1 to 4 Apixaban 5 mg 06/03/19 21:00 06/10/19 09:56 Eliquis PEG 5 mg BID LUIS Administration Aspirin 81 mg 06/03/19 09:00 06/10/19 09:56 St Ravi Aspirin PEG 81 mg DAILY LUIS Administration Atorvastatin Calcium 80 mg 06/02/19 13:00 06/09/19 21:40 Lipitor NG 80 mg QPM LUIS Administration Carvedilol 12.5 mg 06/02/19 13:30 06/10/19 09:56 Coreg NG 12.5 mg BID LUIS Administration Docusate Sodium 250 - 500 mg 05/26/19 09:00 06/10/19 09:57 Colace 250mg Capsule PO Not Given DAILY LUIS Doxazosin Mesylate 4 mg 06/02/19 21:00 06/09/19 21:41 Cardura PEG 4 mg QPM LUIS Administration Lansoprazole 30 mg 06/02/19 14:00 06/10/19 09:56 Prevacid PEG 30 mg BID LUIS Administration Levothyroxine Sodium 112 mcg 06/04/19 07:00 06/10/19 06:28 Synthroid PEG 112 mcg QDAC LUIS Administration Lisinopril 30 mg 06/02/19 13:30 06/10/19 09:56 Zestril NG 30 mg DAILY LUIS Administration Mineral Oil 1 applic 05/26/19 01:27 05/27/19 19:02 Cavilon TOP 1 applic PRN PRN Administration Skin Care Multi-Ingredient Ointment 1 applic 06/08/19 12:39 06/08/19 22:23 Zinc Oxide TOP 1 applic PRN PRN Administration Skin Care Polyethylene Glycol 17 gm 06/02/19 13:30 06/10/19 09:57 Miralax NG Not Given DAILY LUIS Senna 8.6 - 17.2 mg 06/02/19 13:30 06/10/19 09:56 Senokot NG 8.6 mg DAILY LUIS Administration Sodium Chloride 10 ml 05/25/19 19:23 06/08/19 20:26 Normal Saline Flush 0.9% IVP 10 ml PRN PRN Administration NEEDED PER PROVIDER ORDERS Sodium Chloride 10 ml 05/26/19 01:00 06/10/19 01:19 Normal Saline Flush 0.9% IVP 10 ml 0100,0900,1700 LUIS Administration - Lab Result Fish Bone Diagrams: 06/10/19 06:52 06/10/19 06:52 - Additional Planning My Orders: My Active Orders 06/11/19 05:00 BMP - BASIC METABOLIC PANEL [CHEM] DAILYLAB CBC - COMP BLD CT W/AUTO DIFF [HEME] DAILYLAB 06/12/19 05:00 BMP - BASIC METABOLIC PANEL [CHEM] DAILYLAB CBC - COMP BLD CT W/AUTO DIFF [HEME] DAILYLAB 06/13/19 05:00 BMP - BASIC METABOLIC PANEL [CHEM] DAILYLAB CBC - COMP BLD CT W/AUTO DIFF [HEME] DAILYLAB 06/14/19 05:00 BMP - BASIC METABOLIC PANEL [CHEM] DAILYLAB CBC - COMP BLD CT W/AUTO DIFF [HEME] DAILYLAB 06/15/19 05:00 BMP - BASIC METABOLIC PANEL [CHEM] DAILYLAB CBC - COMP BLD CT W/AUTO DIFF [HEME] DAILYLAB Subjective - Subjective Nursing Reports: Other (no issue reported today) Objective Vital Signs: Vital Signs - 24 hr 06/09/19 06/09/19 06/09/19 11:52 16:14 21:00 Temperature 37.1 C 36.5 C 36.5 C Heart Rate [ 64 105 H Brachial] Heart Rate [ 110 H Monitoring electrodes] Respiratory 18 17 18 Rate Blood Pressure 146/98 H 150/85 H 135/87 H [Right Brachial artery] O2 Saturation 98 98 98 06/10/19 06/10/19 06/10/19 00:37 04:49 08:39 Temperature 36.6 C 36.3 C L 97.5 C H Heart Rate [ 80 53 L 89 Brachial] Heart Rate [ Monitoring electrodes] Respiratory 16 16 18 Rate Blood Pressure 134/89 H 149/92 H 126/89 H [Right Brachial artery] O2 Saturation 95 98 97 Oxygen O2 Source Room air I&O (Last 24 Hrs): Intake and Output Totals x24h 06/08/19 06/09/19 06/10/19 23:59 23:59 23:59 Intake Total 2445 3132 340 Output Total 1925 2000 625 Balance 520 1132 -285 General: Alert, No acute distress HEENT: Atraumatic Neck: Supple Lymphatic: no adenopathy Neuro: Alert, Focal Deficits, Speech Slurred, Oriented Times 3 Cardiovascular: Normal S1, Normal S2 Respiratory: Chest non-tender, No respiratory distress Abdomen: Normal bowel sounds, Soft Extremities: Normal pulses - Results Results: Laboratory Results WBC 11.2 x10^3/uL (4.8-10.8) H 06/10/19 06:52 RBC 4.44 10^6/uL (4.70-6.10) L 06/10/19 06:52 Hgb 12.7 g/dL (14.0-18.0) L 06/10/19 06:52 Hct 40.0 % (42.0-52.0) L 06/10/19 06:52 MCV 90.1 fL (80.0-94.0) 06/10/19 06:52 MCH 28.6 pg (27.0-31.0) 06/10/19 06:52 MCHC 31.8 g/dL (32.0-36.0) L 06/10/19 06:52 RDW 15.0 % (12.0-15.0) 06/10/19 06:52 Plt Count 297 10^3/uL (130-450) 06/10/19 06:52 MPV 10.9 fL (7.4-11.4) 06/10/19 06:52 Neut # (Auto) 9.1 10^3/uL (1.5-6.6) H 06/10/19 06:52 Lymph # (Auto) 0.9 10^3/uL (1.5-3.5) L 06/10/19 06:52 [place] # (Auto) 0.7 10^3/uL (0.0-1.0) 06/10/19 06:52 Eos # (Auto) 0.2 10^3/uL (0.0-0.7) 06/10/19 06:52 Baso # (Auto) 0.0 10^3/uL (0.0-0.1) 06/10/19 06:52 Absolute Nucleated RBC 0.00 x10^3/uL 06/10/19 06:52 Nucleated RBC % 0.0 /100WBC 06/10/19 06:52 PT 15.8 secs (9.9-12.6) H 06/03/19 05:37 INR 1.4 (0.8-1.2) H 06/03/19 05:37 APTT 28.4 secs (24.9-33.3) 05/25/19 17:25 Anti-Xa Level 0.0 U/mL (-0.7) 05/25/19 17:25 Sodium 139 mmol/L (135-145) 06/10/19 06:52 Potassium 4.8 mmol/L (3.5-5.0) 06/10/19 06:52 Chloride 104 mmol/L (101-111) 06/10/19 06:52 Carbon Dioxide 27 mmol/L (21-32) 06/10/19 06:52 Anion Gap 8.0 (6-13) 06/10/19 06:52 BUN 31 mg/dL (6-20) H 06/10/19 06:52 Creatinine 1.3 mg/dL (0.6-1.2) H 06/10/19 06:52 Estimated GFR (MDRD) 55 (>89) L 06/10/19 06:52 Glucose 111 mg/dL (70-100) H 06/10/19 06:52 POC Whole Bld Glucose 72 mg/dL (70 - 100) 06/10/19 05:42 Glycated Hemoglobin 5.3 % (4.6-6.2) 05/26/19 05:03 Estim Average Glucose 105 (70-100) H 05/26/19 05:03 Calcium 8.5 mg/dL (8.5-10.3) 06/10/19 06:52 Phosphorus 4.3 mg/dL (2.5-4.6) 06/10/19 06:52 Magnesium 2.5 mg/dL (1.7-2.8) 06/10/19 06:52 Total Bilirubin 0.7 mg/dL (0.2-1.0) 06/08/19 05:40 AST 52 IU/L (10-42) H 06/08/19 05:40 ALT 47 IU/L (10-60) 06/08/19 05:40 Alkaline Phosphatase 117 IU/L (42-121) 06/08/19 05:40 Troponin I High Sens 134.5 ng/L (2.3-19.7) H* 05/25/19 21:05 B-Natriuretic Peptide 471 pg/mL (5-100) H 05/30/19 04:40 Total Protein 6.2 g/dL (6.7-8.2) L 06/08/19 05:40 Albumin 2.6 g/dL (3.2-5.5) L 06/08/19 05:40 Globulin 3.6 g/dL (2.1-4.2) 06/08/19 05:40 Albumin/Globulin Ratio 0.7 (1.0-2.2) L 06/08/19 05:40 Prealbumin 11 mg/dL (18-45) L 06/08/19 05:40 Triglycerides 70 mg/dL (-149) 05/26/19 05:03 Cholesterol 191 mg/dL (-199) 05/26/19 05:03 LDL Cholesterol, Calc 139 mg/dL (-129) H 05/26/19 05:03 VLDL Cholesterol 14 mg/dL 05/26/19 05:03 HDL Cholesterol 38 mg/dL (60-) L 05/26/19 05:03 LDL/HDL Ratio 3.7 (<3.6) 05/26/19 05:03 Cholesterol/HDL Ratio 5.0 (<5.0) 05/26/19 05:03 Lipase 23 U/L (22-51) 05/25/19 17:25 TSH 9.51 uIU/mL (0.34-5.60) H 05/26/19 05:03 Free T4 0.68 ng/dL (0.58-1.64) 05/30/19 04:40 Urine Color DARK YELLOW 06/03/19 17:35 Urine Clarity CLEAR (CLEAR) 06/03/19 17:35 Urine pH 5.5 PH (5.0-7.5) 06/03/19 17:35 Ur Specific [place] 1.025 (1.002-1.030) 06/03/19 17:35 Urine Protein 30 mg/dL (NEGATIVE) H 06/03/19 17:35 Urine Glucose (UA) NEGATIVE mg/dL (NEGATIVE) 06/03/19 17:35 Urine Ketones NEGATIVE mg/dL (NEGATIVE) 06/03/19 17:35 Urine Occult Blood SMALL (NEGATIVE) H 06/03/19 17:35 Urine Nitrite NEGATIVE (NEGATIVE) 06/03/19 17:35 Urine Bilirubin NEGATIVE (NEGATIVE) 06/03/19 17:35 Urine Urobilinogen 0.2 (NORMAL) E.U./dL (NORMAL) 06/03/19 17:35 Ur Leukocyte Esterase NEGATIVE (NEGATIVE) 06/03/19 17:35 Urine RBC 0-5 /HPF (0-5) 06/03/19 17:35 Urine WBC 0-3 /HPF (0-3) 06/03/19 17:35 Ur Squamous Epith Cells NONE SEEN (<= Few) 06/03/19 17:35 Amorphous Sediment Rare /LPF 06/03/19 17:35 Urine Bacteria Rare /HPF (None Seen) 06/03/19 17:35 Urine Casts 3-5 Granular Casts /LPF 06/03/19 17:35 Urine Mucus Few Strands 06/03/19 17:35 Ur Microscopic Review INDICATED 05/25/19 19:15 Urine Culture Comments NOT INDICATED 06/03/19 17:35 Coronavirus (PCR) NEGATIVE 05/28/19 10:26 ABX Reporting Has patient been on IV antibiotics over the past 48 hours?: No Current Medications - Current Medications Current Medications: Active Medications Acetaminophen (Tylenol) 640 mg NG Q4HR PRN PRN Reason: Pain 1 to 4 Last Admin: 06/03/19 15:53 Dose: 640 mg Apixaban (Eliquis) 5 mg PEG BID [facility] Last Admin: 06/10/19 09:56 Dose: 5 mg Aspirin ([facility] Ravi Aspirin) 81 mg PEG DAILY [facility] Last Admin: 06/10/19 09:56 Dose: 81 mg Atorvastatin Calcium (Lipitor) 80 mg NG QPM [facility] Last Admin: 06/09/19 21:40 Dose: 80 mg Carvedilol (Coreg) 12.5 mg NG BID [facility] Last Admin: 06/10/19 09:56 Dose: 12.5 mg Docusate Sodium (Colace 250mg Capsule) 250 - 500 mg PO DAILY [facility] Last Admin: 06/10/19 09:57 Dose: Not Given Doxazosin Mesylate (Cardura) 4 mg PEG QPM [facility] Last Admin: 06/09/19 21:41 Dose: 4 mg Lansoprazole (Prevacid) 30 mg PEG BID [facility] Last Admin: 06/10/19 09:56 Dose: 30 mg Levothyroxine Sodium (Synthroid) 112 mcg PEG QDAC [facility] Last Admin: 06/10/19 06:28 Dose: 112 mcg Lisinopril (Zestril) 30 mg NG DAILY [facility] Last Admin: 06/10/19 09:56 Dose: 30 mg Mineral Oil (Cavilon) 1 applic TOP PRN PRN PRN Reason: Skin Care Last Admin: 05/27/19 19:02 Dose: 1 applic Multi-Ingredient Ointment (Zinc Oxide) 1 applic TOP PRN PRN PRN Reason: Skin Care Last Admin: 06/08/19 22:23 Dose: 1 applic Polyethylene Glycol (Miralax) 17 gm NG DAILY [facility] Last Admin: 06/10/19 09:57 Dose: Not Given Senna (Senokot) 8.6 - 17.2 mg NG DAILY [facility] Last Admin: 06/10/19 09:56 Dose: 8.6 mg Sodium Chloride (Normal Saline Flush 0.9%) 10 ml IVP PRN PRN PRN Reason: NEEDED PER PROVIDER ORDERS Last Admin: 06/08/19 20:26 Dose: 10 ml Sodium Chloride (Normal Saline Flush 0.9%) 10 ml IVP 0100,0900,1700 LUIS Last Admin: 06/10/19 01:19 Dose: 10 ml Amlodipine Besylate 10 mg PO DAILY 01/18/15 lisinopriL [Lisinopril] 20 mg PO DAILY 01/18/15 Carvedilol 12.5 mg PO DAILY 05/25/19 Furosemide 40 mg PO DAILY 05/25/19 Levothyroxine [Synthroid] 100 mcg PO DAILY 05/25/19 Warfarin Sodium 5 mg PO DAILY 05/25/19 amLODIPine [Norvasc] 10 mg PO DAILY 05/25/19
[2019-06-10] MEDS: DOXAZOSIN 4 MG TABLET PEG SCH (20:48)
[2019-06-10] MEDS: ATORVASTATIN 40 MG TABLET NG SCH (20:48)
[2019-06-11] MEDS: SODIUM CHLORIDE FLUSH 0.9% 10 ML SYRINGE IVP SCH ×2 (00:54→12:55)
[2019-06-11 05:45] LABS: BASOPHILS % (AUTO) 0.5 %; EOSINOPHILS # (AUTO) 0.2 10^3/uL (0.0-0.7); HGB - HEMOGLOBIN 12.5 g/dL (14.0-18.0); LYMPHOCYTES # (AUTO) 0.8 10^3/uL (1.5-3.5); LYMPHOCYTES % (AUTO) 9.3 %; MEAN CORPUSCULAR HGB CONC 30.9 g/dL (32.0-36.0); MEAN CORPUSCULAR VOLUME 90.4 fL (80.0-94.0); MEAN PLATELET VOLUME 10.8 fL (7.4-11.4); MONOCYTES # (AUTO) 0.7 10^3/uL (0.0-1.0); MONOCYTES % (AUTO) 8.2 %; NEUTROPHILS # (AUTO) 6.9 10^3/uL (1.5-6.6); PLT - PLATELET COUNT 279 10^3/uL (130-450); RED BLOOD COUNT 4.47 10^6/uL (4.70-6.10); RED CELL DISTRIBUTION WIDTH 15.2 % (12.0-15.0); WHITE BLOOD COUNT 8.7 x10^3/uL (4.8-10.8)
[2019-06-11 06:00] LABS: ALBUMIN 2.7 g/dL (3.2-5.5); ALBUMIN/GLOBULIN RATIO 0.8 (1.0-2.2); BILIRUBIN,TOTAL 0.6 mg/dL (0.2-1.0); CALCIUM 8.5 mg/dL (8.5-10.3); CREATININE 1.3 mg/dL (0.6-1.2); MAGNESIUM 2.2 mg/dL (1.7-2.8); PHOSPHORUS 4.3 mg/dL (2.5-4.6); TOTAL PROTEIN 6.2 g/dL (6.7-8.2)
[2019-06-11] MEDS: LEVOTHYROXINE 112 MCG TABLET PEG SCH (06:01)
[2019-06-11] MEDS: carvediloL 12.5 MG TABLET NG SCH (08:42)
[2019-06-11] MEDS: SENNA 8.6 MG TABLET NG SCH (08:42)
[2019-06-11] MEDS: ASPIRIN CHEW 81 MG TABLET PEG SCH (08:42)
[2019-06-11] MEDS: LANSOPRAZOLE 15 MG CAPSULE PEG SCH (08:42)
[2019-06-11] MEDS: DOCUSATE SODIUM 250 MG CAPSULE PO SCH (08:43)
[2019-06-11] MEDS: polyethylene glycoL 3350 17 GM PACKET NG SCH (08:43)
[2019-06-11] MEDS: APIXABAN 5 MG TABLET PEG SCH (08:43)
[2019-06-11] MEDS: lisinopriL 20 MG TABLET NG SCH (08:43)
--- NOTE | 2019-06-11 11:33 | Discharge Plan ---
"Discharge Plan for SNF / [facility] - Discharge Plan And Transition Orders Problem Reviewed?: Yes Disposition: 03 SNF DC/Xfer Condition: Poor Allergies and Adverse Reactions: Allergies Allergy/AdvReac Type Severity Reaction Status Date / Time erythromycin base Allergy Unknown Verified 05/25/19 17:32 Health Concerns: stroke, systolic heart failure, medical non-compliance Plan of Treatment: This is pt's second stroke, was likely caused by pt's medical non-compliance. he has hx of afib but pt did not take his home meds Coumadin at home. Pt developed disphagia, now pt has PEG tube. pt has severe systolic heart failure with EF at 25-30%, advise pt followup cloth worker in one to two weeks. pt has his right internal carotid occluded, unfortunately he is not candidate for surgery now, a dvise pt followup neurologist and vascular surgeon as out-pt. Care Goals: stabilization and improvement of pt's medical conditions Assessment: discussed with pt and pt's brother Ryan Prince the care plan, they understood and agreed - SNF / [facility] Transition Orders Admit to (Facility): [facility] Under the care of (Name): Dr. Geoff Clancy Discharge Diagnosis: stroke, dysphagia with PEG feeding tube, systolic heart failure, afib, CKD, hypothyroidism, HTN, medical non-compliance, aspiration pneumonia Medicare Certification Statement: I certify that [facility] is medically necessary on a continuing basis for any of the conditions for which she/he is receiving care during hospitalization. Notify PCP of admission and forward orders to primary provider for signature. Weight on admission and: Daily Call PCP immediately if weight increases by: 2 kg Other Notification Orders: Call PCP immediately if patient develops dyspnea, chest pain/tightness or edema. House Bowel Program: Yes Additional Bowel Program Orders: If no BM after 2 days, nurse may give M.O.M. 30ml PO PRN and/or ducolax Supp 1 CT and/or ALEJANDRA 250mg P.O., and/or senna 1-2 tabs PO. On day 3 nurse may give repeat above order until residents constipation is resolved. Annual Influenza Vaccine (between Oct 13 and May 12): Yes Two-step PPD per [facility] [phone] or approved exception documents: Yes Treatments & Other Orders: This was pt's second stroke, was likely caused by pt's medical non-compliance. he has hx of afib but pt did not take his home meds Coumadin at home. Pt developed disphagia, now pt has PEG tube. pt has severe sy stolic heart failure with EF at 25-30%, advise pt followup cloth worker in one to two weeks. pt has his right internal carotid occluded, unfortunately he is not candidate for surgery now, advise pt followup neurologist and vascular surgeon as out-pt. pt is prescribed aspirin, lipitor for his stroke, continue PT/OT/ST. pt is prescribd Coreg, lisinopril, eliquis for his heart failure and afib. please followup nurse instruction for PEG tube feeding and care. Medication Orders: PLEASE REFER TO THE DISCHARGE MEDICATION LIST. Insulin Orders?: No - Medications New Prescriptions: Apixaban [Eliquis] 5 mg PEG BID #20 tablet Aspirin Chewable [[facility] Ravi Aspirin] 81 mg PEG DAILY #10 tablet Atorvastatin [Lipitor] 80 mg NG QPM #20 tablet carvediloL [Coreg] 12.5 mg NG BID #20 tablet Doxazosin [Cardura] 4 mg PEG QPM #10 tablet Lansoprazole [Prevacid] 30 mg PEG BID #20 capsule Levothyroxine [Synthroid] 112 mcg PEG QDAC #10 tablet Lisinopril [Zestril] 30 mg PO DAILY #10 tablet - Diet Type: Tube feeding - Therapies | Activity Therapy: Evaluation | Treat if indicated: Speech, PT, OT Rehabilitation Potential: Maximize functional status Activity: Activity as Tolerated"
--- NOTE | 2019-06-11 12:12 | DISCHARGE SUMMARY ---
"Discharge Summary Admit Date: 05/25/19 Discharge Date: 06/11/19 Discharging Provider: Devon Hendrickson Primary Care Provider: Dr. Geoff Clancy Condition at Discharge: Poor Discharge Disposition: SNF DC/Xfer Discharge Facility Name: [facility] - DIAGNOSES Admission Diagnoses: (1) Cerebrovascular accident (CVA) (2) Atrial fibrillation with rapid ventricular response (3) Hypertension (4) Chronic kidney disease, stage III (moderate) (5) Hypokalemia (6) Hypothyroidism Discharge Diagnoses with Status of Each Condition: (1) Cerebrovascular accident (CVA) pt had acute infarct stroke in the right brain. pt had PT/OT/ST evaluation and treatment, pt was recommended to SNF. pt had PEG tube done at hospital because of his dysphagia and aspiration pneumonia. pt is prescribed aspirin and lipitor. For all pt's medical conditions, and care plan I was discussed with pt's brother Ryan Prince, he agreed the care plan. advise pt followup neurologist (2) Dysphagia after pt had stroke, pt developed dysphagia, and can not swallow. Pt had PEG tube done at hospital. pt tolerate PEG tube feeding. Feeding is Jevity 1.2 80cc/h. advise followup nurse instruction for PEG tube care (3) Afib Assessment/Plan: stable, continue Heart rate meds and anticoagulation meds. pt's Coreg is increased 12.5 mg bid. pt is prescribed Eliquis (4) Hypothyroidism Assessment/Plan: stable, TSH was slight high, His thyroid dosage is slight higher than his home meds, dosage is 112mcg daily (5) Chronic kidney disease, stage III (moderate) improved/Stable (6) Chronic systolic heart failure ECHO reveals pt has EF was 25-30%. no signs of volume overload, he is able to sleep supine and breathes r.a. his bilateral leg has no edema. pt is prescribed Coreg and increased Lisinopril 30mg daily advise pt followup wrapper cashier (7) Hypertension stable (8) Aspiration pneumonia pt finished antibiotics treatment course in hospital. now pt is on PEG tube (9)right internal carotid occlusion pt was telephone consulted by our provider, he was not the candidate to have surgery at this time. advise pt followup vascular surgeon. when I ordered d/c, pt had 37.4 temperature. nurse did not report to me pt had 37.7 temperature at the time pt was discharged and pt already left the floor. - HPI History of Present Illness: refer from Dr. Way's HPI on 05/25/2019 This is a 69-year-old male with a past medical history significant for atrial fibrillation, hypertension, hypothyroidism, chronic kidney disease stage III, prior history of stroke who presents today complaining of left-sided weakness that began yesterday at 10 PM. He states he is a prior history of stroke about 10 years ago but has no residual deficits from that. At baseline, he ambulates on his own without a cane or walker. He states his symptoms have not improved today and that is why he sought medical attention. He reports feeling weak in his left arm and left leg. He is unable to move his left upper extremity except for squeezing his hand. He is barely able to lift his left leg off of the bed. He states he kept on falling at home because of the weakness. He reports no headache, blurry vision, numbness. He reports no right-sided weakness. He denies any chest pain, dyspnea. He states he does have hypertension and he is on antihypertensives but he did not take them today. States he is also on Coumadin but he is not always compliant with the medication. A family friend told the emergency department provider that his prescription for warfarin had a full bottle still. She also told the emergency department provider that he has not been himself this past few weeks and that he appears depressed. In the emergency department, he was found to be afebrile with temperature of 36.3 C. He was tachycardic with a heart rate of 134 and in atrial fibrillation. He was also hypertensive with a blood pressure of 195/156. He was not tachypneic and saturating well on room air. CT of the head was obtained which was concerning for an acute subacute 15 x 15 mm infarct in the right posterior frontal lobe. Given these findings, medicine was consulted for admission. I did discuss goals of care with the patient and he would like to be a full code. - CONSULTS | PROCEDURES Consultations: surgeon Dr. Rahman Procedures: PEG tube - HOSPITAL COURSE Hospital Course: pt was admitted for stroke. MRI of brain found pt had a extensive acute stroke, and Carotid of US found pt has right internal carotid occlusion. ECHO reveals EF at 25-30%. our provider consulted with neurologist, pt is not candidate for surgery for his right occlusion. pt's brother was notified for that. pt developed aspiration pneumonia. pt finished antibiotics treatment for his aspiration pneumonia. blood culture is negative. pt then agreed to have PEG tube, surgeon did put PEG for pt. pt tolerate the PEG feeding. pt had PT/OT/ST evaluation and treatment, pt was recommended to be d/c to SNF. discussed with pt and his brother Ryan Prince for all pt's medical conditions and treatment plan, both understood and agreed. pt was d/c to [facility]. The following is detail hospital course. (1) Cerebrovascular accident (CVA) pt had acute infarct stroke in the right brain. pt had PT/OT/ST evaluation and treatment, pt was recommended to SNF. pt had PEG tube done at hospital because of his dysphagia and aspiration pneumonia. pt is prescribed aspirin and lipitor. For all pt's medical conditions, and care plan I was discussed with pt's brother Ryan Prince, he agreed the care plan. advise pt followup neurologist (2) Dysphagia after pt had stroke, pt developed dysphagia, and can not swallow. Pt had PEG tube done at hospital. pt tolerate PEG tube feeding. Feeding is Jevity 1.2 80cc/h. advise followup nurse instruction for PEG tube care (3) Afib Assessment/Plan: stable, continue Heart rate meds and anticoagulation meds. pt's Coreg is increased 12.5 mg bid. pt is prescribed Eliquis (4) Hypothyroidism Assessment/Plan: stable, TSH was slight high, His thyroid dosage is slight higher than his home meds, dosage is 112mcg daily (5) Chronic kidney disease, stage III (moderate) improved/Stable (6) Chronic systolic heart failure ECHO reveals pt has EF was 25-30%. no signs of volume overload, he is able to sleep supine and breathes r.a. his bilateral leg has no edema. pt is prescribed Coreg and increased Lisinopril 30mg daily advise pt followup wrapper cashier (7) Hypertension stable (8) Aspiration pneumonia pt finished antibiotics treatment course in hospital. now pt is on PEG tube (9)right internal carotid occlusion pt was telephone consulted by our provider, he was not the candidate to have surgery at this time. advise pt followup vascular surgeon. when I ordered d/c, pt had 37.4 temperature. nurse did not report to me pt had 37.7 temperature at the time pt was discharged and pt already left the floor. - ALLERGIES Allergies/Adverse Reactions: Allergies Allergy/AdvReac Type Severity Reaction Status Date / Time erythromycin base Allergy Unknown Verified 05/25/19 17:32 - MEDICATIONS Home Medications: Ambulatory Orders Medication Instructions Recorded Confirmed Apixaban [Eliquis] 5 mg PEG BID #20 tablet 06/11/19 Aspirin Chewable [St Ravi 81 mg PEG DAILY #10 tablet 06/11/19 Aspirin] Atorvastatin [Lipitor] 80 mg NG QPM #20 tablet 06/11/19 Doxazosin [Cardura] 4 mg PEG QPM #10 tablet 06/11/19 Lansoprazole [Prevacid] 30 mg PEG BID #20 capsule 06/11/19 Levothyroxine [Synthroid] 112 mcg PEG QDAC #10 tablet 06/11/19 Lisinopril [Zestril] 30 mg PO DAILY #10 tablet 06/11/19 carvediloL [Coreg] 12.5 mg NG BID #20 tablet 06/11/19 - PHYSICAL EXAM AT DISCHARGE General Appearance: positive: No acute distress, Alert. negative: Lethargic Eyes Bilateral: positive: Normal inspection, PERRL, No lid inflammation ENT: positive: ENT inspection nml, No signs of dehydration. negative: Purulent nasal drainage, Oral lesions Neck: positive: Nml inspection, Thyroid nml, Trachea midline. negative: Thyromegaly, Stiff neck, Tracheal deviation Respiratory: positive: Chest non-tender, No respiratory distress. negative: Wheezes, Rales, Rhonchi Cardiovascular: positive: No murmur, No gallop, Irregularly irregular. negative: Extrasystoles, Tachycardia, Bradycardia, Systolic murmur, Diastolic murmur Peripheral Pulses: positive: 2+ Abdomen: positive: Non-tender, Nml bowel sounds, No distention. negative: Tenderness, Guarding, Rebound Back: positive: Nml inspection. negative: CVA tenderness (R), CVA tenderness (L) Skin: positive: Color nml, Warm, Dry. negative: Cyanosis, Diaphoresis, Pallor Extremities: positive: Non-tender. negative: Calf tenderness, Tawnya's sign/cords Neurologic/Psychiatric: positive: Oriented x3, Weakness, Sensory loss, Slurr ed/abnml speech. negative: Facial droop, Depressed mood/affect - LABS Result Diagrams: 06/11/19 05:35 04/29/20 05:35 - FOLLOW UP Follow Up: This was pt's second stroke, was likely caused by pt's medical non-compliance. he has hx of afib but pt did not take his home meds Coumadin at home. Pt developed disphagia, now pt has PEG tube. pt has severe systolic heart failure with EF at 25-30%, advise pt followup wrapper cashier in one to two weeks. pt has his right internal carotid occluded, unfortunately he is not candidate for surgery now, advise pt followup neurologist and vascular surgeon as out-pt. pt is prescribed aspirin, lipitor for his stroke, continue PT/OT/ST. pt is prescribd Coreg, lisinopril, eliquis for his heart failure and afib. please followup nurse instruction for PEG tube feeding and care. - TIME SPENT Time Spent in Discharge (Minutes): 30"
[2019-06-11 13:08] VITALS: BP 135/81
== END 2019-06-11 14:00 | DRG 64 ==
LOC: EDUNIT# → ED 17:23 → MS2 19:23
PROVIDERS: ADMIT Internal Medicine; ATTEND Nurse Practitioner Gerontology
PROC: 0DH63UZ Insertion of Feeding Device into Stomach, Percutaneous Approach (ICD-10-PCS; principal; 2019-06-02 10:30)
DX: I63.9 Cerebral infarction, unspecified (principal); G81.94 Hemiplegia, unspecified affecting left nondominant side; I63.231 Cerebral infarction due to unspecified occlusion or stenosis of right carotid arteries; J69.0 Pneumonitis due to inhalation of food and vomit; I10 Essential (primary) hypertension; G81.04 Flaccid hemiplegia affecting left nondominant side; I13.0 Hypertensive heart and chronic kidney disease with heart failure and stage 1 through stage 4 chronic kidney disease, or unspecified chronic kidney disease; I50.22 Chronic systolic (congestive) heart failure; I24.9 Acute ischemic heart disease, unspecified; I69.354 Hemiplegia and hemiparesis following cerebral infarction affecting left non-dominant side; I48.91 Unspecified atrial fibrillation; N18.3 Chronic kidney disease, stage 3 (moderate); R13.10 Dysphagia, unspecified; R29.810 Facial weakness; R47.81 Slurred speech; I69.398 Other sequelae of cerebral infarction; G93.89 Other specified disorders of brain; I69.392 Facial weakness following cerebral infarction; I69.328 Other speech and language deficits following cerebral infarction; T45.516A Underdosing of anticoagulants, initial encounter; Y92.009 Unspecified place in unspecified non-institutional (private) residence as the place of occurrence of the external cause; R29.711 NIHSS score 11; K29.70 Gastritis, unspecified, without bleeding; E03.9 Hypothyroidism, unspecified; E87.6 Hypokalemia; K59.00 Constipation, unspecified; I89.8 Other specified noninfective disorders of lymphatic vessels and lymph nodes; E66.9 Obesity, unspecified; Z68.37 Body mass index [BMI] 37.0-37.9, adult; H54.7 Unspecified visual loss; M19.90 Unspecified osteoarthritis, unspecified site; Z51.5 Encounter for palliative care; Z74.2 Need for assistance at home and no other household member able to render care; Z20.828 Contact with and (suspected) exposure to other viral communicable diseases; Z91.81 History of falling; Z79.01 Long term (current) use of anticoagulants; Z79.899 Other long term (current) drug therapy
CPT/HCPCS: 36415; 70450; 70551; 71045; 74018; 80048; 80053; 80061; 81001; 83036; 83690; 83735; 83880; 84100; 84134; 84439; 84443; 84484; 85025; 85520; 85610; 85730; 87040; 92610; 93005; 93306; 93880; 97112; 97162; 97167; 97530; 99223; 99285; A6250; A9270; U0002; U0004; 81003; 81599; 83721; 87086

== ENCOUNTER 2019-06-11 14:03 | Outpatient (CLI) | payer MEDICARE, MEDICAID | END 2019-06-11 14:04 | LOC: EMS 14:03 | PROVIDERS: ATTEND Surgery | DX: Z74.01 Bed confinement status (principal); I69.354 Hemiplegia and hemiparesis following cerebral infarction affecting left non-dominant side | CPT/HCPCS: A0425; A0428 ==